=== PATIENT | male | born 1955 | race Caucasian/White ===

== ENCOUNTER 2018-12-30 16:45 | Emergency (ER) | payer MEDICARE, MEDICAID ==
[~2018-12-30] VITALS: Ht 172.7 cm; Wt 68.2 kg
[~2018-12-30 16:45] MED LIST: ACET-76 PO; ASCO500C15 PO; ASPI-611 PO; ATOR-2 PO; AZAT50TA PO; CYAN100020 PO; DIVA125T31 PO; EZET10TA21 PO; FERR325T28 PO; INSU100C10 SQ; INSU100I31 SQ; LACT1CAP67 PO; LORA0.5T PO; MAGN400T39 PO; MULT-66 PO; NITR0.4T51 SL; PANT-47 PO; PREG150C PO; TAMS0.4C32 PO; ZINC50TA60 PF
[2018-12-30 18:39] LABS: BASOPHILS # (AUTO) 0.1 X10'3 (0-0.2); BASOPHILS % (AUTO) 0.9 % (0-1); EOSINOPHILS # (AUTO) 0.2 X10'3 (0-0.9); EOSINOPHILS % (AUTO) 3.3 % (0-6); HEMATOCRIT 47.7 % (42.0-52.0); HEMOGLOBIN 15.6 g/dl (14.0-17.9); LYMPHOCYTES # (AUTO) 1.7 X10'3 (1.1-4.8); LYMPHOCYTES % (AUTO) 23.9 % (21-51); MEAN CORPUSCULAR HEMOGLOBIN 28.6 PG (27.0-31.0); MEAN CORPUSCULAR HGB CONC 32.7 g/dL (33.0-36.5); MEAN CORPUSCULAR VOLUME 87.7 FL (78-98); MEAN PLATELET VOLUME 9.5 FL (7.4-10.4); MONOCYTES # (AUTO) 0.6 X10'3 (0-0.9); MONOCYTES % (AUTO) 8.1 % (2-12); NEUTROPHILS # (AUTO) 4.7 X10'3 (1.8-7.7); NEUTROPHILS % (AUTO) 63.8 % (42-75); PLATELET COUNT 145 X10'3 (140-440); RED BLOOD COUNT 5.44 X10'6 (4.70-6.10); RED CELL DISTRIBUTION WIDTH 15.4 % (11.5-14.5); WHITE BLOOD COUNT 7.3 X10'3 (4.5-11.0)
[2018-12-30 18:53] LABS: ALANINE AMINOTRANSFERASE 78 U/L (12-78); ALBUMIN 2.7 G/DL (3.4-5.0); ALBUMIN/GLOBULIN RATIO 0.9 (1.1-1.5); ALKALINE PHOSPHATASE 100 IU/L (46-116); ANION GAP 6 (8-16); ASPARTATE AMINO TRANSFERASE 69 U/L (10-37); BILIRUBIN,TOTAL 0.5 MG/DL (0.1-1.0); BLOOD UREA NITROGEN 25 MG/DL (7-18); BUN/CREATININE RATIO 26.3 (5.4-32.0); CALCIUM 8.1 MG/DL (8.5-10.1); CHLORIDE 110 MMOL/L (99-107); CREATININE 0.95 MG/DL (0.60-1.10); GLUCOSE 254 MG/DL (70-104); POTASSIUM 4.7 MMOL/L (3.5-5.1); SODIUM 144 MMOL/L (135-145); TOTAL CARBON DIOXIDE 27.8 MMOL/L (24-32); TOTAL PROTEIN 5.8 G/DL (6.4-8.2); eGFR 80 ML/MIN
[2018-12-30] MEDS ORDERED: normal saline 1000ML IV soln IVB ONE (19:00)
[2018-12-30 19:02] LABS: ETHANOL < 0.010 GM/DL (0.0-0.010)
--- NOTE | 2018-12-30 21:27 | NUR ---
Contact information: Caregiver Jia [phone], Caregivers Amphibious Operations Officer: Taty [phone]
--- NOTE | 2018-12-31 06:45 | NUR ---
Patient brought over from Main ER Bed 8 to Overflow Bed 24, via stretcher. Assisted into bed from stretcher, changed into green gowns, patient incontinent and cleaned with warm wipes. Non-verbal during this time.
--- NOTE | 2018-12-31 08:00 | NUR ---
Breakfast tray here. Patient fed his meal as he presents as incapable of caring for himself. Ate 75% of his meal. No facial expression noted throughtout this time.
[2018-12-31] MEDS ORDERED: divalproex sod 125mg tablet.DR PO SCH (08:59)
[2018-12-31] MEDS ORDERED: multivitamins, therapeutics tablet PO SCH (09:00)
[2018-12-31] MEDS ORDERED: acetaminophen 325mg tablet PO PRN (09:00)
[2018-12-31] MEDS ORDERED: nitroGLYCERIN 0.4mg SUBLingual tab SL PRN (09:00)
[2018-12-31] MEDS ORDERED: LORazepam 0.5 MG tablet PO PRN (09:00)
[2018-12-31] MEDS ORDERED: ezetimibe 10mg tablet PO SCH (09:00)
[2018-12-31] MEDS ORDERED: insulin Lispro (HumaLOG) vial - multi-dose SQ SCH ×3 (09:00→09:02)
[2018-12-31] MEDS ORDERED: pregabalin 75mg capsule PO PRN (09:00)
[2018-12-31] MEDS ORDERED: ferrous sulfate 325mg tablet PO SCH (09:04)
[2018-12-31] MEDS ORDERED: ascorbic acid 500mg tablet PO SCH (09:06)
[2018-12-31] MEDS ORDERED: aspirin 81mg tablet.DR PO SCH (09:07)
[2018-12-31] MEDS ORDERED: atorvastatin 20mg tablet PO SCH (09:08)
[2018-12-31] MEDS ORDERED: cyanocobalamin 500mcg tablet PO SCH (09:09)
[2018-12-31] MEDS ORDERED: lactobacillus rhamnosus 10,000 MMU CELLS/CAPSULE PO SCH (09:10)
[2018-12-31] MEDS ORDERED: magnesium oxide 400mg tablet PO SCH (09:11)
[2018-12-31] MEDS ORDERED: pantoprazole 40mg Tablet.DR PO SCH (09:14)
[2018-12-31] MEDS ORDERED: zinc sulfate 220mg capsule PO SCH (09:14)
[2018-12-31] MEDS ORDERED: tamsulosin 0.4mg capsule PO SCH (09:15)
--- NOTE | 2018-12-31 10:00 | NUR ---
Aline Montana RN, Director of [facility], here to evaluate patient for in-patient care.
--- NOTE | 2018-12-31 10:30 | NUR ---
Patient accepted for care at [facility] ([facility]). Gene ruiz from [facility] here to have patient sign voluntary forms for admission. Patient verbalized understanding of admission to [facility]. He has been there before and recognized staff Gene by name.
--- NOTE | 2018-12-31 11:15 | NUR ---
Patient discharged from Bed 24 in the Overflow area to be admitted to [facility]. Given all personal possessions and transported via wheelchair accompanied by Security and staff
[2018-12-31 12:38] VITALS: BP 135/67
[2018-12-31] MEDS ORDERED: insulin glargine (Lantus) pen - multi-dose SQ SCH (21:00)
[2019-01-01] MEDS ORDERED: MELA3TAB64 PO (11:26)
[2019-01-01] MEDS ORDERED: FLUO20CA39 PO (11:26)
[2019-01-01] MEDS ORDERED: DIVA500T9 PO (11:37)
== END 2018-12-31 11:15 ==
LOC: ER 16:47
DX: R62.7 Adult failure to thrive (principal); E86.0 Dehydration; F79 Unspecified intellectual disabilities; E11.9 Type 2 diabetes mellitus without complications; F20.9 Schizophrenia, unspecified; J44.9 Chronic obstructive pulmonary disease, unspecified; Z79.82 Long term (current) use of aspirin; Z79.4 Long term (current) use of insulin; Z79.899 Other long term (current) drug therapy
CPT/HCPCS: 36415; 71045; 80053; 80320; 82948; 84443; 85025; 96360; 96372; 99284; J1815; J7030; J7500

== ENCOUNTER 2018-12-31 11:33 | Inpatient (IN) | payer MEDICARE, MEDICAID ==
[~2018-12-31] VITALS: Ht 172.7 cm; Wt 60.5 kg
[2018-12-31] MEDS ORDERED: mag hydrox/Alum hydrox/simeth 30ml oral suspension PO PRN (12:00)
[2018-12-31] MEDS ORDERED: magnesium hydroxide 30ml (MOM) UD suspension PO PRN (12:00)
[2018-12-31] MEDS ORDERED: LORazepam 1 MG tablet PO PRN (12:00)
[2018-12-31] MEDS ORDERED: hydrOXYzine 25 MG tablet PO PRN (12:00)
[2018-12-31] MEDS ORDERED: acetaminophen 325mg tablet PO PRN ×2 (12:00)
[2018-12-31] MEDS ORDERED: loperamide 2mg capsule PO PRN (12:00)
--- NOTE | 2018-12-31 12:48 | NUR ---
Admission note: Pt admitted voluntarily at 1135 for psychosis from the emergency room. Pt has been unable to feed himself, or shower self, and not taking his medications or speaking or answering questions. Pt was at [facility] with pneumonia. They were unable to get pt on 5150. Pts caregivers brought pt here for help with his schizophrenia. [facility] called and will pick pt up when he is discharged. Call Taty [phone] first and Jia [phone] second. PT HAS HISTORY OF SCHIZOPHRENIA AND DIABETES
[2018-12-31] MEDS ORDERED: INSULIN LISPRO 10 UNIT SQ SCH (13:40)
[2018-12-31] MEDS ORDERED: LORazepam 0.5 MG tablet PO PRN ×2 (13:40→20:15)
[2018-12-31] MEDS ORDERED: nitroGLYCERIN 0.4mg SUBLingual tab SL PRN (13:40)
[2018-12-31] MEDS ORDERED: dextrose 50%-water 50ml dispensing syringe IV PRN ×2 (13:40)
[2018-12-31] MEDS ORDERED: MESSAGE TO PHARMACY PO ONE (13:40)
[2018-12-31] MEDS ORDERED: glucagon, human recombinant 1mg kit SUBCUT PRN (13:40)
[2018-12-31 14:24] VITALS: BP 146/67
[2018-12-31] MEDS: insulin Lispro (HumaLOG) vial - multi-dose SQ SCH ×2 (15:05→21:21)
--- NOTE | 2018-12-31 17:38 | NUR ---
sister Griselda [phone]
--- NOTE | 2018-12-31 18:25 | NUR ---
Nurse note: Pt has a sister that is POA for Medical and is in [facility] until Jan 08. Pt was able to sign his paperwork. Pts sister Griselda states he is allowed to sign when he is capable to. Pts family understands he goes through these "Spells" and the reason is undetermined. Family is aware pt is here and being treated.
[2018-12-31 20:00] VITALS: BP 160/69
[2018-12-31] MEDS: LORazepam 0.5 MG tablet PO SCH (20:51)
[2018-12-31] MEDS ORDERED: insulin glargine (Lantus) pen - multi-dose SQ SCH (21:00)
[2018-12-31] MEDS: insulin glargine (Lantus) pen - multi-dose SQ SCH (21:26)
--- NOTE | 2018-12-31 23:04 | NUR ---
Pt is non contributory with assessment. Pt is cooperative and responds to command, but does not answer questions and just looks blankly at RN. Addendum: 12/31/18 at 2314 by Julia Ramos RN Amended: Links added.
--- NOTE | 2019-01-01 00:12 | NUR ---
NURSING PROGRESS REPORT: Legal hold: Voluntary Client on voluntary status for GD. Report received from FRANK Park with use of SBAR. Why are they here: Pt. admitted for a mental health evaluation. His staff of the [facility] residence he lives at in [place] stated Mr. Turpin has been refusing to care for himself for the past week. According to staff, Mr. Turpin has not been eating or drinking, and has not been taking his medications. Per staff, Mr. Turpin has schizophrenia and has gone into catatonic states in the past associated with his diabetes. Mr. Turpin was seen at [facility] prior to this admission and prescribed antibiotics for possible pneumonia. Assessment What has happened this shift: Pt was sitting in group room eating his dinner at shift change. This conventional underwriter introduced self and attempted to establish rapport. Pt presents as possible agitated or scared. Pt is cooperative, non verbal, but responds to commands and accepting of direction or redirection; however does not respond to questions. Pt stares blankly at this conventional underwriter. Pt is able to feed self, but needs assistance in cutting up meat. Pt is insulin dependent diabetic. Pt finished his dinner around 1999, then was escorted back to his room. Pt's blood glucose at 1705 was 331; HS blood glucose was 381. Per diabetic protocol Level 3, pt was administered 15 units of Humalog and pt was started at 12 units of Lantus per admin protocol. GFR was 80. 1:1 assessment was completed at bedside, pt was cooperative, again pt did not answer questions. Pt is incontinent x2. Brief was changed prior to bed by DONNY Morin. Pt uses a FWW. Pt is medication compliant. Pt's IV was discontinued, catheter was intact. S/I, H/I: Unable to assess A/VH: Unable to assess. Sleep: Currently sleeping. See sleep assessment notation. ADL's: Needs assistance. Pt uses a FWW, incontinent of stool Group attendance: motion picture set up worker, no group. Were meds taken: Medication compliant. Any med S/E: None reported or observed. Mental Status Exam Appearance: Disheveled, wearing green unit scrubs, pt looks older then stated age. Eye contact: Poor Behavior: Cooperative, delayed Speech: Non verbal Mood: Unable to assess Affect: Catatonic Thought process: Unable to assess Thought Content: Unable to assess Cognition: Alert Insight: Unable to assess Judgment: Unable to assess Interventions PRN's used: None Therapeutic interventions: 1:1 therapeutic assessment, medication administration/education/monitoring, provided clear/simple instructions, Q15 min safety checks. Restraints/seclusion/emergency medication: N/A Justification of Continued Inpatient Treatment: Pt is gravely disabled and needs therapeutic support and medication management to provide stablization.
[2019-01-01 07:30] VITALS: BP 149/63
[2019-01-01] MEDS: LORazepam 0.5 MG tablet PO SCH ×3 (07:44→21:11)
[2019-01-01] MEDS: multivitamins, therapeutics tablet PO SCH (07:46)
[2019-01-01] MEDS: pantoprazole 40mg Tablet.DR PO SCH (07:47)
[2019-01-01] MEDS: cyanocobalamin 500mcg tablet PO SCH (07:47)
[2019-01-01] MEDS: aspirin 81mg tablet.DR PO SCH (07:48)
[2019-01-01] MEDS: tamsulosin 0.4mg capsule PO SCH (07:48)
[2019-01-01] MEDS: magnesium oxide 400mg tablet PO SCH (07:50)
[2019-01-01 07:59] LABS: HEMOGLOBIN A1C 9.1 % (4.5-6.2)
[2019-01-01] MEDS ORDERED: divalproex sod 125mg tablet.DR PO SCH (08:00)
[2019-01-01] MEDS ORDERED: ascorbic acid 500mg tablet PO SCH (08:00)
[2019-01-01] MEDS ORDERED: lactobacillus rhamnosus 10,000 MMU CELLS/CAPSULE PO SCH (08:00)
[2019-01-01] MEDS ORDERED: atorvastatin 20mg tablet PO SCH (08:00)
[2019-01-01] MEDS ORDERED: ferrous sulfate 325mg tablet PO SCH (08:00)
[2019-01-01] MEDS ORDERED: ezetimibe 10mg tablet PO SCH (08:00)
[2019-01-01] MEDS ORDERED: zinc sulfate 220mg capsule PO SCH (08:00)
[2019-01-01 08:28] LABS: CHOL/HDL RATIO 2.7 (0.00-4.99); CHOLESTEROL 87 MG/DL (0-200); HDL CHOLESTEROL 32 MG/DL (35-60); LDL CHOLESTEROL 45 MG/DL (50-100); TRIGLYCERIDES 64 MG/DL (20-135)
[2019-01-01] MEDS: insulin Lispro (HumaLOG) vial - multi-dose SQ SCH ×3 (09:09→18:30)
[2019-01-01] MEDS: aripiprazole 5mg tablet PO SCH (09:11)
[2019-01-01] MEDS ORDERED: FLUO20CA39 PO (11:26)
[2019-01-01] MEDS ORDERED: MELA3TAB64 PO (11:26)
[2019-01-01] MEDS ORDERED: DIVA500T9 PO (11:37)
--- NOTE | 2019-01-01 14:56 | NUR ---
DM consult: Pt with hx T1DM current A1c 9.1. Per H&P pt with a decline in self care x 1 week by not eating, drinking, or taking medications per rx. Per physical assessment pt is A/O x 2 and nonverbal. 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 Pt currently not appropriate for DM education at this time. Pt on CHO controlled mech soft/chop all diet with 50% PO intake first meal however now up to 100% meeting nutrient needs. LBM 12/31. No edema or wounds. Will continue to follow. Recommendations: 1) Continue mech soft/chop all CHO controlled diet 2) DM education prior to discharge IF appropriate 3) Routine bowel care 4) Weekly wt Addendum: 01/01/19 at [address] Amended: Links added.
--- NOTE | 2019-01-01 17:50 | NUR ---
NURSING PROGRESS REPORT: Legal hold: Voluntary Client on voluntary status for GD. Report received from FRANK Park with use of SBAR. Why are they here: Pt. admitted for a mental health evaluation. His staff of the [facility] residence he lives at in [place] stated Pt. has been refusing to care for himself for the past week. According to staff, Pt. has not been eating or drinking, and has not been taking his medications. Per staff, Pt. has schizophrenia and has gone into catatonic states in the past associated with his diabetes. Pt. was seen at [facility] prior to this admission and prescribed antibiotics for possible pneumonia. Assessment What has happened this shift: Pt. sleeping at start of shift. Pt. woken up for blood glucose test. Pt.'s CBG were AM 278, Noon 345, and dinner 253. Pt. is level 6 hyperglycemia protocol. 1:1 done at bedside. Pt. is developmentally delayed. Pt. cooperative but gives minimal responses. Pt. took all medications and ate all meals in community room. Pt. needs much prompting for meals and sometimes requires staff to feed him. Pt. is incontinent and needs assistance toileting. S/I, H/I: unable to assess A/VH: Unable to assess Sleep: Pt. napped x2 today. ADL's: Needs assistance. Pt uses a FWW, incontinent of stool Group attendance: Afternoon group. Were meds taken: Medication compliant. Any med S/E: None reported or observed. Mental Status Exam Appearance: Disheveled, wearing green unit scrubs Eye contact: Poor Behavior: Cooperative, delayed Speech: Minimal Mood: Unable to assess Affect: Catatonic Thought process: Unable to assess Thought Content: Unable to assess Cognition: Alert Insight: Unable to assess Judgment: Unable to assess Interventions PRN's used: None Therapeutic interventions: 1:1 therapeutic assessment, medication administration/education/monitoring, provided clear/simple instructions, Q15 min safety checks. Restraints/seclusion/emergency medication: N/A Justification of Continued Inpatient Treatment: Pt is gravely disabled and needs therapeutic support and medication management to provide stablization.
[2019-01-01 20:00] VITALS: BP 139/58
[2019-01-01] MEDS: Melatonin 3mg tablet PO SCH (21:12)
[2019-01-01] MEDS: insulin glargine (Lantus) pen - multi-dose SQ SCH (21:33)
--- NOTE | 2019-01-02 01:23 | NUR ---
NURSING PROGRESS REPORT: Legal hold: Voluntary Client on voluntary status for GD. Report received from FRANK Park with use of SBAR. Why are they here: Pt. admitted for a mental health evaluation. His staff of the [facility] residence he lives at in [place] stated Mr. Turpin has been refusing to care for himself for the past week. According to staff, Mr. Turpin has not been eating or drinking, and has not been taking his medications. Per staff, Mr. Turpin has schizophrenia and has gone into catatonic states in the past associated with his diabetes. Mr. Turpin was seen at [facility] prior to this admission and prescribed antibiotics for possible pneumonia. Assessment What has happened this shift: Pt sitting in group room finishing his dinner at shift change. Pt appears to be less angry and is more verbal. When asked if pt remembered nurse from yesterday he nodded yes. Pt does answer questions with minimal, delayed responses. Pt's continues to be cooperative. 1:1 assessment was completed at bedside. Pt is on Level 6 insulin protocol. Pt's HS blood glucose was 221. Due to Lantus protocol hospitalist was paged about increase of insulin. Per Dr. Gordon pt was to get 14 units of Lantus. Pt medication compliant. Pt is incontinent x2 and needs assistance toileting. Pt's brief was changed prior to going to bed, currently sleeping with distress noted. S/I, H/I: Unable to assess A/VH: Unable to assess. Sleep: Currently sleeping. See sleep assessment notation. ADL's: Needs assistance. Pt uses a FWW, incontinent x2 Group attendance: restaurant shift supervisor, no group. Were meds taken: Medication compliant. Any med S/E: None reported or observed. Mental Status Exam Appearance: Disheveled, wearing green unit scrubs, pt looks older then stated age. Eye contact: Poor Behavior: Cooperative, delayed Speech: Soft, minimal Mood: Unable to assess Affect: Catatonic Thought process: Unable to assess Thought Content: Unable to assess Cognition: Alert Insight: Unable to assess Judgment: Unable to assess Interventions PRN's used: None Therapeutic interventions: 1:1 therapeutic assessment, medication administration/education/monitoring, provided clear/simple instructions, Q15 min safety checks. Restraints/seclusion/emergency medication: N/A Justification of Continued Inpatient Treatment: Pt is gravely disabled and needs therapeutic support and medication management to provide stablization. Addendum: 01/02/19 at 0126 by Julia Ramos RN Pt's A1C was 9.1. Pt prescribed 6mg Melatonin HS, tables come in 3mg only. Will need to have RX adjusted. Will endorse to day shift. Addendum: 01/02/19 at 0546 by Julia Ramos RN Encouraged fluids during encounters.
[2019-01-02 07:30] VITALS: BP 150/66
[2019-01-02] MEDS: aspirin 81mg tablet.DR PO SCH (07:32)
[2019-01-02] MEDS: magnesium oxide 400mg tablet PO SCH (07:32)
[2019-01-02] MEDS: multivitamins, therapeutics tablet PO SCH (07:32)
[2019-01-02] MEDS: FLUoxetine 20mg capsule PO SCH (07:33)
[2019-01-02] MEDS: LORazepam 0.5 MG tablet PO SCH ×3 (07:33→21:09)
[2019-01-02] MEDS: aripiprazole 5mg tablet PO SCH (07:34)
[2019-01-02] MEDS: cyanocobalamin 500mcg tablet PO SCH (07:35)
[2019-01-02] MEDS: pantoprazole 40mg Tablet.DR PO SCH (07:35)
[2019-01-02] MEDS: tamsulosin 0.4mg capsule PO SCH (07:35)
[2019-01-02] MEDS: divalproex sod 250mg ER (24-hour) tablet PO SCH (08:05)
[2019-01-02] MEDS: insulin Lispro (HumaLOG) vial - multi-dose SQ SCH ×3 (08:57→18:20)
--- NOTE | 2019-01-02 17:30 | NUR ---
NURSING PROGRESS REPORT: Legal hold: Voluntary Client on voluntary status for GD. Report received from FRANK Park with use of SBAR. Why are they here: Pt. admitted for a mental health evaluation. His staff of the [facility] residence he lives at in [place] stated Mr. Turpin has been refusing to care for himself for the past week. According to staff, Mr. Turpin has not been eating or drinking, and has not been taking his medications. Per staff, Mr. Turpin has schizophrenia and has gone into catatonic states in the past associated with his diabetes. Mr. Turpin was seen at [facility] prior to this admission and prescribed antibiotics for possible pneumonia. Assessment What has happened this shift: Pt. sleeping at start of shift. Pt. woken up for AM CBG and medications. BG today were 224, 256, 135. Pt. is level 6 on hyperglycemic protocol. Pt. took all medications. Pt. walked to community room for breakfast with aid of walker. Pt. ate his breakfast by himself within an hour. Pt. is on hyperglycemic protocol level 6. Pt. given sliding scale humolog. Pt.'s Lantus increased to 18 units QHS. Pt. is incontinent of bowel and bladder. Pt. needs prompting for toileting Pt. showered today. Pt. encouraged with po fluids. Pt. napped x2. Pt. will feed himself with prompting. S/I, H/I: Unable to assess A/VH: Unable to assess. Sleep: Currently sleeping. See sleep assessment notation. ADL's: Needs assistance. Pt uses a FWW, incontinent x1 Group attendance: Yes Were meds taken: Yes Any med S/E: None reported or observed. Mental Status Exam Appearance: Disheveled, wearing green unit scrubs, Eye contact: Poor Behavior: Cooperative, delayed Speech: Soft, minimal, delayed Mood: Unable to assess Affect: blunted Thought process: Unable to assess Thought Content: Unable to assess Cognition: A&O to self and place (knew he was in [place]) Insight: Unable to assess Judgment: Unable to assess Interventions PRN's used: None Therapeutic interventions: 1:1 therapeutic assessment, medication administration/education/monitoring, provided clear/simple instructions, Q15 min safety checks. Restraints/seclusion/emergency medication: N/A Justification of Continued Inpatient Treatment: Pt is gravely disabled and needs therapeutic support and medication management to provide stablization.
[2019-01-02 19:57] VITALS: BP 154/58
[2019-01-02] MEDS: dextrose ORAL solution 15 GM/59 ML bottle PO PRN (21:08)
[2019-01-02] MEDS: Melatonin 3mg tablet PO SCH (21:09)
[2019-01-02] MEDS: insulin glargine (Lantus) pen - multi-dose SQ SCH (22:26)
--- NOTE | 2019-01-03 04:40 | NUR ---
NURSING PROGRESS REPORT: Legal hold: Voluntary Client on voluntary status for GD. Report received from ANUJ Park with use of SBAR. Why are they here: Pt. admitted for a mental health evaluation. His staff of the [facility] residence he lives at in [place] stated Mr. Turpin has been refusing to care for himself for the past week. According to staff, Mr. Turpin has not been eating or drinking, and has not been taking his medications. Per staff, Mr. Turpin has schizophrenia and has gone into catatonic states in the past associated with his diabetes. Mr. Turpin was seen at [facility] prior to this admission and prescribed antibiotics for possible pneumonia. Assessment What has happened this shift: Patient in group room finishing dinner at the beginning of shift. Patient also consumed HS snack in the group room. Patient is a level six per insulin protocol. Initial HS BS 70 at 2044, CRN aware and glucose shot provided at 2109, 2134 patient BS 152 and HS Lantus provided per order. Later in the shift while patient at rest his BS recheck 133. Patient was vocally nonresponsive to all assessment questions and replied "yes" or "no" to a few questions but most of the shift patient non-vocal. Patient would look in the direction of this health science writer when being talked to and when coached through an action showed understanding through body language. Such as, this health science writer explained his pills and he held them in his hand, looked at them, then took them. S/I, H/I: Unable to assess A/VH: Unable to assess. Sleep: asleep at this time ADL's: Needs assistance. Group attendance: no groups this shift Were meds taken: Yes Any med S/E: None reported or observed. Mental Status Exam Appearance: Disheveled, wearing green unit scrubs Eye contact: Poor Behavior: Cooperative, delayed Speech: Soft, minimal, delayed Mood: Unable to assess Affect: blunted Thought process: Unable to assess Thought Content: Unable to assess Cognition: responsive to name, didn't answer questions from this health science writer Insight: Unable to assess Judgment: Unable to assess Interventions PRN's used: PO glucose per protocol, effective Therapeutic interventions: 1:1 therapeutic assessment, medication administration/education/monitoring, provided clear/simple instructions, Q15 min safety checks. Restraints/seclusion/emergency medication: N/A Justification of Continued Inpatient Treatment: Pt is gravely disabled and needs therapeutic support and medication management to provide stablization.
[2019-01-03] MEDS: tamsulosin 0.4mg capsule PO SCH (07:27)
[2019-01-03] MEDS: FLUoxetine 20mg capsule PO SCH (07:28)
[2019-01-03] MEDS: LORazepam 0.5 MG tablet PO SCH ×3 (07:29→20:46)
[2019-01-03] MEDS: aspirin 81mg tablet.DR PO SCH (07:29)
[2019-01-03] MEDS: aripiprazole 5mg tablet PO SCH (07:29)
[2019-01-03] MEDS: multivitamins, therapeutics tablet PO SCH (07:30)
[2019-01-03] MEDS: pantoprazole 40mg Tablet.DR PO SCH (07:30)
[2019-01-03] MEDS: cyanocobalamin 500mcg tablet PO SCH (07:30)
[2019-01-03] MEDS: magnesium oxide 400mg tablet PO SCH (07:30)
[2019-01-03] MEDS: divalproex sod 250mg ER (24-hour) tablet PO SCH (07:35)
[2019-01-03 08:00] VITALS: BP_SYST 144; BP_DIAS 71; BP_DIAS 72
[2019-01-03] MEDS: insulin Lispro (HumaLOG) vial - multi-dose SQ SCH ×2 (09:17→14:10)
--- NOTE | 2019-01-03 13:04 | NUR ---
NURSING PROGRESS REPORT: Legal hold: Voluntary Client on voluntary status for GD. Report received from Renetta Werner RN with use of SBAR. Why are they here: Pt. admitted for a mental health evaluation. His staff of the [facility] residence he lives at in [place] stated Mr. Turpin has been refusing to care for himself for the past week. According to staff, Mr. Turpin has not been eating or drinking, and has not been taking his medications. Per staff, Mr. Turpin has schizophrenia and has gone into catatonic states in the past associated with his diabetes. Mr. Turpin was seen at [facility] prior to this admission and prescribed antibiotics for possible pneumonia. Assessment What has happened this shift: Nela was found in the group room at change of shift. He is mostly nonverbal. He did answer several questions with yes or no that were closed ended questions. He ate all of the food that was served to him although it took him an extraordinarily long time to finish his food. He required some prompting and cutting of his food into smaller bites. He ambulates well using a walker. He is able to swallow his medications. He offers his finger for blood glucose checks. Blood sugars were 144 and 331. he continues to be a level 6. S/I, H/I: Unable to assess A/VH: Unable to assess. Sleep: Currently sleeping. See sleep assessment notation. ADL's: Needs assistance. Pt uses a FWW, incontinent x1 Group attendance: Yes Were meds taken: Yes Any med S/E: None reported or observed. Mental Status Exam Appearance: Disheveled, wearing green unit scrubs, Eye contact: Poor Behavior: Cooperative, delayed Speech: Soft, minimal, delayed Mood: Unable to assess Affect: blunted Thought process: Unable to assess Thought Content: Unable to assess Cognition: A&O to self and place (knew he was in [place]) Insight: Unable to assess Judgment: Unable to assess Interventions PRN's used: None Therapeutic interventions: 1:1 therapeutic assessment, medication administration/education/monitoring, provided clear/simple instructions, Q15 min safety checks. Restraints/seclusion/emergency medication: N/A Justification of Continued Inpatient Treatment: Pt is gravely disabled and needs therapeutic support and medication management to provide stablization.
[2019-01-03 19:35] VITALS: BP 167/77
[2019-01-03] MEDS: Melatonin 3mg tablet PO SCH (20:47)
[2019-01-03] MEDS: insulin glargine (Lantus) pen - multi-dose SQ SCH (21:00)
--- NOTE | 2019-01-03 22:03 | NUR ---
NURSING PROGRESS REPORT: Legal hold: Voluntary Client on voluntary status for GD. Report received from FRANK Park with use of SBAR. Why are they here: Pt. admitted for a mental health evaluation. His staff of the [facility] residence he lives at in [place] stated Mr. Turpin has been refusing to care for himself for the past week. According to staff, Mr. Turpin has not been eating or drinking, and has not been taking his medications. Per staff, Mr. Turpin has schizophrenia and has gone into catatonic states in the past associated with his diabetes. Mr. Turpin was seen at [facility] prior to this admission and prescribed antibiotics for possible pneumonia. Assessment What has happened this shift: Nela was found in the group room at change of shift. He is mostly nonverbal. He did answer several questions with yes or no that were closed ended questions. He ate all of the food that was served to him although it took him an extraordinarily long time to finish his food. He ambulates well using a walker. He is able to swallow his medications. He offers his finger for blood glucose checks. Blood sugars were 65 @HS and lantus was held. he continues to be a level 6. S/I, H/I: Unable to assess A/VH: Unable to assess. Sleep: Currently sleeping. See sleep assessment notation. ADL's: Needs assistance. Pt uses a FWW, incontinent x1 Group attendance: Yes Were meds taken: Yes Any med S/E: None reported or observed. Mental Status Exam Appearance: Disheveled, wearing green unit scrubs, Eye contact: Poor Behavior: Cooperative, delayed Speech: Soft, minimal, delayed Mood: Unable to assess Affect: blunted Thought process: Unable to assess Thought Content: Unable to assess Cognition: A&O to self and place (knew he was in [place]) Insight: Unable to assess Judgment: Unable to assess Interventions PRN's used: None Therapeutic interventions: 1:1 therapeutic assessment, medication administration/education/monitoring, provided clear/simple instructions, Q15 min safety checks. Restraints/seclusion/emergency medication: N/A Justification of Continued Inpatient Treatment: Pt is gravely disabled and needs therapeutic support and medication management to provide stablization.
[2019-01-04] MEDS: LORazepam 0.5 MG tablet PO SCH ×3 (07:19→20:54)
[2019-01-04] MEDS: aspirin 81mg tablet.DR PO SCH (07:19)
[2019-01-04] MEDS: cyanocobalamin 500mcg tablet PO SCH (07:20)
[2019-01-04] MEDS: pantoprazole 40mg Tablet.DR PO SCH (07:20)
[2019-01-04] MEDS: multivitamins, therapeutics tablet PO SCH (07:20)
[2019-01-04] MEDS: magnesium oxide 400mg tablet PO SCH (07:20)
[2019-01-04] MEDS: tamsulosin 0.4mg capsule PO SCH (07:20)
[2019-01-04] MEDS: FLUoxetine 20mg capsule PO SCH (07:20)
[2019-01-04 08:00] VITALS: BP 154/53
[2019-01-04] MEDS: insulin Lispro (HumaLOG) vial - multi-dose SQ SCH ×2 (09:10→19:17)
[2019-01-04] MEDS: divalproex sod 250mg ER (24-hour) tablet PO SCH (09:11)
--- NOTE | 2019-01-04 16:32 | NUR ---
NURSING PROGRESS REPORT: Papi Legal hold: Voluntary Client on voluntary status for GD. Report received from FRANK Brand with use of SBAR. Why are they here: Pt. admitted for a mental health evaluation. His staff of the [facility] residence he lives at in [place] stated Mr. Turpin has been refusing to care for himself for the past week. According to staff, Mr. Turpin has not been eating or drinking, and has not been taking his medications. Per staff, Mr. Turpin has schizophrenia and has gone into catatonic states in the past associated with his diabetes. Mr. Turpin was seen at [facility] prior to this admission and prescribed antibiotics for possible pneumonia. Assessment What has happened this shift: Patient was in bed to begin this shift. After assessment, client refused am finger stick. He said, "no" and pulled his hand back when asked to conduct finger stick. Client was mute the rest of the assessment. Soil Science Technical Officer was able to obtain a FS and it was 344, Currently (0844 hours) waiting for client to finish am meal so proper insulin dose can be given. Client is able to self feed but would do much better if he was assisted while eating. Client was given his Insulin per orders at 0905. Correctional dose was 28 units and Nutritional adjustment was for 18 additional units for a total of 46 units delivered in left arm. Compliant with medications and consumed majority of breakfast meal. Client was assisted back to his room after breakfast where he rested in bed with eyes closed .Respirations unlabored. No signs /symptoms of hyper/hypo glycemia noted. Client was prompted to come to Group room for lunch, Client was having a difficult time feeding himself so he was assisted by this marketing copywriter and he consumed 100% of his lunch. Client elected to participate in afternoon group and tolerated the group activities well. Client did refuse FS at noon and was adament that procedure would not be conducted, (forcefully pulled away). He was assessed frequently this afternoon after refusal and shows no S/S of hyper/hypo glycemia. Charge Nurse aware. S/I, H/I: Unable to assess A/VH: Unable to assess. Sleep: Rested during shift as needed. ADL's: Needs assistance and prompts. Group attendance: Yes Were meds taken: Yes Any med S/E: None reported or observed. Mental Status Exam Appearance: Disheveled, wearing green unit scrubs, Eye contact: Poor Behavior: Cooperative, delayed Speech: Soft, minimal, delayed Mood: Unable to assess Affect: blunted Thought process: Unable to assess Thought Content: Unable to assess Cognition: A&O to self and place (knew he was in [place]) Insight: Unable to assess Judgment: Unable to assess Interventions PRN's used: None Therapeutic interventions: 1:1 therapeutic assessment, medication administration/education/monitoring, provided clear/simple instructions, Q15 min safety checks. Restraints/seclusion/emergency medication: N/A Justification of Continued Inpatient Treatment: Pt is gravely disabled and needs therapeutic support and medication management to provide stablization. Addendum: 01/04/19 at 1702 by Son Ruiz RN Client permitted a FS at about 1645 hours. Result was 335. Client refused FS at noon meal. Addendum: 01/04/19 at 1801 by Son Ruiz RN Fs at 1730 was 348. Info was passed to Xavier LESLIE as well as Rell who has this patient over the night warehouse manager. Addendum: 01/04/19 at 1812 by Son Ruiz RN Client was incontinent of urine before evening meal. Client was cleaned, dressed and escorted to dinner in the Group room.
[2019-01-04] MEDS ORDERED: insulin regular, human 10 units/0.1 ml syringe SQ ONE (20:35)
--- NOTE | 2019-01-04 20:38 | NUR ---
Contacted P Dr Cantu regarding patients blood sugar of 462, ordered 18 u Regular now and also administer patients scheduled dose of Lantus and recheck blood sugar in 6 hours. Addendum: 01/04/19 at 2105 by Serina Gardner RN Clarification: Order was for Humalog Lispro 18 U now.
[2019-01-04 20:48] VITALS: BP 174/76
[2019-01-04] MEDS: Melatonin 3mg tablet PO SCH (20:52)
[2019-01-04] MEDS: aripiprazole 5mg tablet PO SCH (20:53)
[2019-01-04] MEDS ORDERED: insulin Lispro (HumaLOG) vial - multi-dose SQ ONE (21:05)
[2019-01-04] MEDS: insulin glargine (Lantus) pen - multi-dose SQ SCH (21:05)
--- NOTE | 2019-01-05 03:41 | NUR ---
NURSING PROGRESS REPORT Legal hold: Voluntary Client on voluntary status for GD. Report received from FRANK Park with use of SBAR. Why are they here: Pt. admitted for a mental health evaluation. His staff of the [facility] residence he lives at in [place] stated Mr. Turpin has been refusing to care for himself for the past week. According to staff, Mr. Turpin has not been eating or drinking, and has not been taking his medications. Per staff, Mr. Turpin has schizophrenia and has gone into catatonic states in the past associated with his diabetes. Mr. Turpin was seen at [facility] prior to this admission and prescribed antibiotics for possible pneumonia. Assessment What has happened this shift: Pt spent evening sitting up in Dining room. Pt was calm with constricted affect. Pt took several minutes to answer questions but would answer yes or no. Pt is mostly non verbal at this time. Pts BG was 348 at dinner and pt ate approx 15carbs, pt was given 27 units of insulin per protocol. Evening BG was 462, hospitalist was contacted and we were instructed to give 18U of regular insulin and 18 units of Lantus and recheck BG 6 hours later. Pts BG was 56. Pt was given a snack and recheckd in 15 min to BG of 108. Pt is currently asymptomatic and resting comfortably. Pt S/I, H/I: Unable to assess A/VH: Unable to assess. Sleep: Pt sleeping well ADL's: Needs assistance and prompts. Group attendance: Yes Were meds taken: Yes Any med S/E: None reported or observed. Mental Status Exam Appearance: Disheveled, wearing green unit scrubs, Eye contact: Fair Behavior: Cooperative, delayed Speech: Soft, minimal, delayed Mood: Unable to assess Affect: blunted Thought process: Unable to assess Thought Content: Unable to assess Cognition: A&O to self Insight: Unable to assess Judgment: Unable to assess Interventions PRN's used: None Therapeutic interventions: 1:1 therapeutic assessment, medication administration/education/monitoring, provided clear/simple instructions, Q15 min safety checks. Restraints/seclusion/emergency medication: N/A Justification of Continued Inpatient Treatment: Pt is gravely disabled and needs therapeutic support and medication management to provide stablization.
[2019-01-05] MEDS: aspirin 81mg tablet.DR PO SCH (07:24)
[2019-01-05] MEDS: pantoprazole 40mg Tablet.DR PO SCH (07:24)
[2019-01-05] MEDS: magnesium oxide 400mg tablet PO SCH (07:24)
[2019-01-05] MEDS: multivitamins, therapeutics tablet PO SCH (07:25)
[2019-01-05] MEDS: cyanocobalamin 500mcg tablet PO SCH (07:25)
[2019-01-05] MEDS: FLUoxetine 20mg capsule PO SCH (07:25)
[2019-01-05] MEDS: tamsulosin 0.4mg capsule PO SCH (07:25)
[2019-01-05 08:00] VITALS: BP 120/68
[2019-01-05] MEDS: LORazepam 0.5 MG tablet PO SCH ×3 (08:45→20:25)
[2019-01-05] MEDS: divalproex sod 250mg ER (24-hour) tablet PO SCH (08:46)
--- NOTE | 2019-01-05 10:45 | NUR ---
Spoke to Pt's sister, Griselda. She states that she will be up in the [place] area tomorrow. She states that her was ill so it delayed their travels here. Informed Pt of this.
[2019-01-05] MEDS: insulin Lispro (HumaLOG) vial - multi-dose SQ SCH ×2 (14:31→19:27)
--- NOTE | 2019-01-05 16:11 | NUR ---
Group Art Therapy (Continued) Patient was in the group room as the session began. This was his 2nd art therapy group the second day in a row. Pt.did not express an interest in remaining in the group, however, was encouraged to stay and enjoy watching the video landscape with relaxation music. Pt. was not interested in the assigned activity, as his functional level was impaired to complete this task. Patient was provided with an individual project using the '[employer]'. Pt. was shown how he could interact with the sand. Pt. chose NOT to utilize this activity. Pt. was then shown by this therapist, how to do a hand tracing. Patient, with prompting, WAS able to follow this visual demonstration, and put his hand (timidly at first) on he table/paper allowing therapist to trace. Names were put on each hand drawing, (his and this therapists') with the word "Hi!" in between each pair of hands and hung on the wall. Pt. was able to follow with his eyes as this was done. Pt. did not verbalize during session. He was assisted by a tech back to his room at the end of the session. Stefani March MA, NITROGEN OPERATOR #[id number] [facility] Art Therapsist Addendum: 01/05/19 at 1616 by Stefani March SS Amended: Links added.
--- NOTE | 2019-01-05 17:12 | NUR ---
NURSING PROGRESS REPORT: Legal hold: Voluntary Client on voluntary status for GD. Report received from FRANK Park with use of SBAR. Why are they here: Pt. admitted for a mental health evaluation. His staff of the [facility] residence he lives at in [place] stated Mr. Turpin has been refusing to care for himself for the past week. According to staff, Mr. Turpin has not been eating or drinking, and has not been taking his medications. Per staff, Mr. Turpin has schizophrenia and has gone into catatonic states in the past associated with his diabetes. Mr. Turpin was seen at [facility] prior to this admission and prescribed antibiotics for possible pneumonia. Assessment What has happened this shift: Pt was resting in bed peacefully at change of shift. Pt was calm with constricted affect. Pt was pleasant and cooperative with care. He is incontinent of B&B if not prompted. He was soiled at change of shift and Pt was toileted, given a sponge bath, and fresh green scrubs. No skin breakdown noted. Morning BS was 88. Pt is mostly non verbal at this time but does answer some questions with one or two word answers. He needs prompting, but is able to perform some ADLs on his own. He is up for all meals and groups in the community room and did not nap this shift. It was noted by this nurse that he does not like to be touched and recoils often. Spoke to his sister, Griselda, she states that he is one of nine children and has a female twin named Sheryl. He was seen interacting with peers in art therapy and smiling and talking to unit nurse and unit tech during toileting. He ambulated self with some prompting without walker. S/I, H/I: Unable to assess A/VH: "no" Sleep: up this shift ADL's: Needs assistance and prompts. Group attendance: Yes Were meds taken: Yes Any med S/E: None reported or observed. Mental Status Exam Appearance: Disheveled, wearing green unit scrubs, Eye contact: Fair Behavior: Cooperative, delayed Speech: Soft, minimal, delayed Mood: Unable to assess Affect: blunted Thought process: Unable to assess Thought Content: Unable to assess Cognition: A&O to self Insight: Unable to assess Judgment: Unable to assess Interventions PRN's used: None Therapeutic interventions: 1:1 therapeutic assessment, medication administration/education/monitoring, provided clear/simple instructions, Q15 min safety checks. Restraints/seclusion/emergency medication: N/A Justification of Continued Inpatient Treatment: Pt is gravely disabled and needs therapeutic support and medication management to provide stabilization and encourage independence.
[2019-01-05] MEDS: amox tr/potassium clavulanate 875/125mg TAB PO SCH (17:49)
[2019-01-05 20:17] VITALS: BP 152/70
[2019-01-05] MEDS: Melatonin 3mg tablet PO SCH (20:26)
[2019-01-05] MEDS: aripiprazole 5mg tablet PO SCH (20:28)
[2019-01-05] MEDS: insulin glargine (Lantus) pen - multi-dose SQ SCH (20:51)
[2019-01-05] MEDS ORDERED: Melatonin 3mg tablet PO ONE (21:35)
--- NOTE | 2019-01-05 22:02 | NUR ---
NURSING PROGRESS REPORT: Legal hold: Voluntary Client on voluntary status for GD. Report received from FRANK Park with use of SBAR. Why are they here: Pt. admitted for a mental health evaluation. His staff of the [facility] residence he lives at in [place] stated Mr. Turpin has been refusing to care for himself for the past week. According to staff, Mr. Turpin has not been eating or drinking, and has not been taking his medications. Per staff, Mr. Turpin has schizophrenia and has gone into catatonic states in the past associated with his diabetes. Mr. Turpin was seen at [facility] prior to this admission and prescribed antibiotics for possible pneumonia. Assessment What has happened this shift: Pt was sitting alone in the break room at change of shift with a glass of lemon juice in his hand. Pt did not seem able to continue drinking the juice on his own without assistance. Removed cup from patients hand. Pts BG was noted to be 182 prior to dinner. Pt was given 15 units of Regular insulin to cover dinner meal. Pt is mostly non verbal. Spoke to pt about his family and he smiled and said yes but did not speak further. Pt was assisted to his room for toileting and spent remainder of the evening in his room before going to bed. Pts HS BG was 76. Lantus given. Pt was offered a snack but he refused. Pt was toileted on schedule and assisted to bed. S/I, H/I: Unable to assess A/VH: HO[place] Sleep: sleeping well ADL's: Needs assistance and prompts. Pt is able to stand up from the toilet w/prompting. Group attendance: Yes Were meds taken: Yes Any med S/E: None reported or observed. Mental Status Exam Appearance: Disheveled, wearing green unit scrubs, Eye contact: Fair Behavior: Cooperative, delayed Speech: Soft, minimal, delayed Mood: Unable to assess Affect: blunted Thought process: Unable to assess Thought Content: Unable to assess Cognition: A&O to self Insight: Unable to assess Judgment: Unable to assess Interventions PRN's used: None Therapeutic interventions: 1:1 therapeutic assessment, medication administration/education/monitoring, provided clear/simple instructions, Q15 min safety checks. Restraints/seclusion/emergency medication: N/A Justification of Continued Inpatient Treatment: Pt is gravely disabled and needs therapeutic support and medication management to provide stabilization and encourage independence.
[2019-01-06] MEDS: tamsulosin 0.4mg capsule PO SCH (07:41)
[2019-01-06] MEDS: magnesium oxide 400mg tablet PO SCH (07:41)
[2019-01-06] MEDS: pantoprazole 40mg Tablet.DR PO SCH (07:41)
[2019-01-06] MEDS: multivitamins, therapeutics tablet PO SCH (07:41)
[2019-01-06] MEDS: LORazepam 0.5 MG tablet PO SCH ×3 (07:42→20:53)
[2019-01-06] MEDS: cyanocobalamin 500mcg tablet PO SCH (07:42)
[2019-01-06] MEDS: aspirin 81mg tablet.DR PO SCH (07:42)
[2019-01-06] MEDS: FLUoxetine 20mg capsule PO SCH (07:42)
[2019-01-06] MEDS: divalproex sod 250mg ER (24-hour) tablet PO SCH (07:46)
[2019-01-06] MEDS: amox tr/potassium clavulanate 875/125mg TAB PO SCH ×2 (07:46→17:07)
[2019-01-06 08:15] VITALS: BP 151/69
[2019-01-06] MEDS: insulin Lispro (HumaLOG) vial - multi-dose SQ SCH ×2 (09:26→14:10)
[2019-01-06] MEDS ORDERED: LORazepam 2 mg/ml vial IM ONE (10:35)
--- NOTE | 2019-01-06 12:02 | NUR ---
Reassessment: patient eating well with assistance, eating 75-100% PO with help. Non verbal. Having regular BMs. Will continue to follow. Recommendations: 1) Continue mech soft/chop all CHO controlled diet 2) DM education prior to discharge IF appropriate 3) Routine bowel care 4) Weekly wt Addendum: 01/06/19 at [address] Amended: Links added.
--- NOTE | 2019-01-06 14:27 | NUR ---
[facility] CONTACT: SW made TC to [facility] at , to communicate w/ pt's assigned case management social worker, Rosie Hopejuan jose at [phone]. SW left message requesting a return contact. Pt completed JAH for communication w/ [facility] Nalini Acevedo, Air Pollution Compliance Inspector LICENSE EXAMINER [id number] Supervised by Fredo Reza, [id number]
--- NOTE | 2019-01-06 17:39 | NUR ---
NURSING PROGRESS REPORT: Legal hold: Voluntary Client on voluntary status for GD. Report received from FRANK Smalls with use of SBAR. Why are they here: Pt. admitted for a mental health evaluation. His staff of the [facility] residence he lives at in [place] stated Mr. Turpin has been refusing to care for himself for the past week. According to staff, Mr. Turpin has not been eating or drinking, and has not been taking his medications. Per staff, Mr. Turpin has schizophrenia and has gone into catatonic states in the past associated with his diabetes. Mr. Turpin was seen at [facility] prior to this admission and prescribed antibiotics for possible pneumonia. Assessment What has happened this shift: Pt resting in bed peacefully at change of shift. Pt's BG was 108 prior to breakfast. He was given 6 units of Humalog. Pt was up and present for all meals and groups but is non-verbal the whole shift. He does not make eye contact and minimally responds to prompting. He had some difficulty taking his AM medications AEB holding them in his mouth until they began to melt and then took water to swallow them. For afternoon medications, I mixed them with applesauce and Pt took them without incident or difficulty. He ambulates himself with prompting and was dry in between his toliet prompting. He received 32 units of Humalog after lunch and his BG before dinner was 99. He received a one time dose of Ativan IM with no behavioral response. 1300 oral Ativan was held per ALONDRA Oconnell's order. He is seen sitting in the community room throughout the day. This RN attempted to engage and interact with patient, but Pt does not respond. Will continue to monitor. S/I, H/I: Unable to assess A/VH: Unable to assess Sleep: no sleep this shift ADL's: Needs assistance and prompts. Pt is able to stand up from the toilet w/prompting. Group attendance: Yes Were meds taken: Yes Any med S/E: None reported or observed. Mental Status Exam Appearance: Disheveled, wearing green unit scrubs, Eye contact: none Behavior: Cooperative, delayed Speech: absent Mood: appears disbondent, Unable to assess Affect: blunted Thought process: Unable to assess Thought Content: Unable to assess Cognition: Unable to assess Insight: Unable to assess Judgment: Unable to assess Interventions PRN's used: None Therapeutic interventions: 1:1 therapeutic assessment, medication administration/education/monitoring, provided clear/simple instructions, Q15 min safety checks. Restraints/seclusion/emergency medication: N/A Justification of Continued Inpatient Treatment: Pt is gravely disabled and needs therapeutic support and medication management to provide stabilization and encourage independence.
[2019-01-06 20:00] VITALS: BP 168/83
[2019-01-06] MEDS: Melatonin 3mg tablet PO SCH (20:53)
[2019-01-06] MEDS: lactobacillus rhamnosus 10,000 MMU CELLS/CAPSULE PO SCH (20:53)
[2019-01-06] MEDS: aripiprazole 5mg tablet PO SCH (20:54)
[2019-01-06] MEDS ORDERED: Melatonin 3mg tablet PO ONE (21:00)
[2019-01-06] MEDS: insulin glargine (Lantus) pen - multi-dose SQ SCH (21:25)
--- NOTE | 2019-01-06 23:10 | NUR ---
NURSING PROGRESS REPORT: Legal hold: Voluntary Client on voluntary status for GD. Report received from FRANK Medley with use of SBAR. Why are they here: Pt. admitted for a mental health evaluation. His staff of the [facility] residence he lives at in [place] stated Mr. Turpin has been refusing to care for himself for the past week. According to staff, Mr. Turpin has not been eating or drinking, and has not been taking his medications. Per staff, Mr. Turpin has schizophrenia and has gone into catatonic states in the past associated with his diabetes. Mr. Turpin was seen at [facility] prior to this admission and prescribed antibiotics for possible pneumonia. Assessment What has happened this shift: Pt was sitting alone in community room at shift change. Pt is nonverbal and made minimal eye contact. Talked with patient and tried to encourage fluid intake as his mucus membranes are dry. Pt would open his mouth as if he wanted to drink, but when straw touched his lip he pulled his head back. Got patient up to take him to the bathroom and pt was wet. With the help of Mikel PCT pt was toileting and changed into dry scrubs. Pt was up for HS snack, but refused. Pt was assisted back to his room where he again was toileted and then assisted to bed. Pt took his medication without incident. HS BG was 330. Pt was administered 18 units of Lantus in left lower ABD. Pt was a little more receptive when he was in bed and nodded when asked if he would take his medication. Pt's blunted affect became a little more animated. S/I, H/I: Unable to assess A/VH: Unable to assess Sleep: Currently sleeping with distress noted. See sleep assessment notation. ADL's: Needs assistance and prompts. Pt is able to stand up from the toilet w/prompting. Group attendance: account resolution analyst, no group Were meds taken: Medication compliant Any med S/E: None reported or observed. Mental Status Exam Appearance: Disheveled, wearing green unit scrubs, Eye contact: Minimal Behavior: Cooperative, delayed Speech: Non verbal this shift Mood: Unable to assess Affect: Blunted Thought process: Unable to assess Thought Content: Unable to assess Cognition: A&O to self Insight: Unable to assess Judgment: Unable to assess Interventions PRN's used: None Therapeutic interventions: 1:1 therapeutic assessment, medication administration/education/monitoring, provided clear/simple instructions, toileting q2h, Q15 min safety checks. Restraints/seclusion/emergency medication: N/A Justification of Continued Inpatient Treatment: Pt is gravely disabled and needs therapeutic support and medication management to provide stabilization and encourage independence. Addendum: 01/07/19 at 032 by Julia Ramos RN Assisted pt to toilet, noticed pt had mild congestive cough. Auscultated lungs - lower lobes clear, rhonchi heard in upper lobes. Encouraged pt to cough. Pt doesn't have strong cough reflex.Will continue to monitor and endorse to next shift. Addendum: 01/07/19 at 0328 by Julia Ramos RN Pt's temp 98.7
[2019-01-07 08:00] VITALS: BP 157/67
[2019-01-07] MEDS: LORazepam 0.5 MG tablet PO SCH ×3 (08:07→21:05)
[2019-01-07] MEDS: pantoprazole 40mg Tablet.DR PO SCH (08:08)
[2019-01-07] MEDS: cyanocobalamin 500mcg tablet PO SCH (08:09)
[2019-01-07] MEDS: divalproex sod 250mg ER (24-hour) tablet PO SCH (08:09)
[2019-01-07] MEDS: lactobacillus rhamnosus 10,000 MMU CELLS/CAPSULE PO SCH ×2 (08:10→21:04)
[2019-01-07] MEDS: FLUoxetine 20mg capsule PO SCH (08:10)
[2019-01-07] MEDS: magnesium oxide 400mg tablet PO SCH (08:10)
[2019-01-07] MEDS: tamsulosin 0.4mg capsule PO SCH (08:10)
[2019-01-07] MEDS: multivitamins, therapeutics tablet PO SCH (08:11)
[2019-01-07] MEDS: aspirin 81mg tablet.DR PO SCH (08:11)
--- NOTE | 2019-01-07 08:41 | NUR ---
[facility] CONTACT: SW received message from Sheron Alvarez at [phone], who returned contact for Rosie iL. SW returned call and left message. Nalini Acevedo, Press Officer [facility] [id number] Supervised by Fredo Reza, [id number] Addendum: 01/07/19 at 1234 by Nalini Acevedo SS Addition to note: Pt had visit w/ Rosie James, who reports pt has his own apartment in [place] that he will return to once he is better. 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 He encouraged this freelance copywriter to contact Awilda at [facility] at [phone], to schedule a visit and coordinate discharge planning.
[2019-01-07 11:06] LABS: BASOPHILS # (AUTO) 0.1 X10'3 (0-0.2); BASOPHILS % (AUTO) 0.8 % (0-1); EOSINOPHILS # (AUTO) 0.2 X10'3 (0-0.9); EOSINOPHILS % (AUTO) 1.7 % (0-6); HEMATOCRIT 44.9 % (42.0-52.0); HEMOGLOBIN 14.8 g/dl (14.0-17.9); LYMPHOCYTES # (AUTO) 1.4 X10'3 (1.1-4.8); LYMPHOCYTES % (AUTO) 15.9 % (21-51); MEAN CORPUSCULAR HEMOGLOBIN 28.2 PG (27.0-31.0); MEAN CORPUSCULAR HGB CONC 32.9 g/dL (33.0-36.5); MEAN CORPUSCULAR VOLUME 85.8 FL (78-98); MEAN PLATELET VOLUME 10.9 FL (7.4-10.4); MONOCYTES # (AUTO) 0.6 X10'3 (0-0.9); MONOCYTES % (AUTO) 7.3 % (2-12); NEUTROPHILS # (AUTO) 6.6 X10'3 (1.8-7.7); NEUTROPHILS % (AUTO) 74.3 % (42-75); PLATELET COUNT 169 X10'3 (140-440); RED BLOOD COUNT 5.23 X10'6 (4.70-6.10); WHITE BLOOD COUNT 8.9 X10'3 (4.5-11.0)
[2019-01-07] MEDS: insulin Lispro (HumaLOG) vial - multi-dose SQ SCH ×2 (14:53→18:26)
--- NOTE | 2019-01-07 17:45 | NUR ---
NURSING PROGRESS REPORT: Legal hold: Voluntary Client on voluntary status for GD. Report received from FRANK Smalls with use of SBAR. Why are they here: Pt. admitted for a mental health evaluation. His staff of the [facility] residence he lives at in [place] stated Mr. Turpin has been refusing to care for himself for the past week. According to staff, Mr. Turpin has not been eating or drinking, and has not been taking his medications. Per staff, Mr. Turpin has schizophrenia and has gone into catatonic states in the past associated with his diabetes. Mr. Turpin was seen at [facility] prior to this admission and prescribed antibiotics for possible pneumonia. Assessment What has happened this shift: Pt. asleep at start of shift. Pt. took medications but with much encouragement. Pt. hesitates when taking meds and eating. Pt. did not eat breakfast. 1:1 done at bedside. Pt. is non-verbal. Pt. very lethargic at breakfast time, holding food in his mouth and not swallowing, pt. intructed to spit out food which he did. RN received order for chest X-ray and CBC to r/o infectious proccess. Pt. WBC within normal limits and CXR negative. Pt. did eat lunch when fed by staff. Pt. was incontinent of urine in AM and was changed. Pt.'s CBG wa 121AM, 265 noon, 186 PM. S/I, H/I: Unable to assess A/VH: Unable to assess Sleep: Pt. napped x2 ADL's: Needs assistance and prompts. Pt is able to stand up from the toilet w/prompting. Group attendance: Yes Were meds taken: Medication compliant Any med S/E: None reported or observed. Mental Status Exam Appearance: Disheveled, wearing green unit scrubs, Eye contact: Minimal Behavior: Cooperative, delayed Speech: Non verbal this shift Mood: Unable to assess Affect: Blunted Thought process: Unable to assess Thought Content: Unable to assess Cognition: A&O to self Insight: Unable to assess Judgment: Unable to assess Interventions PRN's used: None Therapeutic interventions: 1:1 therapeutic assessment, medication administration/education/monitoring, provided clear/simple instructions, toileting q2h, Q15 min safety checks. Restraints/seclusion/emergency medication: N/A Justification of Continued Inpatient Treatment: Pt is gravely disabled and needs therapeutic support and medication management to provide stabilization and encourage independence.
[2019-01-07 20:00] VITALS: BP 165/79
[2019-01-07] MEDS: Melatonin 3mg tablet PO SCH (21:04)
[2019-01-07] MEDS: aripiprazole 5mg tablet PO SCH (21:05)
--- NOTE | 2019-01-07 21:10 | NUR ---
Pt HS blood sugar was 43, pt showed no s/s of diaphoresis, confusion, or shakes; following hypoglycemic protocol pt was administered oral dextrose solution x2 bottles, with effect. BG was retaken 15 mins later 103; 15 mins after 153. Called Dr. Gordon to get assistance on how much Lantus to administer. Per doctor administer scheduled 18 units of Lantus and decreases pt's diabetic protocol level from 6 to 5. Will continue to monitor and endorse to next shift. Pt sleeping comfortably.
[2019-01-07] MEDS: insulin glargine (Lantus) pen - multi-dose SQ SCH (22:16)
--- NOTE | 2019-01-08 02:35 | NUR ---
NURSING PROGRESS REPORT: Legal hold: Voluntary Client on voluntary status for GD. Report received from FRANK Schaeffer with use of SBAR. Why are they here: Pt. admitted for a mental health evaluation. His staff of the [facility] residence he lives at in [place] stated Mr. Turpin has been refusing to care for himself for the past week. According to staff, Mr. Turpin has not been eating or drinking, and has not been taking his medications. Per staff, Mr. Turpin has schizophrenia and has gone into catatonic states in the past associated with his diabetes. Mr. Turpin was seen at [facility] prior to this admission and prescribed antibiotics for possible pneumonia. Assessment What has happened this shift: Pt sitting by himself in group, no acute distress noted. Pt is toileted at 1930 as per q2h. Pt is a 1PA. Pt is non verbal, but responds to commands. Pt ate his HS snack when fed by this sign writer letterer or painter. Pt still has a little respiratory congestion, but lungs are clear. Pt's HS BG was 43, pt showed no s/s of diaphoresis, confusion, shakes. Pt was administered oral dextrose solution per hypoglycemic protocol with effect. BG retaken in 15 mins registered at 103; then 153. A phone call was placed to hospitalist Dr. Gordon regarding admin of Lantus. Per doctor Gordon, Lantus is to be administered at the scheduled 18 units and pt is to be decreased from level 5 protocol to level 6. Will endorse to next shift. Pt is tolieted at 0030 and will again at 0500 as per bowel plan. Pt is being monitored throughout shift with no distress or s/s of hypoglycemia. S/I, H/I: Unable to assess A/VH: Unable to assess Sleep: See sleep assessment notation. ADL's: Needs assistance and prompts. Pt is able to stand up from the toilet w/prompting. Pt is a feeder. Group attendance: steward/stewardess third, no group Were meds taken: Medication compliant Any med S/E: None reported or observed. Mental Status Exam Appearance: Disheveled, wearing green unit scrubs, Eye contact: Minimal Behavior: Cooperative, delayed Speech: Non verbal this shift Mood: Unable to assess Affect: Catatonic Thought process: Unable to assess Thought Content: Unable to assess Cognition: A&O to self Insight: Unable to assess Judgment: Unable to assess Interventions PRN's used: None Therapeutic interventions: 1:1 therapeutic assessment, medication administration/education/monitoring, provided clear/simple instructions, toileting q2h, Q15 min safety checks. Restraints/seclusion/emergency medication: N/A Justification of Continued Inpatient Treatment: Pt is gravely disabled and needs therapeutic support and medication management to provide stabilization and encourage independence. Addendum: 01/08/19 at 0524 by Julia Ramos RN Woke pt up and ambulated to the toilet, pt's brief was dry. Encouraged fluids at encounter. Pt scrunched his face when swallowing, not sure if pt's throat is sore. Pt did take several sips from straw. Pt's affect was flat with some brightening. There was no brightening at beginning of shift. Pt also appeared to be angry, furrowed brows when asked questions. Pt is hard to assess due to being non verbal.
[2019-01-08] MEDS: dextrose ORAL solution 15 GM/59 ML bottle PO PRN ×2 (02:48→02:50)
[2019-01-08] MEDS: LORazepam 0.5 MG tablet PO SCH ×3 (07:32→21:01)
[2019-01-08] MEDS: FLUoxetine 20mg capsule PO SCH (07:33)
[2019-01-08] MEDS: pantoprazole 40mg Tablet.DR PO SCH (07:33)
[2019-01-08] MEDS: tamsulosin 0.4mg capsule PO SCH (07:34)
[2019-01-08] MEDS: cyanocobalamin 500mcg tablet PO SCH (07:34)
[2019-01-08] MEDS: multivitamins, therapeutics tablet PO SCH (07:34)
[2019-01-08] MEDS: magnesium oxide 400mg tablet PO SCH (07:34)
[2019-01-08] MEDS: lactobacillus rhamnosus 10,000 MMU CELLS/CAPSULE PO SCH ×2 (07:35→21:01)
[2019-01-08] MEDS: aspirin 81mg tablet.DR PO SCH (07:35)
[2019-01-08 07:52] VITALS: BP 157/70
[2019-01-08] MEDS: divalproex sod 250mg ER (24-hour) tablet PO SCH (08:08)
[2019-01-08] MEDS: insulin Lispro (HumaLOG) vial - multi-dose SQ SCH ×2 (09:17→15:01)
--- NOTE | 2019-01-08 17:45 | NUR ---
NURSING PROGRESS REPORT: Legal hold: Voluntary Client on voluntary status for GD. Report received from FRANK Dumont with use of SBAR. Why are they here: Pt. admitted for a mental health evaluation. His staff of the [facility] residence he lives at in [place] stated Mr. Turpin has been refusing to care for himself for the past week. According to staff, Mr. Turpin has not been eating or drinking, and has not been taking his medications. Per staff, Mr. Turpin has schizophrenia and has gone into catatonic states in the past associated with his diabetes. Mr. Turpin was seen at [facility] prior to this admission and prescribed antibiotics for possible pneumonia. Assessment What has happened this shift: Pt. asleep at start of [facility]. Pt. took all medications and ate all meals in the community room. Pt. fed himself and took medications with much encouragement from staff. Pt. refused to eat lunch and had to be bed by staff. Pt. needs encouragement for drinking PO fluids. Pt constricts his face when swallowing, pt. does not respond when asked if his throat is sore. Pt's affect is blunted with some frowning, Pt. appeared to be angry, furrowed brows when asked questions. Pt is hard to assess due to being non verbal. 1:1 assessment done at bedside. Pt. is non-verbal, lethargic, and selectively responds to staff promptings. Pt. is incontinent and needs assistance for toileting. Pt. attended groups. Pt.'s CBG this AM was 107, noon was 181, and 1700 was 163. Pt. showered today S/I, H/I: Unable to assess A/VH: Unable to assess Sleep: Pt. napped x1 today. ADL's: Needs assistance and prompts. Pt is able to stand up from the toilet w/prompting. Pt fed himself at breakfast, but needed to be fed at lunch. Group attendance: Yes Were meds taken: Medication compliant Any med S/E: None reported or observed. Mental Status Exam Appearance: Disheveled, wearing green unit scrubs, Eye contact: Minimal Behavior: Cooperative, delayed Speech: Non verbal this shift Mood: Depressed/angry Affect: Blunted with some frowning Thought process: Unable to assess Thought Content: Unable to assess Cognition: A&O to self and place Insight: Unable to assess Judgment: Unable to assess Interventions PRN's used: None Therapeutic interventions: 1:1 therapeutic assessment, medication administration/education/monitoring, provided clear/simple instructions, toileting q2h, Q15 min safety checks. Restraints/seclusion/emergency medication: N/A Justification of Continued Inpatient Treatment: Pt is gravely disabled and needs therapeutic support and medication management to provide stabilization and encourage independence.
[2019-01-08] MEDS: Melatonin 3mg tablet PO SCH (21:01)
[2019-01-08] MEDS: aripiprazole 5mg tablet PO SCH (21:01)
[2019-01-08] MEDS: insulin glargine (Lantus) pen - multi-dose SQ SCH (21:43)
--- NOTE | 2019-01-09 04:47 | NUR ---
NURSING PROGRESS REPORT: Legal hold: Voluntary Client on voluntary status for GD. Report received from FRANK Orellana with use of SBAR. Why are they here: Pt. admitted for a mental health evaluation. His staff of the [facility] residence he lives at in [place] stated Mr. Turpin has been refusing to care for himself for the past week. According to staff, Mr. Turpin has not been eating or drinking, and has not been taking his medications. Per staff, Mr. Turpin has schizophrenia and has gone into catatonic states in the past associated with his diabetes. Mr. Turpin was seen at [facility] prior to this admission and prescribed antibiotics for possible pneumonia. Assessment What has happened this shift: Pt was sitting in group room at shift change. Pt continues to be non verbal, but affect is more bright. Pt also appeared to be angry or disgruntled. When this customs entry writer tried to assist in feeding, it appeared that pt was pushing this customs entry writer's hand away and frowning. This same gesture happened during the time pt was being assisted to the toilet. Pt's sister and her came to visit, pt appeared to know they were there and allowed sister to assist in feeding. Pt eye contact is improving. Pt also assisted this customs entry writer in helping pull up his pants after toileting. Pt was compliant with meds and cooperative with 1:1 assessment. Pt's HS blood sugar was 234. Pt was also started on Ritalin 10mg daily. Pt's insulin administration was changed. Diabetic protocol was discontinued; "For diabetes type 2 - long-acting insulin decreased to 15 units subcutaneous before bedtime, for short-acting insulin patient needs 3-5 units of subcutaneous insulin 20 minutes before meals. Continue to check fasting blood sugar level which is expected to be between 80 and 120 and nonfasting blood sugar level which is expected to be between 150- 200." S/I, H/I: Unable to assess A/VH: Unable to assess Sleep: See sleep assessment notation. ADL's: Needs assistance and prompts. Pt is able to stand up from the toilet w/prompting. Pt started feeding himself dinner then needed assistance. Group attendance: hourly shift, no group Were meds taken: Medication compliant Any med S/E: None reported or observed. Mental Status Exam Appearance: Disheveled, wearing green unit scrubs, Eye contact: Minimal Behavior: Cooperative, delayed Speech: Non verbal Mood: Appeared to be angry Affect: Flat with some frowning Thought process: Unable to assess Thought Content: Unable to assess Cognition: A&O to self Insight: Unable to assess Judgment: Unable to assess Interventions PRN's used: None Therapeutic interventions: 1:1 therapeutic assessment, medication, encourage independent performance of ADL's, provide clear,simple instructions, administration/education/monitoring, provided clear/simple instructions, toileting q2h, followed all fall precautions; Q15 min safety checks. Restraints/seclusion/emergency medication: N/A Justification of Continued Inpatient Treatment: Pt is gravely disabled and needs therapeutic support and medication management to provide stabilization and encourage independence.
[2019-01-09] MEDS ORDERED: insulin regular, human 10 units/0.1 ml syringe SQ SCH ×2 (07:30→12:30)
[2019-01-09 08:00] VITALS: BP 171/68
[2019-01-09] MEDS: tamsulosin 0.4mg capsule PO SCH (08:33)
[2019-01-09] MEDS: divalproex sod 250mg ER (24-hour) tablet PO SCH (08:34)
[2019-01-09] MEDS: cyanocobalamin 500mcg tablet PO SCH (08:34)
[2019-01-09] MEDS: multivitamins, therapeutics tablet PO SCH (08:35)
[2019-01-09] MEDS: aspirin 81mg tablet.DR PO SCH (08:35)
[2019-01-09] MEDS: magnesium oxide 400mg tablet PO SCH (08:35)
[2019-01-09] MEDS: FLUoxetine 20mg capsule PO SCH (08:35)
[2019-01-09] MEDS: methylphenidate 5mg tablet PO SCH (08:36)
[2019-01-09] MEDS: pantoprazole 40mg Tablet.DR PO SCH (08:36)
[2019-01-09] MEDS: lactobacillus rhamnosus 10,000 MMU CELLS/CAPSULE PO SCH ×2 (08:36→20:36)
[2019-01-09] MEDS: LORazepam 0.5 MG tablet PO SCH ×3 (08:37→20:36)
[2019-01-09] MEDS ORDERED: insulin regular, human vial - multi-dose SQ SCH (12:58)
[2019-01-09] MEDS ORDERED: insulin regular, human vial - multi-dose SQ ONE (13:00)
--- NOTE | 2019-01-09 17:30 | NUR ---
NURSING PROGRESS REPORT: Legal hold: Voluntary Client on voluntary status for GD. Report received from Renetta Dyer RN with use of SBAR. Why are they here: Pt. admitted for a mental health evaluation. His staff of the [facility] residence he lives at in [place] stated Mr. Turpin has been refusing to care for himself for the past week. According to staff, Mr. Turpin has not been eating or drinking, and has not been taking his medications. Per staff, Mr. Turpin has schizophrenia and has gone into catatonic states in the past associated with his diabetes. Mr. Turpin was seen at [facility] prior to this admission and prescribed antibiotics for possible pneumonia. Assessment What has happened this shift: Pt. asleep at start of shift. Pt. woken up for CBG check. Pt. alert and oriented to name but patient is non-verbal so it is difficult to assess pt.'s mental status. Pt. took all medications and ate all meals in community room. Pt. needs assistance feeding. Pt. shows OCD-like behaviors, will hold toast in hand, bring it up and put it in his mouth but will not bite and put it down and repeat this multiple times. Pt. does not bite down fully unless staff feeds pt. Pt. grimaces often when drinking. Pt.'s dentures removed and cleaned. RN assessed pt.'s mouth for sores, no sores or signs of inflammation seen. Pt.'s sister visited pt. and said that pt. becomes significantly depressed about once a year, even to the point where pt. will not walk any longer. Sister informed RN that it is important to tell pt. what is going on when you are doing it. Sister believes episode began when pt. saw his frail older sister. Pt.'s CBG this AM was 133. Noon was 369, and 1700 was 364. Pt.'s Humulin R was increased to 5 units 20 minutes before each meal by hospitalist. Pt. had no bouts of incontinence today. Pt. ambulated x5 today. S/I, H/I: Unable to assess A/VH: Unable to assess Sleep: Pt. napped x1 today. ADL's: Needs assistance and prompts. Pt is able to stand up from the toilet w/prompting. Pt. requires staff to feed and give him po fluids. Group attendance: Yes Were meds taken: Medication compliant Any med S/E: None reported or observed. Mental Status Exam Appearance: Disheveled, wearing green unit scrubs, Eye contact: Minimal Behavior: Cooperative, delayed Speech: Non verbal Mood: Appears disthymic. Affect: Flat with some frowning Thought process: Unable to assess Thought Content: Unable to assess Cognition: A&O to self Insight: Unable to assess Judgment: Unable to assess Interventions PRN's used: None Therapeutic interventions: 1:1 therapeutic assessment, medication, encourage independent performance of ADL's, provide clear,simple instructions, administration/education/monitoring, provided clear/simple instructions, toileting q2h, followed all fall precautions; Q15 min safety checks. Restraints/seclusion/emergency medication: N/A Justification of Continued Inpatient Treatment: Pt is gravely disabled and needs therapeutic support and medication management to provide stabilization and encourage independence.
[2019-01-09] MEDS: insulin regular, human vial - multi-dose SQ SCH (18:07)
[2019-01-09 19:00] VITALS: BP 136/79
[2019-01-09] MEDS: aripiprazole 5mg tablet PO SCH (20:35)
[2019-01-09] MEDS: Melatonin 3mg tablet PO SCH (20:36)
[2019-01-09] MEDS: insulin glargine (Lantus) pen - multi-dose SQ SCH (20:49)
--- NOTE | 2019-01-10 00:22 | NUR ---
NURSING PROGRESS REPORT: Legal hold: Voluntary Client on voluntary status for GD. Report received from ANUJ Orellana with use of SBAR. Why are they here: Pt. admitted for a mental health evaluation. His staff of the [facility] residence he lives at in [place] stated Mr. Turpin has been refusing to care for himself for the past week. According to staff, Mr. Turpin has not been eating or drinking, and has not been taking his medications. Per staff, Mr. Turpin has schizophrenia and has gone into catatonic states in the past associated with his diabetes. Mr. Turpin was seen at [facility] prior to this admission and prescribed antibiotics for possible pneumonia. Assessment What has happened this shift: Pt. Up in group room at start of shift. Non verbal, does not Pt movements slow and halting. Pt does not feed self needs to be fed. Sister and [id number] here to visit pt non responsive to them sat with eyes closed most of the time. Visitors left after a short period of time. Pt. alert and oriented to name but patient is non-verbal so it is difficult to assess pt.'s mental status. Pt. took all medications and ate all meals in community room. Pt. needs assistance feeding. Pt Ambulated with FWW and stand by assist from group room to his room. To bathroom pt had already been incontinent of urine. Sat on toilet , benjamin-care done, Clothes and linen change. pt follows directions but very slowly. Pt went to bed and to sleep almost immediately. At midnight pt taken to toilet had not been incontinent and urinated on toilet. S/I, H/I: Unable to assess A/VH: Unable to assess Sleep: Asleep at this time. ADL's: Needs assistance and prompts. Pt. requires staff to feed and give him po fluids. Group attendance: Yes Were meds taken: Medication compliant Any med S/E: None reported or observed. Mental Status Exam Appearance: Disheveled, wearing green unit scrubs, Eye contact: Minimal Behavior: Cooperative, delayed Speech: Non verbal Mood: Appears disthymic. Affect: Flat with some frowning Thought process: Unable to assess Thought Content: Unable to assess Cognition: A&O to self Insight: Unable to assess Judgment: Unable to assess Interventions PRN's used: None Therapeutic interventions: 1:1 therapeutic assessment, medication, encourage independent performance of ADL's, provide clear,simple instructions, administration/education/monitoring, provided clear/simple instructions, toileting q2h, followed all fall precautions; Q15 min safety checks. Restraints/seclusion/emergency medication: N/A Justification of Continued Inpatient Treatment: Pt is gravely disabled and needs therapeutic support and medication management to provide stabilization and encourage independence.
[2019-01-10] MEDS: insulin regular, human vial - multi-dose SQ SCH ×3 (07:00→17:36)
[2019-01-10] MEDS ORDERED: insulin regular, human 10 units/0.1 ml syringe SQ SCH (07:30)
[2019-01-10 07:55] VITALS: BP 166/70
[2019-01-10] MEDS: LORazepam 0.5 MG tablet PO SCH ×3 (08:00→21:08)
[2019-01-10] MEDS: pregabalin 75mg capsule PO PRN (08:48)
[2019-01-10] MEDS: pantoprazole 40mg Tablet.DR PO SCH (08:48)
[2019-01-10] MEDS: cyanocobalamin 500mcg tablet PO SCH (08:49)
[2019-01-10] MEDS: methylphenidate 5mg tablet PO SCH (08:49)
[2019-01-10] MEDS: FLUoxetine 20mg capsule PO SCH (08:49)
[2019-01-10] MEDS: magnesium oxide 400mg tablet PO SCH (08:49)
[2019-01-10] MEDS: aspirin 81mg tablet.DR PO SCH (08:49)
[2019-01-10] MEDS: divalproex sod 250mg ER (24-hour) tablet PO SCH (08:49)
[2019-01-10] MEDS: tamsulosin 0.4mg capsule PO SCH (08:50)
[2019-01-10] MEDS: lactobacillus rhamnosus 10,000 MMU CELLS/CAPSULE PO SCH ×2 (08:50→21:07)
[2019-01-10] MEDS: multivitamins, therapeutics tablet PO SCH (08:59)
--- NOTE | 2019-01-10 17:46 | NUR ---
NURSING PROGRESS REPORT: Legal hold: Voluntary Client on voluntary status for GD. Report received from Renetta Dyer RN with use of SBAR. Why are they here: Pt. admitted for a mental health evaluation. His staff of the [facility] residence he lives at in [place] stated Mr. Turpin has been refusing to care for himself for the past week. According to staff, Mr. Turpin has not been eating or drinking, and has not been taking his medications. Per staff, Mr. Turpin has schizophrenia and has gone into catatonic states in the past associated with his diabetes. Mr. Turpin was seen at [facility] prior to this admission and prescribed antibiotics for possible pneumonia. Assessment What has happened this shift: Pt. asleep at start of shift. Pt. woken up for HBG check. Pt. presents as somnolent at this time. Mental status has changed since this nurse last cared for patient last Friday. He had difficulty following direction and required two staff to hold him up and escort him to the bathroom. Did not void at this time. Escorted to community room for breakfast. Ate 75% of his meal when fed by staff. Pt. took all medications as ordered. Sat in community room until noon. Visited with sister and brother in law at 10 AM. Sister reported "my brother isn't himself today. Did any of his meds change?" States their family is very sensitive to medication changes and she hopes this isn't happening to her brother. Patient has been placed on Ritalin recently. Dr. Tyler consulted about this medication, along with Arsen Oconnell. Decision made to discontinue the Ritalin. Brought back to room at noon. Patient immediately fell asleep. BS = 386 at noon and 219 at 1546 and 151 at 1728. Pt.'s Humulin R was increased to 5 units 20 minutes before each meal by hospitalist. Pt. had no bouts of incontinence today. S/I, H/I: Unable to assess A/VH: Unable to assess Sleep: Pt. napped x1 today. ADL's: Needs assistance and prompts. Pt is able to stand up from the toilet w/prompting. Pt. requires staff to feed and give him po fluids. Group attendance: Yes Were meds taken: Medication compliant Any med S/E: None reported or observed. Mental Status Exam Appearance: Disheveled, wearing green unit scrubs, Eye contact: Minimal Behavior: Cooperative, delayed Speech: Non verbal Mood: Appears disthymic. Affect: Flat with some frowning Thought process: Unable to assess Thought Content: Unable to assess Cognition: A&O to self Insight: Unable to assess Judgment: Unable to assess Interventions PRN's used: None Therapeutic interventions: 1:1 therapeutic assessment, medication, encourage independent performance of ADL's, provide clear,simple instructions, administration/education/monitoring, provided clear/simple instructions, toileting q2h, followed all fall precautions; Q15 min safety checks. Restraints/seclusion/emergency medication: N/A Justification of Continued Inpatient Treatment: Pt is gravely disabled and needs therapeutic support and medication management to provide stabilization and encourage independence.
[2019-01-10 19:57] VITALS: BP 144/71
[2019-01-10] MEDS: aripiprazole 5mg tablet PO SCH (21:08)
[2019-01-10] MEDS: Melatonin 3mg tablet PO SCH (21:09)
[2019-01-10] MEDS: insulin glargine (Lantus) pen - multi-dose SQ SCH (21:22)
--- NOTE | 2019-01-11 00:47 | NUR ---
NURSING PROGRESS REPORT: Legal hold: Voluntary Client on voluntary status for GD. Report received from ANUJ Orellana with use of SBAR. Why are they here: Pt. admitted for a mental health evaluation. His staff of the [facility] residence he lives at in [place] stated Mr. Turpin has been refusing to care for himself for the past week. According to staff, Mr. Turpin has not been eating or drinking, and has not been taking his medications. Per staff, Mr. Turpin has schizophrenia and has gone into catatonic states in the past associated with his diabetes. Mr. Turpin was seen at [facility] prior to this admission and prescribed antibiotics for possible pneumonia. Assessment What has happened this shift: Pt. Up in group room at start of shift. Pt fed dinner. Non verbal, Pt movements slow. Two sisters visited this shift. They felt Pt was more responsive to them than prior shift. Pt. alert and oriented to name but patient is non-verbal so it is difficult to assess pt.'s mental status. Pt will shake head yes slowly in response to questions and did smile a few times this shift. Pt. took all medications and ate all meals in community room. Pt Ambulated with FWW and stand by assist from group room to his room. To bathroom pt continent of urine. Pt went to bed and to sleep almost immediately. S/I, H/I: Unable to assess A/VH: Unable to assess Sleep: Asleep at this time. ADL's: Needs assistance and prompts. Pt. requires staff to feed and give him po fluids. Group attendance: Yes Were meds taken: Medication compliant Any med S/E: None reported or observed. Mental Status Exam Appearance: Disheveled, wearing green unit scrubs, Eye contact: Minimal Behavior: Cooperative, delayed Speech: Non verbal Mood: Appears dysthymic. Affect: Flat with some smiling Thought process: Unable to assess Thought Content: Unable to assess Cognition: A&O to self Insight: Unable to assess Judgment: Unable to assess Interventions PRN's used: None Therapeutic interventions: 1:1 therapeutic assessment, medication, encourage independent performance of ADL's, provide clear,simple instructions, administration/education/monitoring, provided clear/simple instructions, toileting q2h, followed all fall precautions; Q15 min safety checks. Restraints/seclusion/emergency medication: N/A Justification of Continued Inpatient Treatment: Pt is gravely disabled and needs therapeutic support and medication management to provide stabilization and encourage independence.
[2019-01-11] MEDS: insulin regular, human vial - multi-dose SQ SCH ×3 (07:56→17:30)
[2019-01-11] MEDS: tamsulosin 0.4mg capsule PO SCH (07:59)
[2019-01-11] MEDS: multivitamins, therapeutics tablet PO SCH (07:59)
[2019-01-11] MEDS: aspirin 81mg tablet.DR PO SCH (07:59)
[2019-01-11] MEDS: LORazepam 0.5 MG tablet PO SCH ×3 (07:59→20:38)
[2019-01-11] MEDS: FLUoxetine 20mg capsule PO SCH (07:59)
[2019-01-11] MEDS: magnesium oxide 400mg tablet PO SCH (07:59)
[2019-01-11 08:00] VITALS: BP 163/73
[2019-01-11] MEDS: pregabalin 75mg capsule PO PRN (08:00)
[2019-01-11] MEDS: cyanocobalamin 500mcg tablet PO SCH (08:00)
[2019-01-11] MEDS: divalproex sod 250mg ER (24-hour) tablet PO SCH (08:00)
[2019-01-11] MEDS: pantoprazole 40mg Tablet.DR PO SCH (08:00)
[2019-01-11] MEDS: lactobacillus rhamnosus 10,000 MMU CELLS/CAPSULE PO SCH ×2 (08:05→20:37)
--- NOTE | 2019-01-11 11:33 | NUR ---
Reassessment: patient eating well with assistance, eating 75-100% PO with help. Having regular BMs. Will continue to follow. Recommendations: 1) [facility]op all CHO controlled diet 2) DM education prior to discharge IF appropriate 3) Routine bowel care 4) Weekly wt Addendum: 01/11/19 at [address] Amended: Links added.
--- NOTE | 2019-01-11 18:10 | NUR ---
NURSING PROGRESS REPORT: Legal hold: Voluntary Client on voluntary status for GD. Report received from FRANK Brand with use of SBAR. Why are they here: Pt. admitted for a mental health evaluation. His staff of the [facility] residence he lives at in [place] stated Mr. Turpin has been refusing to care for himself for the past week. According to staff, Mr. Turpin has not been eating or drinking, and has not been taking his medications. Per staff, Mr. Turpin has schizophrenia and has gone into catatonic states in the past associated with his diabetes. Mr. Turpin was seen at [facility] prior to this admission and prescribed antibiotics for possible pneumonia. Assessment What has happened this shift: Pt. asleep at start of shift. Pt. woken up for HBG check. Pt. sleepy but more alert than yesterday. Escorted to community room for breakfast. Ate 75% of his meal when fed by staff. Pt. took all medications as ordered. Two sisters here to visit at 10 AM. Patient smiled on occasion while sisters talking with him. Primarily sat quietly by his twin sister with his eyes closed. Sisters report that patient "goes into this moods about once a year otherwise he takes total care of himself." Sisters report patient has both cheeks filled with apple crisp last night. They believe he is having difficulty swallowing solid food. Diet changed to mechanical soft. Humulin R 5 units administered 20 minutes before each meal per order. Pt. had no episodes of incontinence today. S/I, H/I: Unable to assess A/VH: Unable to assess Sleep: Pt. napped x1 today. ADL's: Needs assistance and prompts. Pt is able to stand up from the toilet w/prompting. Pt. requires staff to feed and give him po fluids. Group attendance: Yes Were meds taken: Medication compliant Any med S/E: None reported or observed. Mental Status Exam Appearance: Disheveled, wearing green unit scrubs, Eye contact: Minimal Behavior: Cooperative, delayed Speech: Non verbal Mood: Appears dysthymic. Affect: Flat with some frowning Thought process: Unable to assess Thought Content: Unable to assess Cognition: A&O to self Insight: Unable to assess Judgment: Unable to assess Interventions PRN's used: None Therapeutic interventions: 1:1 therapeutic assessment, medication, encourage independent performance of ADL's, provide clear,simple instructions, administration/education/monitoring, provided clear/simple instructions, toileting q2h, followed all fall precautions; Q15 min safety checks. Restraints/seclusion/emergency medication: N/A Justification of Continued Inpatient Treatment: Pt is gravely disabled and needs therapeutic support and medication management to provide stabilization and encourage independence.
[2019-01-11 20:00] VITALS: BP 144/71
[2019-01-11] MEDS: Melatonin 3mg tablet PO SCH (20:37)
[2019-01-11] MEDS: aripiprazole 5mg tablet PO SCH (20:37)
[2019-01-11] MEDS: insulin glargine (Lantus) pen - multi-dose SQ SCH (20:50)
--- NOTE | 2019-01-12 00:09 | NUR ---
NURSING PROGRESS REPORT: Legal hold: Voluntary Client on voluntary status for GD. Report received from FRANK Sawyer with use of SBAR. Why are they here: Pt. admitted for a mental health evaluation. His staff of the [facility] residence he lives at in [place] stated Mr. Turpin has been refusing to care for himself for the past week. According to staff, Mr. Turpin has not been eating or drinking, and has not been taking his medications. Per staff, Mr. Turpin has schizophrenia and has gone into catatonic states in the past associated with his diabetes. Mr. Turpin was seen at [facility] prior to this admission and prescribed antibiotics for possible pneumonia. Assessment What has happened this shift: Pt. Sitting in group room at start of shift. Non verbal will nod slightly at times to answer questions other times no reaction at all. Sister here for visiting hour. Fed pt salad. Pt chewed and swallowed without difficulty. Pt often sits with eyes closed but will open them with encouragement. Pt follows directions. Able to ambulate to his room at far end of unit with FWW and stand-by assist. Pt has had no episodes of incontinence. Assisted to toilet by staff. S/I, H/I: Unable to assess A/VH: Unable to assess Sleep: pt asleep at this time. ADL's: Needs assistance and prompts. Pt is able to stand up from the toilet w/prompting. Pt. requires staff to feed and give him po fluids. Group attendance: Yes Were meds taken: Medication compliant Any med S/E: None reported or observed. Mental Status Exam Appearance: Disheveled, wearing green unit scrubs, Eye contact: Minimal Behavior: Cooperative, delayed Speech: Non verbal Mood: Appears dysthymic. Affect: Flat with some frowning Thought process: Unable to assess Thought Content: Unable to assess Cognition: A&O to self Insight: Unable to assess Judgment: Unable to assess Interventions PRN's used: None Therapeutic interventions: 1:1 therapeutic assessment, medication, encourage independent performance of ADL's, provide clear,simple instructions, administration/education/monitoring, provided clear/simple instructions, toileting q2h, followed all fall precautions; Q15 min safety checks. Restraints/seclusion/emergency medication: N/A Justification of Continued Inpatient Treatment: Pt is gravely disabled and needs therapeutic support and medication management to provide stabilization and encourage independence.
[2019-01-12] MEDS: insulin regular, human vial - multi-dose SQ SCH ×3 (07:00→17:20)
[2019-01-12 08:00] VITALS: BP 140/97
[2019-01-12] MEDS: tamsulosin 0.4mg capsule PO SCH (08:45)
[2019-01-12] MEDS: multivitamins, therapeutics tablet PO SCH (08:45)
[2019-01-12] MEDS: cyanocobalamin 500mcg tablet PO SCH (08:46)
[2019-01-12] MEDS: lactobacillus rhamnosus 10,000 MMU CELLS/CAPSULE PO SCH ×2 (08:46→20:42)
[2019-01-12] MEDS: FLUoxetine 20mg capsule PO SCH (08:46)
[2019-01-12] MEDS: magnesium oxide 400mg tablet PO SCH (08:46)
[2019-01-12] MEDS: LORazepam 0.5 MG tablet PO SCH ×3 (08:46→20:46)
[2019-01-12] MEDS: pantoprazole 40mg Tablet.DR PO SCH (08:46)
[2019-01-12] MEDS: aspirin 81mg tablet.DR PO SCH (08:46)
[2019-01-12] MEDS: divalproex sod 250mg ER (24-hour) tablet PO SCH (08:46)
--- NOTE | 2019-01-12 16:03 | NUR ---
NURSING PROGRESS REPORT: Legal hold: Voluntary Client on voluntary status for GD. Report received from FRANK Smalls with use of SBAR. Why are they here: Pt. admitted for a mental health evaluation. His staff of the [facility] residence he lives at in [place] stated Mr. Turpin has been refusing to care for himself for the past week. According to staff, Mr. Turpin has not been eating or drinking, and has not been taking his medications. Per staff, Mr. Turpin has schizophrenia and has gone into catatonic states in the past associated with his diabetes. Mr. Turpin was seen at [facility] prior to this admission and prescribed antibiotics for possible pneumonia. Assessment What has happened this shift: Pt was up for breakfast, he was assisted by staff and ate 100%. For lunch, he ate 75% being fed by staff. Pt is tolerating [facility] soft diet. Pt has a delayed swallow, needs sips of liquids between bites. Pt was able to take his medications whole 2 to 3 at a time in applesauce at breakfast. At lunch took 2 tablets in a spoonful of Jello without difficulty. Pt does have a moist nonproductive cough though lungs clear/diminished to auscultation. Pt is incontinent of urine, he needs prompted routine toileting. He is able to ambulate and toilet with prompts/assist of one. Pt is slow moving and nonverbal, he is able to follow simple directions, opens his eyes and looks at this RN when spoken to him but no verbal response. FSBG AC bkfst was 121, AC lunch was 332, staff reported he did not eat a snack. Pt continues on routine Humulin 5 units before meals. S/I, H/I: Unable to assess, no unsafe behaviors noted A/VH: Pt is nonverbal, no indications of response to internal stimuli Sleep: Pt slept7.75 hours per noc shift report. ADL's: Pt currently not able to feed himself, he needs fed and given fluids, he is incontinent of urine and needs prompting/ routine toileting, he needs assist of one for ambulation, toileting, meals, and bathing. Pt is able to independently reposition himself in bed. Group attendance: Yes, passive participant Were meds taken: Yes Any med S/E: None noted Mental Status Exam Appearance: Slow moving, nonverbal elderly gentleman with cropped white hair dressed in green hospital scrubs Eye contact: Fair Behavior: Slow moving, calm, cooperative Speech: Non verbal Mood: Unable to assess Affect: Flat Thought process: Unable to assess Thought Content: Unable to assess Cognition: Unable to assess though pt responds to his name, seems to be at least A/O X 1 Insight: Unable to assess Judgment: Unable to assess Interventions PRN's used: None Therapeutic interventions: 1:1 assessment, task orientation; simple 1 to 2 step directions, swallow precautions, fall precautions, one person assist with ambulation, toileting, bathing, and feeding, medication administration/monitoring/education, frequent toileting, Q15 min safety checks. Restraints/seclusion/emergency medication: N/A Justification of Continued Inpatient Treatment: Pt is gravely disabled and needs therapeutic support and medication management to provide stabilization and encourage independence.
[2019-01-12] MEDS: aripiprazole 5mg tablet PO SCH (20:42)
[2019-01-12] MEDS: Melatonin 3mg tablet PO SCH (20:42)
[2019-01-12 20:54] VITALS: BP 141/74
[2019-01-12] MEDS: insulin glargine (Lantus) pen - multi-dose SQ SCH (21:04)
--- NOTE | 2019-01-12 22:11 | NUR ---
NURSING PROGRESS REPORT: Legal hold: Voluntary Client on voluntary status for GD. Report received from FRANK Orellana with use of SBAR. Why are they here: Pt. admitted for a mental health evaluation. His staff of the [facility] residence he lives at in [place] stated Mr. Turpin has been refusing to care for himself for the past week. According to staff, Mr. Turpin has not been eating or drinking, and has not been taking his medications. Per staff, Mr. Turpin has schizophrenia and has gone into catatonic states in the past associated with his diabetes. Mr. Turpin was seen at [facility] prior to this admission and prescribed antibiotics for possible pneumonia. Assessment What has happened this shift: Pt in group room at start of shift. Movements slow and halting. Follows simple directions like take a step or cough. Very little if any spontaneous movements. Took medications in applesauce without any difficulty. Pt is non verbal. continent of urine if toileted S/I, H/I: Unable to assess, no unsafe behaviors noted A/VH: Pt is nonverbal, no indications of response to internal stimuli Sleep: Pt asleep at this time ADL's: Pt currently not able to feed himself, he needs fed and given fluids, he is incontinent of urine and needs prompting/ routine toileting, he needs assist of one for ambulation, toileting, meals, and bathing. Pt is able to independently reposition himself in bed. Group attendance: Yes, passive participant Were meds taken: Yes Any med S/E: None noted Mental Status Exam Appearance: Slow moving, nonverbal elderly gentleman with cropped white hair dressed in green hospital scrubs and attractive sweater Eye contact: Fair Behavior: Slow moving, calm, cooperative Speech: Non verbal Mood: Unable to assess Affect: Flat Thought process: Unable to assess Thought Content: Unable to assess Cognition: Unable to assess though pt responds to his name, seems to be at least A/O X 1 Insight: Unable to assess Judgment: Unable to assess Interventions PRN's used: None Therapeutic interventions: 1:1 assessment, task orientation; simple 1 to 2 step directions, swallow precautions, fall precautions, one person assist with ambulation, toileting, bathing, and feeding, medication administration/monitoring/education, frequent toileting, Q15 min safety checks. Restraints/seclusion/emergency medication: N/A Justification of Continued Inpatient Treatment: Pt is gravely disabled and needs therapeutic support and medication management to provide stabilization and encourage independence.
[2019-01-13] MEDS: insulin regular, human vial - multi-dose SQ SCH ×3 (07:29→17:50)
[2019-01-13 08:00] VITALS: BP 153/73
[2019-01-13] MEDS: aspirin 81mg tablet.DR PO SCH (08:08)
[2019-01-13] MEDS: divalproex sod 250mg ER (24-hour) tablet PO SCH (08:08)
[2019-01-13] MEDS: FLUoxetine 20mg capsule PO SCH (08:08)
[2019-01-13] MEDS: lactobacillus rhamnosus 10,000 MMU CELLS/CAPSULE PO SCH ×2 (08:08→20:52)
[2019-01-13] MEDS: cyanocobalamin 500mcg tablet PO SCH (08:08)
[2019-01-13] MEDS: LORazepam 0.5 MG tablet PO SCH ×3 (08:08→20:52)
[2019-01-13] MEDS: multivitamins, therapeutics tablet PO SCH (08:08)
[2019-01-13] MEDS: tamsulosin 0.4mg capsule PO SCH (08:08)
[2019-01-13] MEDS: pantoprazole 40mg Tablet.DR PO SCH (08:09)
[2019-01-13] MEDS: magnesium oxide 400mg tablet PO SCH (08:09)
--- NOTE | 2019-01-13 14:34 | NUR ---
NURSING PROGRESS REPORT: Legal hold: Voluntary Client on voluntary status for GD. Report received from FRANK Smalls with use of SBAR. Why are they here: Pt. admitted for a mental health evaluation. His staff of the [facility] residence he lives at in [place] stated Mr. Turpin has been refusing to care for himself for the past week. According to staff, Mr. Turpin has not been eating or drinking, and has not been taking his medications. Per staff, Mr. Turpin has schizophrenia and has gone into catatonic states in the past associated with his diabetes. Mr. Turpin was seen at [facility] prior to this admission and prescribed antibiotics for possible pneumonia. Assessment What has happened this shift: Pt brighter, more alert today. Pt kept his eyes opened and made eye contact. Pt observed with a slight scowl from time to time. Pt had the appearance of considering not cooperating at times today with feeding and medication (would pull away from the spoon or lean backk away from staff) but with simple direction and gentle encouragement he did cooperate. Pt was evaluated by speech therapy today and a pureed diet with thin liquids was recommended, pt ate 100% of his pureed lunch. Pt has both top and bottom dentures, the top ones are somewhat loose and denture adhesive is needed to keep in place. Pt showered today with assist and was toileted routinely. Pt maintained continence today while awake. PCT reported that pt had a medium formed BM. This RN asked pt after lunch and toileting if he wanted to stay up and return to the group room or whether he was tired and wished to lie down and nap. Pt stood there considering and seemed on the brink of a verbal response but did not verbalize his wishes. Requested pt show us by walking to his bed or out of the room into the hallway, pt's eyes indicated awareness of what was being asked of him, again he seemed to be considering his response though did not respond. Pt did not appear tired, this RN requested that PCT escort pt back to the group room, pt cooperated with ambulating back to the group room with stand by assist of one. Pt continues on AC/HS FSBG checks and routine Humulin 5 units before meals. FSBG today AC bkfst was 120, AC lunch was 271. S/I, H/I: Unable to assess, no unsafe behaviors noted A/VH: Pt is nonverbal, no indications of response to internal stimuli Sleep: Pt slept 7.5 hours per noc shift report. ADL's: Pt needs a one person assist with all ADLs. He responds well to task orientation and is able to follow simple 1 to 2 step commands. He is a total assist with feeding, so far, he will not even hold a cup in his hand. He requires prompting and stand by assist for transfers, toileting and ambulation, he needs help with wiping. If he is not toileted routinely, he is incontinent of bowel and bladder, he is nonverbal and unable to make his needs known at this time. Group attendance: Yes, passive participant Were meds taken: Yes Any med S/E: None noted Mental Status Exam Appearance: Slow moving, nonverbal elderly gentleman with dentures and cropped white hair dressed in green hospital scrubs. Eye contact: Good Behavior: Slow moving, mildly resistant to feeding/meds but cooperative with encouragement Speech: Non verbal Mood: appears irritable/somewhat surly at times Affect: Irritable, blunted Thought process: Unable to assess Thought Content: Unable to assess Cognition: Unable to assess though pt responds to his name, seems to be at least A/O X 1 Insight: Unable to assess Judgment: Unable to assess Interventions PRN's used: None Therapeutic interventions: 1:1 assessment, task orientation; simple 1 to 2 step directions, positive reinforcement, swallow precautions, fall precautions, one person assist with ambulation, toileting, bathing, and feeding, medication administration/monitoring/education, routine toileting, Q15 min safety checks. Restraints/seclusion/emergency medication: N/A Justification of Continued Inpatient Treatment: Pt has a history of catatonic episodes, he is currently nonverbal and gravely disabled. He needs therapeutic support and medication management to provide stabilization and return to baseline level of function. If pt does not return to previous baseline level of functioning, he may need a higher level of care.
--- NOTE | 2019-01-13 17:59 | NUR ---
Handed pt a cup of pureed fruit at dinner. Pt held the cup in his left hand and used his right to feed himself the fruit on a spoon. Pt needs encouraged to hold one food item at at time, allow pt sufficient time to feed himself. Pt may be overwhelmed by multiple items on a tray. Handing him one item at a time increases the chance that pt will feed himself.
[2019-01-13 20:02] VITALS: BP 145/73
[2019-01-13] MEDS: insulin glargine (Lantus) pen - multi-dose SQ SCH (20:51)
[2019-01-13] MEDS: Melatonin 3mg tablet PO SCH (20:52)
[2019-01-13] MEDS: aripiprazole 5mg tablet PO SCH (20:55)
--- NOTE | 2019-01-14 04:42 | NUR ---
NURSING PROGRESS REPORT: Legal hold: Voluntary Client on voluntary status for GD. Report received from FRANK Medley with use of SBAR. Why are they here: Pt. admitted for a mental health evaluation. His staff of the [facility] residence he lives at in [place] stated Mr. Turpin has been refusing to care for himself for the past week. According to staff, Mr. Turpin has not been eating or drinking, and has not been taking his medications. Per staff, Mr. Turpin has schizophrenia and has gone into catatonic states in the past associated with his diabetes. Mr. Turpin was seen at [facility] prior to this admission and prescribed antibiotics for possible pneumonia. Assessment What has happened this shift: Patient in the group room finishing his meal at the beginning of shift. Shortly after finishing he ambulated the reeves using his walker with staff stand by. Patient pleasant, only answers questions with a "yes" or "no" and sometimes not answering at all. Patient HS 467, received HS Lantus 15 units in LLQ. Patient compliant with oral medications and tolerated well. Patient continues to be toileted by staff. Patient endorsed depression but did not answer questions regarding SI, V/AH. S/I, H/I: Unable to assess, no unsafe behaviors noted A/VH: Pt is nonverbal, no indications of response to internal stimuli Sleep: asleep at this time ADL's: Pt needs a one person assist with all ADLs. He responds well to task orientation and is able to follow simple 1 to 2 step commands. He is a total assist with feeding, so far, he will not even hold a cup in his hand. He requires prompting and stand by assist for transfers, toileting and ambulation, he needs help with wiping. If he is not toileted routinely, he is incontinent of bowel and bladder, he is nonverbal and unable to make his needs known at this time. Group attendance:no groups this shift Were meds taken: Yes Any med S/E: None noted Mental Status Exam Appearance: Slow moving, nonverbal elderly gentleman with dentures and cropped white hair dressed in green hospital scrubs. Eye contact: Good Behavior: Slow moving, mildly resistant to feeding/meds but cooperative with encouragement Speech: Non verbal Mood: appears irritable/somewhat surly at times Affect: Irritable, blunted Thought process: Unable to assess Thought Content: Unable to assess Cognition: Unable to assess though pt responds to his name, seems to be at least A/O X 1 Insight: Unable to assess Judgment: Unable to assess Interventions PRN's used: None Therapeutic interventions: 1:1 assessment, task orientation; simple 1 to 2 step directions, positive reinforcement, swallow precautions, fall precautions, one person assist with ambulation, toileting, bathing, and feeding, medication administration/monitoring/education, routine toileting, Q15 min safety checks. Restraints/seclusion/emergency medication: N/A Justification of Continued Inpatient Treatment: Pt has a history of catatonic episodes, he is currently nonverbal and gravely disabled. He needs therapeutic support and medication management to provide stabilization and return to baseline level of function. If pt does not return to previous baseline level of functioning, he may need a higher level of care.
[2019-01-14] MEDS: lactobacillus rhamnosus 10,000 MMU CELLS/CAPSULE PO SCH ×2 (07:38→20:43)
[2019-01-14] MEDS: aspirin 81mg tablet.DR PO SCH (07:38)
[2019-01-14] MEDS: LORazepam 0.5 MG tablet PO SCH ×3 (07:38→20:42)
[2019-01-14] MEDS: cyanocobalamin 500mcg tablet PO SCH (07:38)
[2019-01-14] MEDS: multivitamins, therapeutics tablet PO SCH (07:39)
[2019-01-14] MEDS: magnesium oxide 400mg tablet PO SCH (07:39)
[2019-01-14] MEDS: pantoprazole 40mg Tablet.DR PO SCH (07:39)
[2019-01-14] MEDS: tamsulosin 0.4mg capsule PO SCH (07:40)
[2019-01-14] MEDS: FLUoxetine 20mg capsule PO SCH (07:40)
[2019-01-14] MEDS: insulin regular, human vial - multi-dose SQ SCH ×3 (08:07→17:21)
[2019-01-14 08:08] VITALS: BP 141/62
[2019-01-14] MEDS: divalproex sod 250mg ER (24-hour) tablet PO SCH (08:34)
--- NOTE | 2019-01-14 17:30 | NUR ---
NURSING PROGRESS REPORT: Legal hold: Voluntary Client on voluntary status for GD. Report received from FRANK Smalls with use of SBAR. Why are they here: Pt. admitted for a mental health evaluation. His staff of the [facility] residence he lives at in [place] stated Mr. Turpin has been refusing to care for himself for the past week. According to staff, Mr. Turpin has not been eating or drinking, and has not been taking his medications. Per staff, Mr. Turpin has schizophrenia and has gone into catatonic states in the past associated with his diabetes. Mr. Turpin was seen at [facility] prior to this admission and prescribed antibiotics for possible pneumonia. Assessment What has happened this shift: Pt. asleep at start of shift. Pt. woken up for CBG and became agitateed but allowed RN to do CBG. RN asked pt. if he wanted to get up to use the bathroom and pt. replied, "No". Pt. took all medications and ate all meals in the community room. Pt. is a 1 person assist to feet and toilet. Pt. is resistive to care at times today, staff attempted to encourage fluids and pt. refused. Pt. has pressure sore on bottom that is [id number]. optifoam dressing applied. Pt. had small bm today. Pt.'s CBG today were AM 162, noon 287, 1700 334. Pt.'s sister encouraged staff to sing to pt., when this RN attempted to sing to pt., pt. began to cry. S/I, H/I: Unable to assess, no unsafe behaviors noted A/VH: Pt. does not respond. no indications of response to internal stimuli Sleep: Pt. napped x1 ADL's: Pt needs a one person assist with all ADLs. He responds well to task orientation and is able to follow simple 1 to 2 step commands. He is a total assist with feeding, so far, he will not even hold a cup in his hand. He requires prompting and stand by assist for transfers, toileting and ambulation, he needs help with wiping. If he is not toileted routinely, he is incontinent of bowel and bladder, he is minimaly verbal and unable to make his needs known at this time. Group attendance: Yes Were meds taken: Yes Any med S/E: None noted Mental Status Exam Appearance: Slow moving, elderly gentleman with dentures and cropped white hair dressed in green hospital scrubs. Eye contact: Good Behavior: Slow moving, mildly resistant to feeding/meds but cooperative with encouragement Speech: Non verbal Mood: agitated/depressed Affect: Blunted Thought process: Unable to assess Thought Content: Unable to assess Cognition: Unable to assess though pt responds to his name, seems to be at least A/O X 1 Insight: Unable to assess Judgment: Unable to assess Interventions PRN's used: None Therapeutic interventions: 1:1 assessment, task orientation; simple 1 to 2 step directions, positive reinforcement, swallow precautions, fall precautions, one person assist with ambulation, toileting, bathing, and feeding, medication administration/monitoring/education, routine toileting, Q15 min safety checks. Restraints/seclusion/emergency medication: N/A Justification of Continued Inpatient Treatment: Pt has a history of catatonic episodes, he is currently nonverbal and gravely disabled. He needs therapeutic support and medication management to provide stabilization and return to baseline level of function. If pt does not return to previous baseline level of functioning, he may need a higher level of care.
[2019-01-14 20:00] VITALS: BP 159/61
[2019-01-14] MEDS: Melatonin 3mg tablet PO SCH (20:42)
[2019-01-14] MEDS: aripiprazole 5mg tablet PO SCH (20:43)
[2019-01-14] MEDS: docusate sod 100mg capsule PO SCH (20:43)
[2019-01-14] MEDS: insulin glargine (Lantus) pen - multi-dose SQ SCH (21:15)
--- NOTE | 2019-01-15 05:21 | NUR ---
NURSING PROGRESS REPORT: Legal hold: Voluntary Client on voluntary status for GD. Report received from FRANK Park with use of SBAR. Why are they here: Pt. admitted for a mental health evaluation. His staff of the [facility] residence he lives at in [place] stated Mr. Turpin has been refusing to care for himself for the past week. According to staff, Mr. Turpin has not been eating or drinking, and has not been taking his medications. Per staff, Mr. Turpin has schizophrenia and has gone into catatonic states in the past associated with his diabetes. Mr. Turpin was seen at [facility] prior to this admission and prescribed antibiotics for possible pneumonia. Assessment What has happened this shift: Patient sitting in the group room at shift change. This screen writer attempted to do HS FSBG before patient ate his snack but the patient was resisting. CRN was notified and she attempted as well but the patient continued to be unwilling, pulling away and guarded. With some time and the help of a tech that he is more comfortable with his HS FSBG was able to be done. Patient continued to pull away from this screen writer during med pass and again with the help of the tech coaching the patient he was willing to take his medication. The patient continues to be toileted through the shift. S/I, H/I: Unable to assess, no unsafe behaviors noted A/VH: Pt is nonverbal, no indications of response to internal stimuli Sleep: asleep at this time ADL's: Pt needs a one person assist with all ADLs. He responds well to task orientation and is able to follow simple 1 to 2 step commands. He is a total assist with feeding, so far, he will not even hold a cup in his hand. He requires prompting and stand by assist for transfers, toileting and ambulation, he needs help with wiping. If he is not toileted routinely, he is incontinent of bowel and bladder, he is nonverbal and unable to make his needs known at this time. Group attendance:no groups this shift Were meds taken: Yes Any med S/E: None observed Mental Status Exam Appearance: Slow moving, nonverbal elderly gentleman with dentures and cropped white hair dressed in green hospital scrubs. Eye contact: Good Behavior: Slow moving, mildly resistant to feeding/meds but cooperative with encouragement Speech: Non verbal Mood: agitated Affect: Irritable, blunted Thought process: Unable to assess Thought Content: Unable to assess Cognition: Unable to assess though pt responds to his name, seems to be at least A/O X 1 Insight: Unable to assess Judgment: Unable to assess Interventions PRN's used: None Therapeutic interventions: 1:1 assessment, task orientation; simple 1 to 2 step directions, positive reinforcement, swallow precautions, fall precautions, one person assist with ambulation, toileting, bathing, and feeding, medication administration/monitoring/education, routine toileting, Q15 min safety checks. Restraints/seclusion/emergency medication: N/A Justification of Continued Inpatient Treatment: Pt has a history of catatonic episodes, he is currently nonverbal and gravely disabled. He needs therapeutic support and medication management to provide stabilization and return to baseline level of function. If pt does not return to previous baseline level of functioning, he may need a higher level of care.
[2019-01-15] MEDS: insulin regular, human vial - multi-dose SQ SCH ×3 (08:19→17:24)
[2019-01-15] MEDS: FLUoxetine 20mg capsule PO SCH (08:21)
[2019-01-15] MEDS: divalproex sod 250mg ER (24-hour) tablet PO SCH (08:21)
[2019-01-15] MEDS: cyanocobalamin 500mcg tablet PO SCH (08:22)
[2019-01-15] MEDS: multivitamins, therapeutics tablet PO SCH (08:22)
[2019-01-15] MEDS: magnesium oxide 400mg tablet PO SCH (08:23)
[2019-01-15] MEDS: pantoprazole 40mg Tablet.DR PO SCH (08:23)
[2019-01-15 08:24] VITALS: BP 174/77
[2019-01-15] MEDS: LORazepam 0.5 MG tablet PO SCH ×3 (08:24→20:39)
[2019-01-15] MEDS: lactobacillus rhamnosus 10,000 MMU CELLS/CAPSULE PO SCH ×2 (08:24→20:39)
[2019-01-15] MEDS: docusate sod 100mg capsule PO SCH ×2 (08:24→20:39)
[2019-01-15] MEDS: tamsulosin 0.4mg capsule PO SCH (08:25)
[2019-01-15] MEDS: aspirin 81mg tablet.DR PO SCH (08:25)
--- NOTE | 2019-01-15 15:08 | NUR ---
DISCHARGE PLANNING: Called AMADOU and Awilda at [facility]. [facility], awaiting calls back
--- NOTE | 2019-01-15 15:47 | NUR ---
[facility] specialty bed ordered. Confirmation # [id number]
--- NOTE | 2019-01-15 17:30 | NUR ---
NURSING PROGRESS REPORT: Legal hold: Voluntary Client on voluntary status for GD. Report received from FRANK Park with use of SBAR. Why are they here: Pt. admitted for a mental health evaluation. His staff of the [facility] residence he lives at in [place] stated Mr. Turpin has been refusing to care for himself for the past week. According to staff, Mr. Turpin has not been eating or drinking, and has not been taking his medications. Per staff, Mr. Turpin has schizophrenia and has gone into catatonic states in the past associated with his diabetes. Mr. Turpin was seen at [facility] prior to this admission and prescribed antibiotics for possible pneumonia. Assessment What has happened this shift: Pt. alseep at start of shift. Pt.'s AM CBG was 75. Pt. was incontinent and changed. Pt. ambulated to breakfast with walker. Pt. total assist for breakfast, when RN attempted to put fork into pt.'s hand, pt.'s hand became tremulous so that he could not hold the fork. Pt. initally refused taking bites but then ate about half of his tray. Pt. took all medications. Pt. minimally verbal, only responding with "Yes" or "No". During 1:1 assessment pt.'s coccyx wound optiform bandage changed. wound is clean and intact with minimal drainage. diabetic foot ulcer was discovered. Wound consult placed and wound nurse ordered barrier spray and optiform bandage q day. Also a wound bed was ordered. Hospitalist ordered the following: Rotate pt. q 2 hours while in bed. Pt. to wear boots while in bed. Pt. to be bathed daily. Barrier cream to be applied daily. Pt. to use Juanpablo Cushion while sitting in chair. Wound care instructions: cleanse Coccyx wound with normal saline and pat dry, apply barrier spray, and then optifoam. assess wound qshift and change bandage Q2days. Pt. refuses water so give patient sugar free powder mixed in water. Toilet pt. frequently, pt. was incontinent x2 today. Pt. requires much time to respond to directions. Also give pt. much encouragement in directions and reassurance. S/I, H/I: Unable to assess, no unsafe behaviors noted A/VH: Pt is nonverbal, no indications of response to internal stimuli Sleep: asleep at this time ADL's: Pt needs a one person assist with all ADLs. He responds well to task orientation and is able to follow simple 1 to 2 step commands. He is a total assist with feeding, so far, he will not even hold a cup in his hand. He requires prompting and stand by assist for transfers, toileting and ambulation, he needs help with wiping. If he is not toileted routinely, he is incontinent of bowel and bladder, he is nonverbal and unable to make his needs known at this time. Group attendance: yes Were meds taken: Yes Any med S/E: None observed Mental Status Exam Appearance: Slow moving, nonverbal elderly gentleman with dentures and cropped white hair dressed in green hospital scrubs. Eye contact: Good Behavior: Slow moving, mildly resistant to feeding/meds but cooperative with encouragement Speech: Minimal. Responds with "yes" and "no" Mood: agitated with a few moments of cheerfulness and smiles. Affect: Flat with moments of brightening. Thought process: Unable to assess Thought Content: Unable to assess Cognition: A&Ox1 Insight: Poor Judgment: Poor Interventions PRN's used: None Therapeutic interventions: 1:1 assessment, task orientation; simple 1 to 2 step directions, positive reinforcement, swallow precautions, fall precautions, one person assist with ambulation, toileting, bathing, and feeding, medication administration/monitoring/education, routine toileting, Q15 min safety checks. Restraints/seclusion/emergency medication: N/A Justification of Continued Inpatient Treatment: Pt has a history of catatonic episodes, he is currently nonverbal and gravely disabled. He needs therapeutic support and medication management to provide stabilization and return to baseline level of function. If pt does not return to previous baseline level of functioning, he may need a higher level of care.
[2019-01-15 20:00] VITALS: BP 130/55
[2019-01-15] MEDS: aripiprazole 5mg tablet PO SCH (20:38)
[2019-01-15] MEDS: Melatonin 3mg tablet PO SCH (20:39)
[2019-01-15] MEDS: insulin glargine (Lantus) pen - multi-dose SQ SCH (20:48)
--- NOTE | 2019-01-15 22:25 | NUR ---
JUVENTINO PROGRESS REPORT: Legal hold: Voluntary Client on voluntary status for GD. Report received from FRANK Park with use of SBAR. Why are they here: Pt. admitted for a mental health evaluation. His staff of the [facility] residence he lives at in [place] stated Mr. Turpin has been refusing to care for himself for the past week. According to staff, Mr. Turpin has not been eating or drinking, and has not been taking his medications. Per staff, Mr. Turpin has schizophrenia and has gone into catatonic states in the past associated with his diabetes. Mr. Turpin was seen at [facility] prior to this admission and prescribed antibiotics for possible pneumonia. Assessment What has happened this shift: Patient is sitting on a Juanpablo cushion in the day room watching television. Patient is non verbal. Eye contact is poor. He is warm and dry with good color. Patient ate his meal with assistance from a tech. Patient ambulated with walker and assist to the bathroom. Patient given benjamin care. Bandaging is intact. Patient follows is able to take evening medications. Patient is rolled side to side with pillow placement Q 2 hours. Patient drank PO fluids at bedtime. (6 oz) Pt. requires much time to respond to directions. Also give pt. much encouragement in directions and reassurance. S/I, H/I: Unable to assess, no unsafe behaviors noted A/VH: Pt is nonverbal, no indications of response to internal stimuli. Sleep: Asleep at this time ADL's: Pt needs a one person assist with all ADLs. He responds well to task orientation and is able to follow simple 1 to 2 step commands. He is a total assist with feeding, so far, he will not even hold a cup in his hand. He requires prompting and stand by assist for transfers, toileting and ambulation, he needs help with wiping. If he is not toileted routinely, he is incontinent of bowel and bladder, he is nonverbal and unable to make his needs known at this time. Group attendance: yes Were meds taken: Yes Any med S/E: None observed Mental Status Exam Appearance: Slow moving, nonverbal elderly gentleman with dentures and cropped white hair dressed in green hospital scrubs. Eye contact: Good Behavior: Slow moving, mildly resistant to feeding/meds but cooperative with encouragement Speech: Minimal. Responds with "yes" and "no" Mood: agitated with a few moments of cheerfulness and smiles. Affect: Flat with moments of brightening. Thought process: Unable to assess Thought Content: Unable to assess Cognition: A&Ox1 Insight: Poor Judgment: Poor Interventions PRN's used: None Therapeutic interventions: 1:1 assessment, task orientation; simple 1 to 2 step directions, positive reinforcement, swallow precautions, fall precautions, one person assist with ambulation, toileting, bathing, and feeding, medication administration/monitoring/education, routine toileting, Q15 min safety checks. Restraints/seclusion/emergency medication: N/A Justification of Continued Inpatient Treatment: Pt has a history of catatonic episodes, he is currently nonverbal and gravely disabled. He needs therapeutic support and medication management to provide stabilization and return to baseline level of function. If pt does not return to previous baseline level of functioning, he may need a higher level of care.
[2019-01-16] MEDS: insulin regular, human vial - multi-dose SQ SCH ×3 (07:45→17:16)
[2019-01-16] MEDS: pantoprazole 40mg Tablet.DR PO SCH (07:46)
[2019-01-16] MEDS: aspirin 81mg tablet.DR PO SCH (07:46)
[2019-01-16] MEDS: tamsulosin 0.4mg capsule PO SCH (07:47)
[2019-01-16] MEDS: multivitamins, therapeutics tablet PO SCH (07:47)
[2019-01-16] MEDS: FLUoxetine 20mg capsule PO SCH (07:47)
[2019-01-16] MEDS: cyanocobalamin 500mcg tablet PO SCH (07:48)
[2019-01-16] MEDS: magnesium oxide 400mg tablet PO SCH (07:48)
[2019-01-16] MEDS: lactobacillus rhamnosus 10,000 MMU CELLS/CAPSULE PO SCH ×2 (07:48→21:15)
[2019-01-16] MEDS: docusate sod 100mg capsule PO SCH ×2 (07:48→20:00)
[2019-01-16 08:00] VITALS: BP 162/94
[2019-01-16] MEDS: LORazepam 0.5 MG tablet PO SCH ×4 (08:00→21:14)
[2019-01-16] MEDS: divalproex sod 250mg ER (24-hour) tablet PO SCH (08:34)
--- NOTE | 2019-01-16 10:42 | NUR ---
DM/wound consult: Pt not appropriate for DM ed given DX. Hospital-acquired coccyx DTI per consult/WOC notes. Pt advanced to pureed/thin liquids per SP recs requiring feeder but eating well 75-100% meals does fluctuate on occasion. Would benefit from Anish shakes given new wound; MD notified. Pending MD verification prior to sending on trays. LB 01/14. Will continue to monitor. Recommendations: 1) Continue pureed/thin/CHO controlled diet per SP 2) strawberry/vanilla Anish shakes BIDLD pending MD approval 3) Routine bowel care 4) Weekly wt Addendum: 01/16/19 at [address] Amended: Links added.
[2019-01-16] MEDS: pregabalin 75mg capsule PO PRN (14:29)
[2019-01-16] MEDS ORDERED: mesalamine 400 mg capsule.DR PO SCH (17:00)
[2019-01-16] MEDS ORDERED: ASACOL PO SCH (17:00)
[2019-01-16] MEDS: mesalamine 1.2gm ER tablet PO SCH (17:24)
--- NOTE | 2019-01-16 17:50 | NUR ---
NURSING PROGRESS REPORT: Legal hold: Voluntary Client on voluntary status for GD. Report received from FRANK Montesinos with use of SBAR. Why are they here: Pt. admitted for a mental health evaluation. His staff of the [facility] residence he lives at in [place] stated Mr. Turpin has been refusing to care for himself for the past week. According to staff, Mr. Turpin has not been eating or drinking, and has not been taking his medications. Per staff, Mr. Turpin has schizophrenia and has gone into catatonic states in the past associated with his diabetes. Mr. Turpin was seen at [facility] prior to this admission and prescribed antibiotics for possible pneumonia. Assessment What has happened this shift: Pt. asleep at start of shift. Pt. took medications ate all meals in community room. Pt. needs x1 assist to toilet and feed. Pt. Did feed himself a 1/2 jello today. Pt. needs prompting to drink and will only drink flavored drinks. Pt. showered today, wound assessed and shows no S&S of infect, wound has scant serosangeounous dressing, barrier spray applied and covered with optifoam bandage. Pt. walked multiple times today. Pt. in bed twice for 2.5 hours roating pt. on his side every 2 horus. Pillows placed between knees to protect bony prominices. Pt. was mostly non-vebal today stating, "Yes" and "No" at times. Pt. given lyrica for pain, when RN asked pt., "Do you want pain medicine? Pt. reached out and took his medication by himself. Pt. used Juanpablo Matress when sitting. Pt. had small BMx. Pt. startedon Mesalamin 1.2 grams for pt.'s Chrons diease. Pt. is resistive to feeding at times and needs encouragement. Pt. requires much time to respond to directions. Also give pt. much encouragement in directions and reassurance. S/I, H/I: Unable to assess, no unsafe behaviors noted A/VH: Unable to assess, no indications of response to internal stimuli. Sleep: Asleep at this time ADL's: Pt needs a one person assist with all ADLs. He responds well to task orientation and is able to follow simple 1 to 2 step commands. He is a total assist with feeding, so far, he will not even hold a cup in his hand. He requires prompting and stand by assist for transfers, toileting and ambulation, he needs help with wiping. If he is not toileted routinely, he is incontinent of bowel and bladder, he is nonverbal and unable to make his needs known at this time. Pt. showered today. Group attendance: yes Were meds taken: Yes Any med S/E: None observed Mental Status Exam Appearance: Slow moving, nonverbal elderly gentleman with dentures and cropped white hair dressed in [facility] scrubs. Eye contact: Good Behavior: Slow moving, mildly resistant to feeding/meds but cooperative with encouragement Speech: Minimal. Responds with "yes" and "no" Mood: agitated but more cheerful today. Affect: Flat with moments of grimicing and brightening. Pt. laughed a few times today. Thought process: Unable to assess Thought Content: Unable to assess Cognition: A&Ox1 Insight: Poor Judgment: Poor Interventions PRN's used: Tabby Therapeutic interventions: 1:1 assessment, task orientation; simple 1 to 2 step directions, positive reinforcement, swallow precautions, fall precautions, one person assist with ambulation, toileting, bathing, and feeding, medication administration/monitoring/education, routine toileting, Q15 min safety checks. Restraints/seclusion/emergency medication: N/A Justification of Continued Inpatient Treatment: Pt has a history of catatonic episodes, he is currently nonverbal and gravely disabled. He needs therapeutic support and medication management to provide stabilization and return to baseline level of function. If pt does not return to previous baseline level of functioning, he may need a higher level of care.
[2019-01-16 19:00] VITALS: BP 158/80
[2019-01-16] MEDS ORDERED: aripiprazole 5mg tablet PO SCH (21:00)
[2019-01-16] MEDS: Melatonin 3mg tablet PO SCH (21:15)
[2019-01-16] MEDS: insulin glargine (Lantus) pen - multi-dose SQ SCH (21:18)
[2019-01-16] MEDS ORDERED: insulin Lispro (HumaLOG) vial - multi-dose SQ ONE (22:20)
--- NOTE | 2019-01-16 23:10 | NUR ---
HS blood glucose finger stick was administered @ 2119 BG was 473. ANUJ bashir hospitalist front desk lead Dr. Vargas. Received a verbal order to give 12 units of Humalog insulin. Fingerstick was readministered 15 mins later BG was 351.
--- NOTE | 2019-01-17 03:01 | NUR ---
NURSING PROGRESS REPORT: Legal hold: Voluntary Client on voluntary status for GD. Report received from FRANK Park with use of SBAR. Why are they here: Pt. admitted for a mental health evaluation. His staff of the [facility] residence he lives at in [place] stated Mr. Turpin has been refusing to care for himself for the past week. According to staff, Mr. Turpin has not been eating or drinking, and has not been taking his medications. Per staff, Mr. Turpin has schizophrenia and has gone into catatonic states in the past associated with his diabetes. Mr. Turpin was seen at [facility] prior to this admission and prescribed antibiotics for possible pneumonia. Assessment What has happened this shift: Pt is observed sitting in the group room with eyes closed, pt is sitting on prescribed Juanpablo cushion. Pt opens his eyes when his name is called, but does not use words. Pt is assisted to the toilet and brought back to group for HS snack. Pt is medication compliant and 1:1 is completed at bedside. Pt is offered flavored water and he drinks it. Pt's Colace was held due to loose stool. Wound on coccyx was assessed and drsg was changed on day shift and is CDI; skin around coccyx is blanchable. Estephania care was performed and barrier cream was applied x2 as of this writing. Pt is being turned q2h while in bed. Pt's HS blood glucose was 473. Hospitalist was paged and 12 units of Humalog insulin was ordered and administered - BG repeated was 351. Pt received 15 units of scheduled Lantus. Pt. requires much time to respond to directions, but will complete most tasks. S/I, H/I: Unable to assess, no unsafe behaviors noted A/VH: Pt is nonverbal, no indications of response to internal stimuli. Sleep: See sleep assessment notation. ADL's: Pt needs a one person assist with all ADLs. He responds well to task orientation and is able to follow simple 1 to 2 step commands. He is a total assist with feeding, so far, he will not even hold a cup in his hand. He requires prompting and stand by assist for transfers, toileting and ambulation, he needs help with wiping. If he is not toileted routinely, he is incontinent of bowel and bladder, he is nonverbal and unable to make his needs known at this time. 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 Eye contact: Fair. Opens eyes when name is called. Behavior: Slow moving, mildly agitated, cooperative Speech: Minimal. Responds with "yes" and "no" Mood: Agitated with a few moments of cheerfulness and smiles. Affect: Flat with moments of brightening. Thought process: Unable to assess Thought Content: Unable to assess Cognition: A&Ox1 Insight: Poor Judgment: Poor Interventions PRN's used: None Therapeutic interventions: 1:1 assessment, task orientation; simple 1 to 2 step directions, positive reinforcement, swallow precautions, fall precautions, one person assist with ambulation, toileting, bathing, and feeding, medication administration/monitoring/education, routine toileting, wound care dressing change and monitoring, estephania care; Q15 min safety checks. Restraints/seclusion/emergency medication: N/A Justification of Continued Inpatient Treatment: Pt has a history of catatonic episodes, he is currently nonverbal and gravely disabled. He needs therapeutic support and medication management to provide stabilization and return to baseline level of function. If pt does not return to previous baseline level of functioning, he may need a higher level of care. Addendum: 01/17/19 at 0504 by Julia Ramos RN Be aware of pt's elbows while in bed. Floated elbows on pillow over night.
[2019-01-17] MEDS: FLUoxetine 20mg capsule PO SCH (07:20)
[2019-01-17] MEDS: lactobacillus rhamnosus 10,000 MMU CELLS/CAPSULE PO SCH ×2 (07:21→21:29)
[2019-01-17] MEDS: cyanocobalamin 500mcg tablet PO SCH (07:21)
[2019-01-17] MEDS: pregabalin 75mg capsule PO PRN (07:21)
[2019-01-17] MEDS: aspirin 81mg tablet.DR PO SCH (07:22)
[2019-01-17] MEDS: tamsulosin 0.4mg capsule PO SCH (07:22)
[2019-01-17] MEDS: multivitamins, therapeutics tablet PO SCH (07:22)
[2019-01-17] MEDS: pantoprazole 40mg Tablet.DR PO SCH (07:22)
[2019-01-17] MEDS: magnesium oxide 400mg tablet PO SCH (07:22)
[2019-01-17] MEDS: mesalamine 1.2gm ER tablet PO SCH ×3 (07:24→16:52)
[2019-01-17] MEDS: dextrose ORAL solution 15 GM/59 ML bottle PO PRN (07:39)
--- NOTE | 2019-01-17 07:44 | NUR ---
Blood sugar 57 given oraldextrose
[2019-01-17] MEDS: docusate sod 100mg capsule PO SCH ×2 (08:00→21:29)
[2019-01-17] MEDS: LORazepam 0.5 MG tablet PO SCH ×3 (08:21→21:33)
[2019-01-17] MEDS: insulin regular, human vial - multi-dose SQ SCH ×3 (08:35→17:05)
[2019-01-17 08:41] VITALS: BP 192/76
[2019-01-17] MEDS: divalproex sod 250mg ER (24-hour) tablet PO SCH (08:43)
[2019-01-17 10:12] VITALS: BP 129/66
--- NOTE | 2019-01-17 10:53 | NUR ---
NURSING PROGRESS REPORT: Legal hold: Voluntary Client on voluntary status for GD. Report received from Corina MARIE with use of SBAR. Why are they here: Pt. admitted for a mental health evaluation. His staff of the [facility] residence he lives at in [place] stated Mr. Turpin has been refusing to care for himself for the past week. According to staff, Mr. Turpin has not been eating or drinking, and has not been taking his medications. Per staff, Mr. Turpin has schizophrenia and has gone into catatonic states in the past associated with his diabetes. Mr. Turpin was seen at [facility] prior to this admission and prescribed antibiotics for possible pneumonia. Assessment What has happened this shift: Patient was found in bed at change of shift. Blood sugar taken which was 57. Given oral glucose. Blood suger rechecked and now is 75. Redressed wound and cleaned benjamin area He is mostly nonverbal. He did answer several questions with yes or no that were closed ended questions. He will nod or shake his head. He ate all of the food that was served to him although it took him an extraordinarily long time to finish his food. He required some prompting and cutting of his food into smaller bites. He ambulates well using a walker. He is able to swallow his medications. He offers his finger for blood glucose checks. He tires easily and affirms that he has all over pain. S/I, H/I: Unable to assess A/VH: Unable to assess. Sleep: Currently sleeping. See sleep assessment notation. ADL's: Needs assistance. Pt uses a FWW, incontinent x1 Group attendance: Yes Were meds taken: Yes Any med S/E: None reported or observed. Mental Status Exam Appearance: Disheveled, wearing green unit scrubs, Eye contact: Poor Behavior: Cooperative, delayed Speech: Soft, minimal, delayed Mood: Unable to assess Affect: blunted Thought process: Unable to assess Thought Content: Unable to assess Cognition: A&O to self and place (knew he was in [place]) Insight: Unable to assess Judgment: Unable to assess Interventions PRN's used: Lyricaand Tylenol Therapeutic interventions: 1:1 therapeutic assessment, medication administration/education/monitoring, provided clear/simple instructions, Q15 min safety checks. Restraints/seclusion/emergency medication: N/A Justification of Continued Inpatient Treatment: Pt is gravely disabled and needs therapeutic support and medication management to provide stabilization.
[2019-01-17] MEDS: JUVEN Shake w/Arg/Glut/Ca2+Bmb (Juven 19.3gm) pkt 240ml PO SCH ×2 (12:30→17:30)
[2019-01-17 19:57] VITALS: BP_SYST 126
[2019-01-17] MEDS ORDERED: aripiprazole 5mg tablet PO SCH (21:00)
[2019-01-17] MEDS: Melatonin 3mg tablet PO SCH (21:29)
[2019-01-17] MEDS: insulin glargine (Lantus) pen - multi-dose SQ SCH (21:38)
--- NOTE | 2019-01-18 03:34 | NUR ---
NURSING PROGRESS REPORT: Legal hold: Voluntary Client on voluntary status for GD. Report received from Xavier MARIE with use of SBAR. Why are they here: Pt. admitted for a mental health evaluation. His staff of the [facility] residence he lives at in [place] stated Mr. Turpin has been refusing to care for himself for the past week. According to staff, Mr. Turpin has not been eating or drinking, and has not been taking his medications. Per staff, Mr. Turpin has schizophrenia and has gone into catatonic states in the past associated with his diabetes. Mr. Turpin was seen at [facility] prior to this admission and prescribed antibiotics for possible pneumonia. Assessment What has happened this shift: Patient up in group room at start of shift. Pt more responsive this week than last, answered question, yes. Good eye contact, smiled appropriately and was able with prompting to feed himself. Blood sugar taken which was 350. Another pt had given pt snack before blood sugar taken which might have contributed to high result. He had been incontinent of urine at start of shift. Estephania care done. Pt has a open area sacrum. Cleaned with NS foam drsing applied. Pt turned Q2h and toileted Q4h. Has been continent of urine other than at start of shift. S/I, H/I: Unable to assess A/VH: Unable to assess. Sleep: Currently sleeping. ADL's: Needs assistance. Pt uses a FWW, incontinent x1 Group attendance: Yes Were meds taken: Yes Any med S/E: None reported or observed. Mental Status Exam Appearance: Well groomed wearing green unit scrubs, Eye contact: Fair Behavior: Cooperative, delayed Speech: Soft, minimal, slow Mood: Unable to assess Affect: blunted Thought process: Unable to assess Thought Content: Unable to assess Cognition: A&O to self and place (knew he was in [place]) Insight: Unable to assess Judgment: Unable to assess Interventions PRN's used: none Therapeutic interventions: 1:1 therapeutic assessment, medication administration/education/monitoring, provided clear/simple instructions, Q15 min safety checks. Restraints/seclusion/emergency medication: N/A Justification of Continued Inpatient Treatment: Pt is gravely disabled and needs therapeutic support and medication management to provide stabilization.
[2019-01-18] MEDS: dextrose ORAL solution 15 GM/59 ML bottle PO PRN (07:14)
[2019-01-18] MEDS: aspirin 81mg tablet.DR PO SCH (07:35)
[2019-01-18] MEDS: multivitamins, therapeutics tablet PO SCH (07:35)
[2019-01-18] MEDS: mesalamine 1.2gm ER tablet PO SCH ×3 (07:35→17:40)
[2019-01-18] MEDS: tamsulosin 0.4mg capsule PO SCH (07:35)
[2019-01-18] MEDS: lactobacillus rhamnosus 10,000 MMU CELLS/CAPSULE PO SCH ×2 (07:35→20:15)
[2019-01-18] MEDS: FLUoxetine 20mg capsule PO SCH (07:35)
[2019-01-18 07:36] VITALS: BP 157/71
[2019-01-18] MEDS: LORazepam 0.5 MG tablet PO SCH ×3 (07:36→20:15)
[2019-01-18] MEDS: cyanocobalamin 500mcg tablet PO SCH (07:36)
[2019-01-18] MEDS: magnesium oxide 400mg tablet PO SCH (07:36)
[2019-01-18] MEDS: docusate sod 100mg capsule PO SCH ×2 (07:36→20:15)
[2019-01-18] MEDS: pantoprazole 40mg Tablet.DR PO SCH (07:40)
[2019-01-18] MEDS: divalproex sod 250mg ER (24-hour) tablet PO SCH (07:40)
[2019-01-18] MEDS: insulin regular, human vial - multi-dose SQ SCH ×3 (07:46→17:39)
--- NOTE | 2019-01-18 18:18 | NUR ---
NURSING PROGRESS REPORT: Legal hold: Voluntary Client on voluntary status for GD. Report received from Carolyn MARIE with use of SBAR. Why are they here: Pt. admitted for a mental health evaluation. His staff of the [facility] residence he lives at in [place] stated Mr. Turpin has been refusing to care for himself for the past week. According to staff, Mr. Turpin has not been eating or drinking, and has not been taking his medications. Per staff, Mr. Turpin has schizophrenia and has gone into catatonic states in the past associated with his diabetes. Mr. Turpin was seen at [facility] prior to this admission and prescribed antibiotics for possible pneumonia. Assessment What has happened this shift: Patient in bed awake at change of shift. Patient is in a pleasant mood today. He is walking with walker and standby assist. Patient went outside during group, is eating his food independently. Patient has been out of bed during the day. S/I, H/I: Unable to assess A/VH: Unable to assess. Sleep: 7.0 hrs. NOC. ADL's: Needs assistance. Pt uses a FWW Group attendance: Yes Were meds taken: Yes Any med S/E: None reported or observed. Mental Status Exam Appearance: Disheveled, wearing green unit scrubs, Eye contact: Poor Behavior: Cooperative, delayed Speech: Soft, minimal, delayed Mood: Good. Affect: blunted Thought process: Unable to assess Thought Content: Unable to assess Cognition: A&O to self and place (knew he was in [place]) Insight: Unable to assess Judgment: Unable to assess Interventions PRN's used: None Therapeutic interventions: 1:1 therapeutic assessment, medication administration/education/monitoring, provided clear/simple instructions, Q15 min safety checks. Restraints/seclusion/emergency medication: N/A Justification of Continued Inpatient Treatment: Pt is gravely disabled and needs therapeutic support and medication management to provide stabilization.
[2019-01-18] MEDS ORDERED: bisacodyl 10mg suppository rectal RC ONE (18:40)
[2019-01-18] MEDS: Melatonin 3mg tablet PO SCH (20:14)
[2019-01-18 20:19] VITALS: BP 159/74
[2019-01-18] MEDS: insulin glargine (Lantus) pen - multi-dose SQ SCH (20:22)
--- NOTE | 2019-01-18 23:51 | NUR ---
NURSING PROGRESS REPORT: Legal hold: Voluntary Client on voluntary status for GD. Report received from Xavier MARIE with use of SBAR. Why are they here: Pt. admitted for a mental health evaluation. His staff of the [facility] residence he lives at in [place] stated Mr. Turpin has been refusing to care for himself for the past week. According to staff, Mr. Turpin has not been eating or drinking, and has not been taking his medications. Per staff, Mr. Turpin has schizophrenia and has gone into catatonic states in the past associated with his diabetes. Mr. Turpin was seen at [facility] prior to this admission and prescribed antibiotics for possible pneumonia. Assessment What has happened this shift: Patient up in group room at start of shift. Pt continues to become more and more responsive. Answers simple question with Yes or no. Geting hp out of chir without assist. Ambulated all the way to his room with a stand by assist. Good eye contact, smiled appropriately and was able with prompting to feed himself. Blood sugar taken which was 382. No incontinence so far this shift. Given supp result large soft formed stool. Estephania care done. Pt has a open area sacrum, drsing clean dry and intact. Pt turned Q2h and toileted Q4h. S/I, H/I: Unable to assess A/VH: Unable to assess. Sleep: Currently sleeping. ADL's: Needs assistance. Pt uses a FWW Group attendance: Yes Were meds taken: Yes Any med S/E: None reported or observed. Mental Status Exam Appearance: Well groomed wearing green unit scrubs, Eye contact: Fair Behavior: Cooperative, delayed Speech: Soft, minimal, slow Mood: Unable to assess Affect: blunted Thought process: Unable to assess Thought Content: Unable to assess Cognition: A&O to self and place (knew he was in [place]) Insight: Unable to assess Judgment: Unable to assess Interventions PRN's used: none Therapeutic interventions: 1:1 therapeutic assessment, medication administration/education/monitoring, provided clear/simple instructions, Q15 min safety checks. Restraints/seclusion/emergency medication: N/A Justification of Continued Inpatient Treatment: Pt is gravely disabled and needs therapeutic support and medication management to provide stabilization.
[2019-01-19] MEDS: mesalamine 1.2gm ER tablet PO SCH ×3 (07:28→18:29)
[2019-01-19] MEDS: lactobacillus rhamnosus 10,000 MMU CELLS/CAPSULE PO SCH ×2 (07:29→19:54)
[2019-01-19] MEDS: FLUoxetine 20mg capsule PO SCH (07:29)
[2019-01-19] MEDS: multivitamins, therapeutics tablet PO SCH (07:29)
[2019-01-19] MEDS: docusate sod 100mg capsule PO SCH ×2 (07:29→19:54)
[2019-01-19] MEDS: pantoprazole 40mg Tablet.DR PO SCH (07:29)
[2019-01-19] MEDS: tamsulosin 0.4mg capsule PO SCH (07:29)
[2019-01-19] MEDS: magnesium oxide 400mg tablet PO SCH (07:29)
[2019-01-19] MEDS: cyanocobalamin 500mcg tablet PO SCH (07:30)
[2019-01-19] MEDS: aspirin 81mg tablet.DR PO SCH (07:30)
[2019-01-19] MEDS: LORazepam 0.5 MG tablet PO SCH ×3 (07:30→19:54)
--- NOTE | 2019-01-19 07:56 | NUR ---
1:1 SS worker called angela Ray at [facility] [phone] @ [phone] to coordinate f/u appointments
[2019-01-19 08:00] VITALS: BP 167/72
[2019-01-19] MEDS: insulin regular, human vial - multi-dose SQ SCH ×4 (08:05→18:57)
[2019-01-19] MEDS: divalproex sod 250mg ER (24-hour) tablet PO SCH (08:29)
--- NOTE | 2019-01-19 12:00 | NUR ---
1:1 SS spoke with Radha at [facility]. Radha from [facility] will be meeting with pt. on FridayJan.26 at 2 pm. Radha ( [facility] district representative) also noted she will be bringing social security paperwork to [facility] for pt. signature no later then .
--- NOTE | 2019-01-19 14:21 | NUR ---
PRESSURE ULCER EDUCATION: DEFINITION: A pressure ulcer is an area of skin that breaks down when you stay in one position too long. The constant pressure against the skin reduces the blood flow to that area and the affected tissue dies. CAUSES: "Being bedridden or in a wheelchair "Fragile skin "Having a chronic condition, such as diabetes or vascular disease "Inability to move certain parts of your body without assistance "Older age "Incontinence of urine or stool SYMPTOMS: "A reddened area that DOES NOT turn white when pressed on - this can be the beginning of a pressure ulcer "A blister, deep sore or a crater - these can be advanced pressure ulcers FIRST AID: "Relieve the pressure on this area "Keep the area clean and dry "Call your primary doctor if you see any of the above symptoms "DO NOT massage the area "DO NOT use a donut shaped or ring shaped pillow- these actually interfere with the blood flow and cause complications PREVENTION: "Check for pressure ulcers everyday "Change position at least every two hours to relieve pressure "Use items that help relieve pressure- pillows, sheepskin, foam padding, and powders. "Keep skin clean and dry "Eat healthy well balanced meals "Exercise daily IF YOU SEE ANY OF THESE SYMPTOMS WHILE IN THE HOSPITAL - TELL YOUR NURSE IMMEDIATELY. IF YOU SEE ANY OF THESE SYMPTOMS WHILE AT HOME OR HAVE ANY QUESTIONS OR CONCERNS ABOUT PRESSURE ULCERS - CALL YOUR PRIMARY DOCTOR IMMEDIATELY. Addendum: 01/19/19 at 1422 by Priscilla Rivera RN Amended: Links added.
--- NOTE | 2019-01-19 16:36 | NUR ---
NURSING PROGRESS REPORT: Legal hold: Voluntary Client on voluntary status for GD. Report received from ANUJ Smalls with use of SBAR. Why are they here: Pt. admitted for a mental health evaluation. His staff of the [facility] where in lives in [place] stated Mr. Turpin has been refusing to care for himself for the past week. According to staff, Mr. Turpin has not been eating or drinking, and has not been taking his medications. Per staff, Mr. Turpin has schizophrenia and has gone into catatonic states in the past associated with his diabetes. Mr. Turpin was seen at [facility] prior to this admission and prescribed antibiotics for possible pneumonia. Assessment What has happened this shift: Pt in his bed at start of shift. Accu check completed; morning Accu check 264, Patient given his morning medications with applesauce. Patient up for meals then walked the halls a few times using his walker. Pt has been communicating with staff talking about his "Starfish" during group engaging in other conversations as well. Wound Care nurse here changed dressings, applied ordered creams and spray and wrote new orders. Noon Accu check 286 insulin given prior to each meal. S/I, H/I: Unable to assess A/VH: Unable to assess. Sleep: Brief naps between meals or groups ADL's: Pt uses a FWW Group attendance: Yes Were Meds taken: Yes Any med S/E: None reported or observed. Mental Status Exam Appearance: Nicely groomed; wearing green unit scrubs Eye contact: Fair Behavior: Cooperative, delayed Speech: Soft, minimal, slow Mood: Unable to assess Affect: blunted Thought process: Unable to assess Thought Content: Unable to assess Cognition: A&O to self and place (knew he was in [place]) Insight: Unable to assess Judgment: Unable to assess Interventions PRN's used: none Therapeutic interventions: 1:1 therapeutic assessment, encouraged compliance with accu checks and medications as well as prompted to attend groups, medication administration/education/monitoring, provided clear/simple instructions, Q15 min safety checks. Restraints/seclusion/emergency medication: N/A Justification of Continued Inpatient Treatment: Pt is gravely disabled and needs therapeutic support and medication management to provide stabilization. Addendum: 01/19/19 at 1814 by Shirin Tyler RN Cleared the red for wound care #1 dated 01/16 Addendum: 01/19/19 at 1821 by Shirin Tylre RN Pt refused kavon insulin held per orders
[2019-01-19] MEDS: Melatonin 3mg tablet PO SCH (19:55)
[2019-01-19 20:00] VITALS: BP 148/67
[2019-01-19] MEDS: insulin glargine (Lantus) pen - multi-dose SQ SCH (20:04)
--- NOTE | 2019-01-20 01:30 | NUR ---
Nursing Progress Note: Legal hold: Voluntary Client on voluntary status for GD. Report received from ANUJ Park with use of SBAR. Why are they here: Pt. admitted for a mental health evaluation. The staff of the [facility] where he lives in [place] stated Mr. Turpin has been refusing to care for himself for the past week. According to staff, Mr. Turpin has not been eating or drinking, and has not been taking his medications. Per staff, Mr. Turpin has Schizophrenia and has gone into catatonic states in the past associated with his diabetes. Mr. Turpin was seen at [facility] prior to this admission and prescribed antibiotics for possible pneumonia. Assessment What has happened this shift: The patient was seen finishing dinner in the Group room. It took him a while to get going, but he ate pretty quickly once he started. When he finished eating, the patient came to me and asked for his medication. The patient continues to respond to medication, and has been communicating better with staff. The patient was given HS meds then he went to bed. S/I, H/I: Unable to assess A/VH: Unable to assess. Sleep: Brief naps between meals or groups ADL's: Pt uses a FWW Group attendance: No groups at night Were Meds taken: Yes Any med S/E: None reported or observed. Mental Status Exam Appearance: Nicely groomed; wearing green unit scrubs Eye contact: Fair Behavior: Cooperative, delayed Speech: Delayed, thought blocking. Mood: Unable to assess Affect: blunted Thought process: Unable to assess Thought Content: Unable to assess Cognition: A&O to self and place (knew he was in [place]) Insight: Unable to assess Judgment: Unable to assess Interventions PRN's used: none Therapeutic interventions: 1:1 therapeutic assessment, encouraged compliance with accu checks and medications as well as prompted to attend groups, medication administration/education/monitoring, provided clear/simple instructions, Q15 min safety checks. Restraints/seclusion/emergency medication: N/A Justification of Continued Inpatient Treatment: Pt is gravely disabled and needs therapeutic support and medication management to provide stabilization.
[2019-01-20] MEDS: mesalamine 1.2gm ER tablet PO SCH ×3 (07:00→17:45)
[2019-01-20] MEDS ORDERED: insulin regular, human vial - multi-dose SQ ONE (07:20)
[2019-01-20 08:00] VITALS: BP 115/73
[2019-01-20] MEDS: cyanocobalamin 500mcg tablet PO SCH (08:00)
[2019-01-20] MEDS: multivitamins, therapeutics tablet PO SCH (08:00)
[2019-01-20] MEDS: pantoprazole 40mg Tablet.DR PO SCH (08:00)
[2019-01-20] MEDS: aspirin 81mg tablet.DR PO SCH (08:00)
[2019-01-20] MEDS: lactobacillus rhamnosus 10,000 MMU CELLS/CAPSULE PO SCH ×2 (08:00→20:59)
[2019-01-20] MEDS: magnesium oxide 400mg tablet PO SCH (08:00)
[2019-01-20] MEDS: docusate sod 100mg capsule PO SCH ×2 (08:00→20:59)
[2019-01-20] MEDS: tamsulosin 0.4mg capsule PO SCH (08:00)
--- NOTE | 2019-01-20 11:04 | NUR ---
DISCHARGE PLANNING: MABEL ingram/Awilda at [facility] asking where to make f/u appointments
[2019-01-20] MEDS: divalproex sod 250mg ER (24-hour) tablet PO SCH (11:20)
[2019-01-20] MEDS: FLUoxetine 20mg capsule PO SCH (11:20)
[2019-01-20] MEDS: LORazepam 0.5 MG tablet PO SCH ×3 (11:20→21:02)
[2019-01-20] MEDS: insulin regular, human vial - multi-dose SQ SCH ×2 (12:59→17:00)
--- NOTE | 2019-01-20 17:16 | NUR ---
NURSING PROGRESS REPORT: Legal hold: Voluntary Client on voluntary status for GD. Report received from ANUJ Smalls with use of SBAR. Why are they here: Pt. admitted for a mental health evaluation. His staff of the [facility] where in lives in [place] stated Mr. Turpin has been refusing to care for himself for the past week. According to staff, Mr. Turpin has not been eating or drinking, and has not been taking his medications. Per staff, Mr. Turpin has schizophrenia and has gone into catatonic states in the past associated with his diabetes. Mr. Turpin was seen at [facility] prior to this admission and prescribed antibiotics for possible pneumonia. Assessment What has happened this shift: Pt woke for v/s and blood sugar, but then became resistive to everything and seemed upset. Pt would not get up on his own for the bathroom was visibly upset. Pt was escorted to the bathroom and drsg changed on his coccyx. Pt placed in wheelchair and brought to breakfast. Pt refused breakfast. After being left alone for a couple of hours, pt agreeable to take am psych meds and seemed more agreeable. Pt was compliant with meds throughout the day, but refused lunch even after tech attempted to help. Provider spoke with pt and seems like he got up when tech touched him this morning to get his vital signs. S/I, H/I: Unable to assess A/VH: Unable to assess. Sleep: Brief naps between meals or groups ADL's: Pt uses a FWW Group attendance: Yes Were Meds taken: Yes Any med S/E: None reported or observed. Mental Status Exam Appearance: Nicely groomed; wearing green unit scrubs Eye contact: Fair Behavior: Cooperative, delayed Speech: Soft, minimal, slow Mood: Unable to assess Affect: blunted Thought process: Unable to assess Thought Content: Unable to assess Cognition: A&O to self and place (knew he was in [place]) Insight: Unable to assess Judgment: Unable to assess Interventions PRN's used: none Therapeutic interventions: 1:1 therapeutic assessment, encouraged compliance with accu checks and medications as well as prompted to attend groups, medication administration/education/monitoring, provided clear/simple instructions, Q15 min safety checks. Restraints/seclusion/emergency medication: N/A Justification of Continued Inpatient Treatment: Pt is gravely disabled and needs therapeutic support and medication management to provide stabilization.
[2019-01-20 20:00] VITALS: BP 156/80
[2019-01-20] MEDS: Melatonin 3mg tablet PO SCH (20:59)
[2019-01-20] MEDS: insulin glargine (Lantus) pen - multi-dose SQ SCH (21:00)
--- NOTE | 2019-01-21 04:14 | NUR ---
NURSING PROGRESS REPORT: Legal hold: Voluntary Client on voluntary status for GD. Report received from ANUJ Orellana with use of SBAR. Why are they here: Pt. admitted for a mental health evaluation. His staff of the [facility] residence he lives at in [place] stated Mr. Turpin has been refusing to care for himself for the past week. According to staff, Mr. Turpin has not been eating or drinking, and has not been taking his medications. Per staff, Mr. Turpin has schizophrenia and has gone into catatonic states in the past associated with his diabetes. Mr. Turpin was seen at [facility] prior to this admission and prescribed antibiotics for possible pneumonia. Assessment What has happened this shift: Patient in the group room with PCT assisting patient to eat his dinner at the beginning of shift. He refused to eat dinner and also refused HS snack. Patient's HS BG 98 and scheduled Lantus held per doctor. Patient continues to be toileted by staff and q2h repositioning by staff. Heels in protective booties. Patient non verbal with this writer editor, starring with intense eye contact when asked questions. Patient compliant with medications. S/I, H/I: Unable to assess, no unsafe behaviors noted A/VH: Pt is nonverbal, no indications of response to internal stimuli Sleep: asleep at this time ADL's: Pt needs a one person assist with all ADLs. He responds well to task orientation and is able to follow simple 1 to 2 step commands. He is a total assist with feeding, so far, he will not even hold a cup in his hand. He requires prompting and stand by assist for transfers, toileting and ambulation, he needs help with wiping. If he is not toileted routinely, he is incontinent of bowel and bladder, he is nonverbal and unable to make his needs known at this time. Group attendance:no groups this shift Were meds taken: Yes Any med S/E: None observed Mental Status Exam Appearance: Slow moving, nonverbal elderly gentleman with dentures and cropped white hair dressed in green hospital scrubs. Eye contact: intense Behavior: agitated, isolative Speech: Non verbal Mood: appears irritable Affect: congruent to mood Thought process: Unable to assess Thought Content: Unable to assess Cognition: Unable to assess though pt responds to his name, seems to be at least A/O X 1 Insight: Unable to assess Judgment: Unable to assess Interventions PRN's used: None Therapeutic interventions: 1:1 assessment, task orientation; simple 1 to 2 step directions, positive reinforcement, swallow precautions, fall precautions, one person assist with ambulation, toileting, bathing, and feeding, medication administration/monitoring/education, routine toileting, Q15 min safety checks. Restraints/seclusion/emergency medication: N/A Justification of Continued Inpatient Treatment: Pt has a history of catatonic episodes, he is currently nonverbal and gravely disabled. He needs therapeutic support and medication management to provide stabilization and return to baseline level of function. If pt does not return to previous baseline level of functioning, he may need a higher level of care.
[2019-01-21] MEDS: mesalamine 1.2gm ER tablet PO SCH ×3 (07:00→17:00)
[2019-01-21] MEDS: insulin regular, human vial - multi-dose SQ SCH ×3 (07:00→17:33)
[2019-01-21 08:00] VITALS: BP 146/69
[2019-01-21] MEDS: docusate sod 100mg capsule PO SCH ×2 (08:00→21:03)
[2019-01-21] MEDS: aspirin 81mg tablet.DR PO SCH (08:00)
[2019-01-21] MEDS: lactobacillus rhamnosus 10,000 MMU CELLS/CAPSULE PO SCH ×2 (08:00→21:03)
[2019-01-21] MEDS: pantoprazole 40mg Tablet.DR PO SCH (08:00)
[2019-01-21] MEDS: multivitamins, therapeutics tablet PO SCH (08:00)
[2019-01-21] MEDS: LORazepam 0.5 MG tablet PO SCH ×3 (08:00→21:03)
[2019-01-21] MEDS: magnesium oxide 400mg tablet PO SCH (08:00)
[2019-01-21] MEDS: cyanocobalamin 500mcg tablet PO SCH (08:00)
[2019-01-21] MEDS: tamsulosin 0.4mg capsule PO SCH (09:46)
[2019-01-21] MEDS: FLUoxetine 20mg capsule PO SCH (09:46)
[2019-01-21] MEDS: divalproex sod 250mg ER (24-hour) tablet PO SCH (09:46)
[2019-01-21] MEDS: JUVEN Shake w/Arg/Glut/Ca2+Bmb (Juven 19.3gm) pkt 240ml PO SCH (12:30)
--- NOTE | 2019-01-21 13:27 | NUR ---
Nutrition consult re: patient refusing to eat. Per documentation is eating 75-100% of pureed, carb controlled meals. Spoke with bedside RN, reports that patient did not eat breakfast this morning or any meals yesterday. Per MD note pt reports that he doesn't have an appetite. Patient is also refusing medications. Recommend Glucerna with meals while patient's appetite is poor. Pressure area to coccyx is improving per RN. Will continue to follow. Recommendations: 1) Continue pureed/thin/CHO controlled diet per ENTRY PROCESSOR recs 2) Glucerna with meals 3) Routine bowel care 4) Weekly wt Addendum: 01/21/19 at [address] Amended: Links added.
[2019-01-21] MEDS: pregabalin 75mg capsule PO PRN (16:04)
--- NOTE | 2019-01-21 17:00 | NUR ---
NURSING PROGRESS REPORT: Legal hold: Voluntary Client on voluntary status for GD. Report received from ANUJ Smalls with use of SBAR. Why are they here: Pt. admitted for a mental health evaluation. His staff of the [facility] residence he lives at in [place] stated Mr. Turpin has been refusing to care for himself for the past week. According to staff, Mr. Turpin has not been eating or drinking, and has not been taking his medications. Per staff, Mr. Turpin has schizophrenia and has gone into catatonic states in the past associated with his diabetes. Mr. Turpin was seen at [facility] prior to this admission and prescribed antibiotics for possible pneumonia. Assessment What has happened this shift: The patient was asleep at change of shift. He was cranky and unreasonable this morning and early afternoon. He refused to eat breakfast or lunch even with much encouragement and help. Insulin was held. He stayed up all morning and throughout the lunch period. He was then returned to his bed to rest and admitted to nurse he was having pain "all over" when offered medication he stated, "why, it won't help". He was given lyrica prn and was then able to rest, he was repositioned as ordered and all dressing changes were completed, heels floated, turned, etc. He allowed nurse to hold his hand and comfort him this afternoon. S/I, H/I: Unable to assess, no unsafe behaviors noted A/VH: no indications of response to internal stimuli Sleep: napped ADL's: Pt needs a one person assist with all ADLs. He responds well to task orientation and is able to follow simple 1 to 2 step commands. He is a total assist with feeding, so far, he will not even hold a cup in his hand. He requires prompting and stand by assist for transfers, toileting and ambulation, he needs help with wiping. Group attendance: yes x1 Were meds taken: pysch meds only Any med S/E: None observed Mental Status Exam Appearance: Slow moving, nonverbal elderly gentleman with dentures and cropped white hair dressed in green hospital scrubs. Eye contact: intense Behavior: agitated, isolative Speech: Non verbal Mood: appears irritable Affect: congruent to mood Thought process: Unable to assess Thought Content: Unable to assess Cognition: Unable to assess though pt responds to his name, seems to be at least A/O X 1 Insight: Unable to assess Judgment: Unable to assess Interventions PRN's used: christian Therapeutic interventions: 1:1 assessment, task orientation; simple 1 to 2 step directions, positive reinforcement, swallow precautions, fall precautions, one person assist with ambulation, toileting, bathing, and feeding, medication administration/monitoring/education, routine toileting, Q15 min safety checks. Restraints/seclusion/emergency medication: N/A Justification of Continued Inpatient Treatment: Pt has a history of catatonic episodes, he is currently nonverbal and gravely disabled. He needs therapeutic support and medication management to provide stabilization and return to baseline level of function. If pt does not return to previous baseline level of functioning, he may need a higher level of care.
[2019-01-21 19:55] VITALS: BP 134/72
[2019-01-21] MEDS: Melatonin 3mg tablet PO SCH (21:03)
[2019-01-21] MEDS: insulin glargine (Lantus) pen - multi-dose SQ SCH (21:10)
--- NOTE | 2019-01-22 00:36 | NUR ---
NURSING PROGRESS REPORT: Legal hold: Voluntary Client on voluntary status for GD. Report received from FRANK Morris with use of SBAR. Why are they here: Pt. admitted for a mental health evaluation. His staff of the [facility] residence he lives at in [place] stated Mr. Turpin has been refusing to care for himself for the past week. According to staff, Mr. Turpin has not been eating or drinking, and has not been taking his medications. Per staff, Mr. Turpin has schizophrenia and has gone into catatonic states in the past associated with his diabetes. Mr. Turpin was seen at [facility] prior to this admission and prescribed antibiotics for possible pneumonia. Assessment What has happened this shift: Patient is up in group room at change of shift watching TV and finishing his milk from dinner. Patient ate 100% of his dinner this evening. He was cooperative with staff this evening but not very verbal, but did answer questions minimally, when it came to his comfort when being repositioned in bed. After finishing his milk patient was helped to his room were he was placed on the toilet so that he may use it before going to bed, benjamin care provided, an assessment completed and patient helped into and positioned in bed on his left side with his heels floated. Patients dressing to his R. foot was changed 01/21 and is CDI, patients dressing to his coccyx was changed 01/21 and was CDI. Patients HS CBG was 366 his Lantus 15 units was administered as ordered this evening. Patient is repositioned in bed Q2H this evening as ordered. S/I, H/I: Unable to assess, no unsafe behaviors noted A/VH: No indications of response to internal stimuli Sleep: Currently sleeping, see sleep assessment ADL's: Pt needs a one person assist with all ADLs. He responds well to task orientation and is able to follow simple 1 to 2 step commands. He is a total assist with feeding, so far, he will not even hold a cup in his hand. He requires prompting and stand by assist for transfers, toileting and ambulation, he needs help with wiping. Group attendance: No groups this shift Were meds taken: Yes Any med S/E: None observed Mental Status Exam Appearance: Slow moving, nonverbal elderly gentleman with dentures and cropped white hair dressed in green hospital scrubs. Eye contact: Stare Behavior: Isolative, minimal vocal responses Speech: Minimal, to none Mood: Appears depressed Affect: Congruent to mood Thought process: Unable to assess Thought Content: Unable to assess Cognition: Unable to assess though pt responds to his name, seems to be at least A/O X 1 Insight: Unable to assess Judgment: Unable to assess Interventions PRN's used: None Therapeutic interventions: 1:1 assessment, task orientation; simple 1 to 2 step directions, positive reinforcement, swallow precautions, fall precautions, one person assist with ambulation, toileting, bathing, and feeding, medication administration/monitoring/education, routine toileting, Q15 min safety checks. Restraints/seclusion/emergency medication: N/A Justification of Continued Inpatient Treatment: Pt has a history of catatonic episodes, he is currently nonverbal and gravely disabled. He needs therapeutic support and medication management to provide stabilization and return to baseline level of function. If pt does not return to previous baseline level of functioning, he may need a higher level of care.
[2019-01-22] MEDS: mesalamine 1.2gm ER tablet PO SCH ×3 (07:54→17:51)
[2019-01-22] MEDS: cyanocobalamin 500mcg tablet PO SCH (07:54)
[2019-01-22] MEDS: FLUoxetine 20mg capsule PO SCH (07:54)
[2019-01-22] MEDS: aspirin 81mg tablet.DR PO SCH (07:54)
[2019-01-22] MEDS: docusate sod 100mg capsule PO SCH ×2 (07:55→21:18)
[2019-01-22] MEDS: LORazepam 0.5 MG tablet PO SCH ×3 (07:55→21:18)
[2019-01-22] MEDS: pantoprazole 40mg Tablet.DR PO SCH (07:55)
[2019-01-22] MEDS: magnesium oxide 400mg tablet PO SCH (07:55)
[2019-01-22] MEDS: divalproex sod 250mg ER (24-hour) tablet PO SCH (07:55)
[2019-01-22] MEDS: lactobacillus rhamnosus 10,000 MMU CELLS/CAPSULE PO SCH ×2 (07:55→21:18)
[2019-01-22] MEDS: multivitamins, therapeutics tablet PO SCH (07:56)
[2019-01-22 08:00] VITALS: BP 133/64
[2019-01-22] MEDS: insulin regular, human vial - multi-dose SQ SCH ×3 (08:16→17:49)
[2019-01-22] MEDS: tamsulosin 0.4mg capsule PO SCH (08:18)
[2019-01-22] MEDS: JUVEN Shake w/Arg/Glut/Ca2+Bmb (Juven 19.3gm) pkt 240ml PO SCH ×3 (10:42→17:59)
--- NOTE | 2019-01-22 16:34 | NUR ---
NURSING PROGRESS REPORT: Legal hold: Voluntary Client on voluntary status for GD. Report received from FRANK Camacho with use of SBAR. Why are they here: Pt. admitted for a mental health evaluation. His staff of the [facility] residence he lives at in [place] stated Mr. Turpin has been refusing to care for himself for the past week. According to staff, Mr. Turpin has not been eating or drinking, and has not been taking his medications. Per staff, Mr. Turpin has schizophrenia and has gone into catatonic states in the past associated with his diabetes. Mr. Turpin was seen at [facility] prior to this admission and prescribed antibiotics for possible pneumonia. Assessment What has happened this shift: Patient was being assisted to bathroom on first introduction this morning. He was cooperative with staff and initially not very verbal. Patient seems to be steadier than previously observed. Encouraged toileting every 1-2 hours with position changes. Ambulated to community room with standby assist. Ate 100% of meal with assistance. Patient's dressing to his L. foot and coccyx were evaluated by wound care nurse and are CDI. Patients BG was 149 before breakfast. Patient showered with assistance, dressing removed from left heel per wound care and coccyx dressing changed per order. Patient ambulated via FWW with standby assist to community room and engaged in a game with PCT. After winning [employer], this senior medical writer advised patient he could probably feed himself lunch, which he did and ate 100%. Stayed in community room following lunch and continued to play Better[employer] and connect four with staff. After being out of bed for approximately 3 hours, patient requested to return for a nap. Boots applied to bilateral feet, turned to right side. Evaluated by hospitalist, IS ordered Q1H while awake. S/I, H/I: Denies A/VH: No indications of response to internal stimuli Sleep: 9 ADL's: Showered with standby assist, reported to have been unsteady in shower. Group attendance: No Were meds taken: Yes Any med S/E: None observed Mental Status Exam Appearance: Slow moving, showered, cropped white hair dressed in green hospital scrubs. Eye contact: direct at times Behavior: engaged in limited conversation with PCT and assigned RN Speech: Slow, soft, deliberate Mood: Appears depressed with some brightening Affect: Congruent to mood Thought process: Linear Thought Content: tasks on the unit, enjoys winning games Cognition: Unable to assess though pt responds to his name, seems to be at least A/O X 1 Insight: Unable to assess Judgment: Unable to assess Interventions PRN's used: None Therapeutic interventions: 1:1 assessment, task orientation; simple 1 to 2 step directions, positive reinforcement, swallow precautions, fall precautions, one person assist with ambulation, toileting, bathing, and feeding, medication administration/monitoring/education, routine toileting, Q15 min safety checks. Restraints/seclusion/emergency medication: N/A Justification of Continued Inpatient Treatment: Pt has a history of catatonic episodes, he is currently nonverbal and gravely disabled. He needs therapeutic support and medication management to provide stabilization and return to baseline level of function. If pt does not return to previous baseline level of functioning, he may need a higher level of care.
[2019-01-22 19:00] VITALS: BP 158/66
[2019-01-22] MEDS: Melatonin 3mg tablet PO SCH (21:18)
[2019-01-22] MEDS: pregabalin 75mg capsule PO PRN (21:18)
[2019-01-22] MEDS: insulin glargine (Lantus) pen - multi-dose SQ SCH (21:23)
[2019-01-22] MEDS ORDERED: MESSAGE TO PHARMACY PO ONE (21:30)
[2019-01-22] MEDS: insulin Lispro (HumaLOG) vial - multi-dose SQ SCH (21:57)
--- NOTE | 2019-01-23 03:47 | NUR ---
NURSING PROGRESS REPORT: Legal hold: Voluntary Client on voluntary status for GD. Report received from FRANK Orellana with use of SBAR. Why are they here: Pt. admitted for a mental health evaluation. His staff of the [facility] residence he lives at in [place] stated Mr. Turpin has been refusing to care for himself for the past week. According to staff, Mr. Turpin has not been eating or drinking, and has not been taking his medications. Per staff, Mr. Turpin has schizophrenia and has gone into catatonic states in the past associated with his diabetes. Mr. Turpin was seen at [facility] prior to this admission and prescribed antibiotics for possible pneumonia. Assessment What has happened this shift: Patient ambulating in hallway with FFW at change of shift. Gait appears steady with FFW and no difficulty ambulating is noted. Patient requests to use toilet at this time patient is watched while he ambulates and places himself on the toilet and then given privacy. Patient reports he is done and is observed getting up, and then ambulates with his FFW to his sink he is instructed to wash his hands which he does. He requests help taking his dentures out. Patient helps removes dentures and helps staff provide oral care, then he ambulates to his bedside where an assessment is done. Patients dressing to coccyx is CDI and dated 01/22, heel dressing are removed but no noticeable breakdown to bilateral heels is noted. He gets into bed and verbalizes that he needs to lay on his side this time, and he roles to his left side in bed. He is assisted to a comfortable position and booties are applied to float heels/feet. A while later patient notices staff passing his room and he requests standby assistance so he may use the restroom. He reports that his favorite part of the day at this time was seeing his [facility] worker. He then uses the restroom goes back to bed and lays on his right side. Patients booties is then placed on his heels. Patient is turned Q2h this evening, but is noted to be turning in bed independently this evening as well. He is complaint with HS medications. S/I, H/I: Denies A/VH: No indications of response to internal stimuli Sleep: See sleep assessment ADL's: With assistance Group attendance: No group this shift. Were meds taken: Yes Any med S/E: None observed Mental Status Exam Appearance: Slow moving, showered, cropped white hair dressed in green hospital scrubs. Eye contact: Direct Behavior: Engaged in limited conversation with PCT and assigned RN Speech: Slow, soft, deliberate Mood: Bright Affect: Congruent to mood Thought process: Linear Thought Content: ADL's, turning himself in bed Cognition: Alert to self and place Insight: Unable to assess Judgment: Unable to assess Interventions PRN's used: None Therapeutic interventions: 1:1 assessment, task orientation; simple 1 to 2 step directions, positive reinforcement, swallow precautions, fall precautions, one person assist with ambulation, toileting, bathing, and feeding, medication administration/monitoring/education, routine toileting, Q15 min safety checks. Restraints/seclusion/emergency medication: N/A Justification of Continued Inpatient Treatment: Pt has a history of catatonic episodes, he is currently nonverbal and gravely disabled. He needs therapeutic support and medication management to provide stabilization and return to baseline level of function. If pt does not return to previous baseline level of functioning, he may need a higher level of care.
[2019-01-23] MEDS: aspirin 81mg tablet.DR PO SCH (07:35)
[2019-01-23] MEDS: lactobacillus rhamnosus 10,000 MMU CELLS/CAPSULE PO SCH ×2 (07:35→21:11)
[2019-01-23] MEDS: LORazepam 0.5 MG tablet PO SCH ×3 (07:35→21:12)
[2019-01-23] MEDS: magnesium oxide 400mg tablet PO SCH (07:35)
[2019-01-23] MEDS: mesalamine 1.2gm ER tablet PO SCH ×3 (07:35→17:38)
[2019-01-23] MEDS: docusate sod 100mg capsule PO SCH ×2 (07:36→21:11)
[2019-01-23] MEDS: pantoprazole 40mg Tablet.DR PO SCH (07:36)
[2019-01-23] MEDS: tamsulosin 0.4mg capsule PO SCH (07:36)
[2019-01-23] MEDS: FLUoxetine 20mg capsule PO SCH (07:37)
[2019-01-23] MEDS: cyanocobalamin 500mcg tablet PO SCH (07:37)
[2019-01-23] MEDS: multivitamins, therapeutics tablet PO SCH (07:37)
[2019-01-23] MEDS: divalproex sod 250mg ER (24-hour) tablet PO SCH (07:44)
[2019-01-23 08:00] VITALS: BP 104/68
[2019-01-23] MEDS: NUT.TX.GLUC.INTOLER,LAC-FR,SOY (GLUCERNA) 237 ML PO SCH ×3 (08:00→17:37)
[2019-01-23] MEDS: insulin Lispro (HumaLOG) vial - multi-dose SQ SCH ×3 (08:41→18:03)
[2019-01-23] MEDS: pregabalin 75mg capsule PO PRN ×2 (11:33→21:12)
[2019-01-23] MEDS: JUVEN Shake w/Arg/Glut/Ca2+Bmb (Juven 19.3gm) pkt 240ml PO SCH ×2 (12:58→17:43)
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
[2019-01-23 19:25] VITALS: BP 140/93
[2019-01-23] MEDS: Melatonin 3mg tablet PO SCH (21:11)
[2019-01-23] MEDS ORDERED: insulin glargine (Lantus) pen - multi-dose SQ ONE (22:05)
--- NOTE | 2019-01-24 04:25 | NUR ---
NURSING PROGRESS REPORT: Legal hold: Voluntary Client on voluntary status for GD. Report received from FRANK Altamirano with use of SBAR. Why are they here: Pt. admitted for a mental health evaluation. His staff of the [facility] residence he lives at in [place] stated Mr. Turpin has been refusing to care for himself for the past week. According to staff, Mr. Turpin has not been eating or drinking, and has not been taking his medications. Per staff, Mr. Turpin has schizophrenia and has gone into catatonic states in the past associated with his diabetes. Mr. Turpin was seen at [facility] prior to this admission and prescribed antibiotics for possible pneumonia. Assessment What has happened this shift: Patient walking to room with his FWW at change of shift. He is helped into bed and rotates to his right side independently. He spends some time just chatting with this automobile service writer about his day. He reports it was a good day and that he would still like to go home. Later he got up and ate a snack in the group room with his peers watching a movie. when he was done patient was escorted to his room he used the restroom, his wound dressings were checked Coccyx dressing dated 01/23 and is CDI, dressing to left heel is CDI as well. Patient then washed his hands, did oral care and was helped into bed. Once in bed patients feet were placed in boots and he was turned Q2h. Patient rotates himself in bed, and when asked will roll from side to side when the time comes to be turned. Patient compliant with all HS medications. S/I, H/I: Denies A/VH: No indications of response to internal stimuli Sleep: See sleep assessment ADL's: With assistance/prompting Group attendance: No group this shift. Were meds taken: Yes Any med S/E: None observed Mental Status Exam Appearance: Slow moving, showered, cropped white hair dressed in green hospital scrubs. Eye contact: Direct Behavior: Engaged in conversation with PCT and assigned RN Speech: Slow, soft, deliberate Mood: Bright Affect: Congruent to mood Thought process: Linear Thought Content: ADL's, turning himself in bed, oral care, restroom use Cognition: Alert to self and place Insight: Unable to assess Judgment: Unable to assess Interventions PRN's used: None Therapeutic interventions: 1:1 assessment, task orientation; simple 1 to 2 step directions, positive reinforcement, swallow precautions, fall precautions, one person assist with ambulation, toileting, bathing, and feeding, medication administration/monitoring/education, routine toileting, Q15 min safety checks. Restraints/seclusion/emergency medication: N/A Justification of Continued Inpatient Treatment: Pt has a history of catatonic episodes, he is currently nonverbal and gravely disabled. He needs therapeutic support and medication management to provide stabilization and return to baseline level of function. If pt does not return to previous baseline level of functioning, he may need a higher level of care.
[2019-01-24] MEDS: pantoprazole 40mg Tablet.DR PO SCH (07:47)
[2019-01-24] MEDS: lactobacillus rhamnosus 10,000 MMU CELLS/CAPSULE PO SCH ×2 (07:47→20:20)
[2019-01-24] MEDS: mesalamine 1.2gm ER tablet PO SCH ×3 (07:48→17:45)
[2019-01-24] MEDS: magnesium oxide 400mg tablet PO SCH (07:48)
[2019-01-24] MEDS: aspirin 81mg tablet.DR PO SCH (07:48)
[2019-01-24] MEDS: tamsulosin 0.4mg capsule PO SCH (07:48)
[2019-01-24] MEDS: LORazepam 0.5 MG tablet PO SCH ×3 (07:48→20:23)
[2019-01-24] MEDS: cyanocobalamin 500mcg tablet PO SCH (07:48)
[2019-01-24] MEDS: FLUoxetine 20mg capsule PO SCH (07:48)
[2019-01-24] MEDS: multivitamins, therapeutics tablet PO SCH (07:48)
[2019-01-24] MEDS: divalproex sod 250mg ER (24-hour) tablet PO SCH (07:49)
[2019-01-24 08:00] VITALS: BP 120/60
[2019-01-24] MEDS: NUT.TX.GLUC.INTOLER,LAC-FR,SOY (GLUCERNA) 237 ML PO SCH (08:00)
[2019-01-24] MEDS: docusate sod 100mg capsule PO SCH ×2 (08:41→20:20)
[2019-01-24] MEDS: insulin Lispro (HumaLOG) vial - multi-dose SQ SCH ×3 (08:45→18:14)
--- NOTE | 2019-01-24 09:43 | NUR ---
reassessment: Pt PO improved to 75-100% meals/ONS increased appetite per MD note. LBM 01/23. Will continue to monitor. Recommendations: 1) Continue pureed/thin/CHO controlled diet per DEPUTY SHERIFF/INVESTIGATOR recs 2) Glucerna TID with meals 3) Routine bowel care 4) Weekly wt Addendum: 01/24/19 at [address] Amended: Links added.
[2019-01-24] MEDS: JUVEN Shake w/Arg/Glut/Ca2+Bmb (Juven 19.3gm) pkt 240ml PO SCH ×2 (12:30→13:30)
--- NOTE | 2019-01-24 18:45 | NUR ---
NURSING PROGRESS NOTE Legal hold: Voluntary Client on voluntary status for GD. Report received from Renetta Werner RN with use of SBAR. Why are they here: Pt. admitted for a mental health evaluation. His staff of the [facility] residence he lives at in [place] stated Mr. Turpin has been refusing to care for himself for the past week. According to staff, Mr. Turpin has not been eating or drinking, and has not been taking his medications. Per staff, Mr. Turpin has schizophrenia and has gone into catatonic states in the past associated with his diabetes. Mr. Turpin was seen at [facility] prior to this admission and prescribed antibiotics for possible pneumonia. Assessment What has happened this shift: Patient has been up in the group room most of the day. He shaved and got cleaned up this a.m. Pts BGM has been: 110, 90, 126. Pictures of wounds taken and redressed. Pt. has had a good sense of humor today: RN took his meds to him in group room and did not bring a med cup, so meds were put into his hand (2), which he swallowed. When he was done he said "you forgot the med cup". Patient is getting better every day as far as his mental health status and his diabetic control. Patient is feeding himself 100% of meals. S/I, H/I: Denies A/VH: No Sleep: 1 nap. ADL's: With assistance. Group attendance: Yes, movie group. Were meds taken: Yes Any med S/E: None observed Mental Status Exam Appearance: Slow moving, showered, short white hair dressed in green hospital scrubs. Eye contact: Direct Behavior: Engaged in limited conversation with PCT and assigned RN Speech: Slow, soft, deliberate Mood: Euthymic. Affect: Bright Thought process: Linear Thought Content: Family, returning to [facility] Cognition: Alert to self and place Insight: Fair Judgment: Fair Interventions PRN's used: None Therapeutic interventions: 1:1 assessment, task orientation; simple 1 to 2 step directions, positive reinforcement, swallow precautions, fall precautions, one person assist with ambulation, toileting, bathing, and feeding, medication administration/monitoring/education, routine toileting, Q15 min safety checks. Restraints/seclusion/emergency medication: N/A Justification of Continued Inpatient Treatment: Pt has a history of catatonic episodes, he is currently gravely disabled. He needs therapeutic support and medication management to provide stabilization and return to baseline level of function. If pt does not return to previous baseline level of functioning, he may need a higher level of care.
[2019-01-24 19:00] VITALS: BP 151/64
[2019-01-24] MEDS: Melatonin 3mg tablet PO SCH (20:21)
[2019-01-24] MEDS: insulin glargine (Lantus) pen - multi-dose SQ SCH (20:58)
--- NOTE | 2019-01-24 22:04 | NUR ---
NURSING PROGRESS NOTE Legal hold: Voluntary Client on voluntary status for GD. Report received from FRANK Bentley with use of SBAR. Why are they here: Pt. admitted for a mental health evaluation. His staff of the [facility] residence he lives at in [place] stated Mr. Turpin has been refusing to care for himself for the past week. According to staff, Mr. Turpin has not been eating or drinking, and has not been taking his medications. Per staff, Mr. Turpin has schizophrenia and has gone into catatonic states in the past associated with his diabetes. Mr. Turpin was seen at [facility] prior to this admission and prescribed antibiotics for possible pneumonia. Assessment What has happened this shift: Patient has been up in the group room most then waked to his room. Pts BGM has been: 110, 90, 126, 95. Pictures of wounds taken and redressed by day shift . Pt. has had a good sense of humor today: Patient is getting better every day as far as his mental health status and his diabetic control. Patient is feeding himself 100% of meals. Pt was able to state some of his meds and how much Lantus he receives. S/I, H/I: Denies A/VH: No Sleep: 1 nap. ADL's: With assistance. Group attendance: Yes, movie group. Were meds taken: Yes Any med S/E: None observed Mental Status Exam Appearance: Slow moving, showered, short white hair dressed in green hospital scrubs. Eye contact: Direct Behavior: Engaged in limited conversation with PCT and assigned RN Speech: Slow, soft, deliberate Mood: Euthymic. Affect: Bright Thought process: Linear Thought Content: Family, returning to [facility] Cognition: Alert to self and place Insight: Fair Judgment: Fair Interventions PRN's used: None Therapeutic interventions: 1:1 assessment, task orientation; simple 1 to 2 step directions, positive reinforcement, swallow precautions, fall precautions, one person assist with ambulation, toileting, bathing, and feeding, medication administration/monitoring/education, routine toileting, Q15 min safety checks. Restraints/seclusion/emergency medication: N/A Justification of Continued Inpatient Treatment: Pt has a history of catatonic episodes, he is currently gravely disabled. He needs therapeutic support and medication management to provide stabilization and return to baseline level of function. If pt does not return to previous baseline level of functioning, he may need a higher level of care.
[2019-01-25] MEDS: mesalamine 1.2gm ER tablet PO SCH ×3 (07:29→17:23)
[2019-01-25] MEDS: divalproex sod 250mg ER (24-hour) tablet PO SCH (07:36)
[2019-01-25] MEDS: FLUoxetine 20mg capsule PO SCH (07:37)
[2019-01-25] MEDS: aspirin 81mg tablet.DR PO SCH (07:37)
[2019-01-25] MEDS: magnesium oxide 400mg tablet PO SCH (07:37)
[2019-01-25] MEDS: cyanocobalamin 500mcg tablet PO SCH (07:37)
[2019-01-25] MEDS: pantoprazole 40mg Tablet.DR PO SCH (07:37)
[2019-01-25] MEDS: lactobacillus rhamnosus 10,000 MMU CELLS/CAPSULE PO SCH ×2 (07:37→20:30)
[2019-01-25] MEDS: multivitamins, therapeutics tablet PO SCH (07:38)
[2019-01-25] MEDS: LORazepam 0.5 MG tablet PO SCH ×3 (07:38→20:31)
[2019-01-25] MEDS: tamsulosin 0.4mg capsule PO SCH (07:38)
[2019-01-25] MEDS: docusate sod 100mg capsule PO SCH ×2 (07:39→20:30)
[2019-01-25 07:42] VITALS: BP 149/69
[2019-01-25 08:00] VITALS: BP 150/70
[2019-01-25] MEDS: insulin Lispro (HumaLOG) vial - multi-dose SQ SCH ×3 (08:48→18:09)
--- NOTE | 2019-01-25 15:12 | NUR ---
NURSING PROGRESS REPORT: Legal hold: Voluntary Client on voluntary status for GD. Report received from FRANK Jacobo with use of SBAR. Why are they here: Pt. admitted for a mental health evaluation. His staff of the [facility] residence he lives at in [place] stated Mr. Turpin has been refusing to care for himself for the past week. According to staff, Mr. Turpin has not been eating or drinking, and has not been taking his medications. Per staff, Mr. Turpin has schizophrenia and has gone into catatonic states in the past associated with his diabetes. Mr. Turpin was seen at [facility] prior to this admission and prescribed antibiotics for possible pneumonia. Assessment What has happened this shift: Sleeping soundly at change of shift. Awakened and assisted to the bathroom. Voided large amount. Engaged easily with staff. Smiling easily as staff made silly conversation with him. Medication compliant. Patient ambulated to community room with use of his walker and stand by assist. He was able to feed himself and consumed 100% of breakfast. Mood and affect marked improved since admission. Awake and alert. Able to tell staff when he is tired and needs to rest. Took himself to the bathroom for a large bowel movement. After lunch stated he was tired and needed to go to my bed. Slept soundly throughout the afternoon. S/I, H/I: Denies A/VH: No indications of response to internal stimuli Sleep: 7.75 ADL's: With assistance (no shower today) Group attendance: No Were meds taken: Yes Any med S/E: None observed Mental Status Exam Appearance: Slow moving, showered, cropped white hair dressed in green hospital scrubs. Eye contact: Direct Behavior: Engaged in limited conversation with PCT and assigned RN Speech: Slow, soft, deliberate Mood: Bright Affect: Congruent to mood Thought process: Linear Thought Content: Family, returning to [facility], new orders for BG treatment Cognition: Alert to self and place Insight: Fair Judgment: Fair Interventions PRN's used: Lyrica Therapeutic interventions: 1:1 assessment, task orientation; simple 1 to 2 step directions, positive reinforcement, swallow precautions, fall precautions, one person assist with ambulation, toileting, bathing, and feeding, medication administration/monitoring/education, routine toileting, Q15 min safety checks. Restraints/seclusion/emergency medication: N/A Justification of Continued Inpatient Treatment: Pt has a history of catatonic episodes, he is currently nonverbal and gravely disabled. He needs therapeutic support and medication management to provide stabilization and return to baseline level of function. If pt does not return to previous baseline level of functioning, he may need a higher level of care.
[2019-01-25] MEDS: JUVEN Shake w/Arg/Glut/Ca2+Bmb (Juven 19.3gm) pkt 240ml PO SCH (18:02)
[2019-01-25] MEDS: Melatonin 3mg tablet PO SCH (20:31)
[2019-01-25] MEDS: insulin glargine (Lantus) pen - multi-dose SQ SCH (20:45)
--- NOTE | 2019-01-25 23:58 | NUR ---
NURSING PROGRESS REPORT: Legal hold: Voluntary Client on voluntary status for GD. Report received from Galindo RN with use of SBAR. Why are they here: Pt. admitted for a mental health evaluation. His staff of the [facility] residence he lives at in [place] stated Mr. Turpin has been refusing to care for himself for the past week. According to staff, Mr. Turpin has not been eating or drinking, and has not been taking his medications. Per staff, Mr. Turpin has schizophrenia and has gone into catatonic states in the past associated with his diabetes. Mr. Turpin was seen at [facility] prior to this admission and prescribed antibiotics for possible pneumonia. Assessment What has happened this shift: Pt ambulating independently in reeves using a FWW at start of shift. Pt irritable at start of shift. Says he wants to go home. Sister and nephew visited pt became cheerful and cooperative rest of shit. Sister is talking pts previous caregivers and trying to arrange pt returning to previous living situation. Pt has improved dramatically he is able to perform ADLs with minimal assist. Pt continent of Bowel and bladder. Excused himself from group room to use bathroom completely independently. Eating 100% of meals. HS blood sugar 113. Drsing to sacrum and heel CD+I S/I, H/I: Denies A/VH: No indications of response to internal stimuli Sleep: Asleep at this time ADL's: With assistance (no shower today) Group attendance: No Were meds taken: Yes Any med S/E: None observed Mental Status Exam Appearance: Slow moving, showered, cropped white hair dressed in green hospital scrubs. Eye contact: Direct Behavior: Engaged in limited conversation with PCT and assigned RN Speech: Slow, soft, deliberate Mood: Bright Affect: Congruent to mood Thought process: Linear Thought Content: Family, returning to [facility], new orders for BG treatment Cognition: Alert to self and place Insight: Fair Judgment: Fair Interventions PRN's used: none Therapeutic interventions: 1:1 assessment, task orientation; simple 1 to 2 step directions, positive reinforcement, swallow precautions, fall precautions, one person assist with ambulation, toileting, bathing, and feeding, medication administration/monitoring/education, routine toileting, Q15 min safety checks. Restraints/seclusion/emergency medication: N/A Justification of Continued Inpatient Treatment: Pt has a history of catatonic episodes, he is currently nonverbal and gravely disabled. He needs therapeutic support and medication management to provide stabilization and return to baseline level of function. If pt does not return to previous baseline level of functioning, he may need a higher level of care.
[2019-01-26] MEDS: mesalamine 1.2gm ER tablet PO SCH ×3 (07:45→17:04)
[2019-01-26] MEDS: aspirin 81mg tablet.DR PO SCH (07:46)
[2019-01-26] MEDS: lactobacillus rhamnosus 10,000 MMU CELLS/CAPSULE PO SCH ×2 (07:46→20:41)
[2019-01-26] MEDS: tamsulosin 0.4mg capsule PO SCH (07:46)
[2019-01-26] MEDS: docusate sod 100mg capsule PO SCH ×2 (07:46→20:41)
[2019-01-26] MEDS: pantoprazole 40mg Tablet.DR PO SCH (07:47)
[2019-01-26] MEDS: magnesium oxide 400mg tablet PO SCH (07:47)
[2019-01-26] MEDS: multivitamins, therapeutics tablet PO SCH (07:48)
[2019-01-26] MEDS: divalproex sod 250mg ER (24-hour) tablet PO SCH (07:48)
[2019-01-26] MEDS: FLUoxetine 20mg capsule PO SCH (07:48)
[2019-01-26] MEDS: cyanocobalamin 500mcg tablet PO SCH (07:49)
[2019-01-26] MEDS: LORazepam 0.5 MG tablet PO SCH ×3 (07:49→20:41)
[2019-01-26 08:00] VITALS: BP 135/71
[2019-01-26] MEDS: insulin Lispro (HumaLOG) vial - multi-dose SQ SCH ×3 (08:27→18:03)
[2019-01-26] MEDS: JUVEN Shake w/Arg/Glut/Ca2+Bmb (Juven 19.3gm) pkt 240ml PO SCH ×2 (12:38→18:18)
--- NOTE | 2019-01-26 16:14 | NUR ---
NURSING PROGRESS REPORT: Buster Legal hold: Voluntary Client on voluntary status for GD. Report received from Galindo RN with use of SBAR. Why are they here: Pt. admitted for a mental health evaluation. His staff of the [facility] residence he lives at in [place] stated Mr. Turpin has been refusing to care for himself for the past week. According to staff, Mr. Turpin has not been eating or drinking, and has not been taking his medications. Per staff, Mr. Turpin has schizophrenia and has gone into catatonic states in the past associated with his diabetes. Mr. Turpin was seen at [facility] prior to this admission and prescribed antibiotics for possible pneumonia. Assessment What has happened this shift: Initially received client who was in bed with eyes closed. No somatic complaints during assessment and was compliant with medications. BS this am was 161 and appropriate coverage was given per orders. Client had a visit from his sister and her and ambulated in halls with their assistance. Client had a visit from [facility] insurance service representative and it appears as though they will accept client this . Client participated in meeting and was able to support his argument for discharge to his home. No signs of hyper or hypo glycemia noted this shift. S/I, H/I: Denies A/VH: No indications of response to internal stimuli Sleep: ADL's: With assistance (no shower today) Group attendance: No Were meds taken: Yes Any med S/E: None observed Mental Status Exam Appearance: Slow moving, showered, cropped white hair dressed in green hospital scrubs. Eye contact: Direct Behavior: Engaged in limited conversation with PCT and assigned RN Speech: Slow, soft, deliberate Mood: Bright Affect: Congruent to mood Thought process: Linear Thought Content: Family, returning to [facility], new orders for BG treatment Cognition: Alert to self and place Insight: Fair Judgment: Fair Interventions PRN's used: none Therapeutic interventions: 1:1 assessment, task orientation; simple 1 to 2 step directions, positive reinforcement, swallow precautions, fall precautions, one person assist with ambulation, toileting, bathing, and feeding, medication administration/monitoring/education, routine toileting, Q15 min safety checks. Restraints/seclusion/emergency medication: N/A Justification of Continued Inpatient Treatment: Pt has a history of catatonic episodes, he is currently nonverbal and gravely disabled. He needs therapeutic support and medication management to provide stabilization and return to baseline level of function. If pt does not return to previous baseline level of functioning, he may need a higher level of care.
[2019-01-26] MEDS: Melatonin 3mg tablet PO SCH (20:41)
[2019-01-26] MEDS: insulin glargine (Lantus) pen - multi-dose SQ SCH (20:44)
[2019-01-26 20:54] VITALS: BP 182/71
[2019-01-26 20:55] VITALS: BP 148/61
--- NOTE | 2019-01-26 22:09 | NUR ---
NURSING PROGRESS REPORT: Buster Legal hold: Voluntary Client on voluntary status for GD. Report received from FRANK Orellana with use of SBAR. Why are they here: Pt. admitted for a mental health evaluation. His staff of the [facility] residence he lives at in [place] stated Mr. Turpin has been refusing to care for himself for the past week. According to staff, Mr. Turpin has not been eating or drinking, and has not been taking his medications. Per staff, Mr. Turpin has schizophrenia and has gone into catatonic states in the past associated with his diabetes. Mr. Turpin was seen at [facility] prior to this admission and prescribed antibiotics for possible pneumonia. Assessment What has happened this shift: Pt was walking in the reeves at change of shift. Pt reports he had a good day, he is talkative with bright affect. Pt is happy he is going to be leaving soon. Pt spent evening visiting with his twin sister shannan. Pt reports his appetite is good, HS BG was 123. Pt requests to not wear his boots while sleeping stating he is up walking around more and heels are feeling better. S/I, H/I: Denies A/VH: No indications of response to internal stimuli Sleep: sleeps well at night. ADL's: With assistance Group attendance: No Were meds taken: Yes Any med S/E: None observed Mental Status Exam Appearance: Pt is clean and neat wearing hospital scrubs and a sweater Eye contact: Direct Behavior: pt is smiling engages with staff and his family during visitation Speech: Slow, soft, deliberate Mood: Bright Affect: Congruent to mood Thought process: Linear Thought Content: Family, returning to [facility], Cognition: a/o x4 Insight: Fair Judgment: Fair Interventions PRN's used: none Therapeutic interventions: 1:1 assessment, task orientation; simple 1 to 2 step directions, positive reinforcement, swallow precautions, fall precautions, one person assist with ambulation, toileting, bathing, and feeding, medication administration/monitoring/education, routine toileting, Q15 min safety checks. Restraints/seclusion/emergency medication: N/A Justification of Continued Inpatient Treatment: Pt has a history of catatonic episodes, he is currently nonverbal and gravely disabled. He needs therapeutic support and medication management to provide stabilization and return to baseline level of function. If pt does not return to previous baseline level of functioning, he may need a higher level of care.
[2019-01-27 08:00] VITALS: BP 154/76
[2019-01-27] MEDS: FLUoxetine 20mg capsule PO SCH (08:07)
[2019-01-27] MEDS: tamsulosin 0.4mg capsule PO SCH (08:07)
[2019-01-27] MEDS: lactobacillus rhamnosus 10,000 MMU CELLS/CAPSULE PO SCH ×2 (08:08→20:13)
[2019-01-27] MEDS: LORazepam 0.5 MG tablet PO SCH ×3 (08:08→20:12)
[2019-01-27] MEDS: magnesium oxide 400mg tablet PO SCH (08:08)
[2019-01-27] MEDS: pantoprazole 40mg Tablet.DR PO SCH (08:08)
[2019-01-27] MEDS: docusate sod 100mg capsule PO SCH ×2 (08:08→20:13)
[2019-01-27] MEDS: cyanocobalamin 500mcg tablet PO SCH (08:08)
[2019-01-27] MEDS: mesalamine 1.2gm ER tablet PO SCH ×3 (08:08→17:37)
[2019-01-27] MEDS: multivitamins, therapeutics tablet PO SCH (08:08)
[2019-01-27] MEDS: aspirin 81mg tablet.DR PO SCH (08:09)
[2019-01-27] MEDS: divalproex sod 250mg ER (24-hour) tablet PO SCH (08:11)
[2019-01-27] MEDS: insulin Lispro (HumaLOG) vial - multi-dose SQ SCH ×3 (08:40→18:11)
[2019-01-27] MEDS: JUVEN Shake w/Arg/Glut/Ca2+Bmb (Juven 19.3gm) pkt 240ml PO SCH ×2 (13:06→17:38)
--- NOTE | 2019-01-27 17:41 | NUR ---
NURSING PROGRESS REPORT Legal hold: Voluntary Client on voluntary status for GD. Report received from FRANK Smalls with use of SBAR. Why are they here: Pt. admitted for a mental health evaluation. His staff of the [facility] residence he lives at in [place] stated Mr. Turpin has been refusing to care for himself for the past week. According to staff, Mr. Turpin has not been eating or drinking, and has not been taking his medications. Per staff, Mr. Turpni has schizophrenia and has gone into catatonic states in the past associated with his diabetes. Mr. Turpin was seen at [facility] prior to this admission and prescribed antibiotics for possible pneumonia. Assessment What has happened this shift: The patient was asleep at change of shift. He was up to breakfast and in a happy mood, smiling and interacting with others. He remains a brittle diabetic but was maintained on the hyperglycemic protocol. He is eating 100% of his meals and supplements. He is moving his bowels and is able to ambulate freely on his own steadily with his walker. He has no suicidal thoughts and no hallucinations. States he is looking forward to going home tomorrow. S/I, H/I: Denies A/VH: No indications of response to internal stimuli Sleep: None ADL's: With assistance Group attendance: yes Were meds taken: Yes Any med S/E: None observed Mental Status Exam Appearance: Good, clean, dressed in scrubs and a sweater Eye contact: Direct Behavior: calm and interacting with others Speech: talkative Mood: Bright Affect: Congruent to mood Thought process: Linear Thought Content: Family, returning to [facility] Cognition: Alert to self and place Insight: Fair Judgment: Fair Interventions PRN's used: none Therapeutic interventions: 1:1 assessment, task orientation; simple 1 to 2 step directions, positive reinforcement, swallow precautions, fall precautions, one person assist with ambulation, toileting, bathing, and feeding, medication administration/monitoring/education, routine toileting, Q15 min safety checks. Restraints/seclusion/emergency medication: N/A Justification of Continued Inpatient Treatment: Pt has a history of catatonic episodes, he is currently nonverbal and gravely disabled. He needs therapeutic support and medication management to
[2019-01-27 20:00] VITALS: BP 117/56
[2019-01-27] MEDS: Melatonin 3mg tablet PO SCH (20:13)
[2019-01-27] MEDS: insulin glargine (Lantus) pen - multi-dose SQ SCH (20:16)
--- NOTE | 2019-01-28 04:36 | NUR ---
NURSING PROGRESS REPORT: Buster Legal hold: Voluntary Client on voluntary status for GD. Report received from FRANK Orellana with use of SBAR. Why are they here: Pt. admitted for a mental health evaluation. His staff of the [facility] residence he lives at in [place] stated Mr. Turpin has been refusing to care for himself for the past week. According to staff, Mr. Turpin has not been eating or drinking, and has not been taking his medications. Per staff, Mr. Turpin has schizophrenia and has gone into catatonic states in the past associated with his diabetes. Mr. Turpin was seen at [facility] prior to this admission and prescribed antibiotics for possible pneumonia. Assessment What has happened this shift: Pt was visible on the unit at change of shift. He was walking in the reeves, smiling. His HS BS was 170. PT states he is excited to go home. He has a bright affect and makes eye contact. Dressing is clean,dry,and intact. Pt requests to not wear his boots while sleeping stating he is up walking around more and heels are feeling better. Pt is woken up to ask if he needs to use the restroom, each time he wakes up and says he does not have to go. S/I, H/I: Denies A/VH: No indications of response to internal stimuli Sleep: sleeps well at night. ADL's: With assistance Group attendance: No Were meds taken: Yes Any med S/E: None observed Mental Status Exam Appearance: Pt is clean and neat wearing hospital scrubs and a sweater Eye contact: Direct Behavior: pt is smiling engages with staff and his family during visitation Speech: Slow, soft, deliberate Mood: Bright Affect: Congruent to mood Thought process: Linear Thought Content: Family, returning to [facility], Cognition: a/o x4 Insight: Fair Judgment: Fair Interventions PRN's used: none Therapeutic interventions: 1:1 assessment, task orientation; simple 1 to 2 step directions, positive reinforcement, swallow precautions, fall precautions, one person assist with ambulation, toileting, bathing, and feeding, medication administration/monitoring/education, routine toileting, Q15 min safety checks. Restraints/seclusion/emergency medication: N/A Justification of Continued Inpatient Treatment: Pt has a history of catatonic episodes, he is currently nonverbal and gravely disabled. He needs therapeutic support and medication management to provide stabilization and return to baseline level of function. If pt does not return to previous baseline level of functioning, he may need a higher level of care.
[2019-01-28] MEDS: magnesium oxide 400mg tablet PO SCH (08:00)
[2019-01-28] MEDS: divalproex sod 250mg ER (24-hour) tablet PO SCH (09:05)
[2019-01-28] MEDS: FLUoxetine 20mg capsule PO SCH (09:05)
[2019-01-28] MEDS: tamsulosin 0.4mg capsule PO SCH (09:06)
[2019-01-28] MEDS: multivitamins, therapeutics tablet PO SCH (09:06)
[2019-01-28] MEDS: mesalamine 1.2gm ER tablet PO SCH (09:06)
[2019-01-28] MEDS: pantoprazole 40mg Tablet.DR PO SCH (09:06)
[2019-01-28] MEDS: aspirin 81mg tablet.DR PO SCH (09:06)
[2019-01-28] MEDS: cyanocobalamin 500mcg tablet PO SCH (09:06)
[2019-01-28] MEDS: docusate sod 100mg capsule PO SCH (09:06)
[2019-01-28] MEDS: lactobacillus rhamnosus 10,000 MMU CELLS/CAPSULE PO SCH (09:06)
[2019-01-28] MEDS: JUVEN Shake w/Arg/Glut/Ca2+Bmb (Juven 19.3gm) pkt 240ml PO SCH (09:07)
[2019-01-28] MEDS: LORazepam 0.5 MG tablet PO SCH (09:07)
[2019-01-28] MEDS: insulin Lispro (HumaLOG) vial - multi-dose SQ SCH (09:28)
[2019-01-28] MEDS ORDERED: tamsulosin capsule PO (10:04)
[2019-01-28] MEDS ORDERED: FLUO20CA22 PO (10:04)
[2019-01-28] MEDS ORDERED: DIVA250T8 PO (10:04)
[2019-01-28] MEDS ORDERED: LORA0.5T PO (10:04)
--- NOTE | 2019-01-28 10:30 | NUR ---
DISCHARGE NOTE The patient was discharged today at 1030.He was picked up by care givers from [facility]. He left with all instructions, prescriptions, and belongings. The patient stated he was very happy to be going home and was looking forward to shopping for food and getting back into his daily routine. He had no suicidal thoughts and no hallucinations. He was escorted to the lobby by DONNY Noble.
== END 2019-01-28 10:30 | disposition home or self-care (01) | DRG 885 ==
LOC: ADULT MH 11:33
PROVIDERS: ADMIT Psychiatry & Neurology Psychiatry; ATTEND Psychiatry & Neurology Psychiatry
DX: F33.3 Major depressive disorder, recurrent, severe with psychotic symptoms (principal); E44.0 Moderate protein-calorie malnutrition; D64.9 Anemia, unspecified; K21.9 Gastro-esophageal reflux disease without esophagitis; E78.5 Hyperlipidemia, unspecified; E11.9 Type 2 diabetes mellitus without complications; J32.9 Chronic sinusitis, unspecified; L89.899 Pressure ulcer of other site, unspecified stage; I10 Essential (primary) hypertension; I25.10 Atherosclerotic heart disease of native coronary artery without angina pectoris; L89.159 Pressure ulcer of sacral region, unspecified stage; N40.0 Benign prostatic hyperplasia without lower urinary tract symptoms; Z79.4 Long term (current) use of insulin; Z79.82 Long term (current) use of aspirin; Z79.899 Other long term (current) drug therapy; Z86.14 Personal history of Methicillin resistant Staphylococcus aureus infection; Z91.14 Patient's other noncompliance with medication regimen; Z82.5 Family history of asthma and other chronic lower respiratory diseases; Z82.3 Family history of stroke; Z80.9 Family history of malignant neoplasm, unspecified
CPT/HCPCS: 36415; 70551; 71045; 71046; 80053; 80061; 80320; 82948; 83036; 84443; 85025; 87081; 92508; 92616; 97116; 97161; 97530; 99285; J1610; J1815; J2060; J7500

== ENCOUNTER 2019-06-11 19:26 | Emergency (ER) | payer MEDICARE, MEDICAID ==
[~2019-06-11] VITALS: Ht 175.3 cm; Wt 65.9 kg
[~2019-06-11 19:26] MED LIST changes: -ACET-76 PO; -DIVA125T31 PO; +DIVA250T8 PO; +DIVA500T9 PO; -EZET10TA21 PO; +EZET10TA6 PO; +FLUO-167 PO; +MELA3TAB64 PO; -TAMS0.4C32 PO; +tamsulosin capsule PO
--- NOTE | 2019-06-11 19:50 | NUR ---
Pt is calm and cooperative and caregiver from the home is at the bedside.
--- NOTE | 2019-06-11 20:48 | NUR ---
No change in condition. Continuing to monitor.
[2019-06-11 21:08] LABS: LYMPHOCYTES # (AUTO) 1.3 X10'3 (1.1-4.8); MEAN PLATELET VOLUME 9.3 FL (7.4-10.4); MONOCYTES # (AUTO) 0.7 X10'3 (0-0.9)
[2019-06-11 21:11] LABS: BASOPHILS % (AUTO) 0.6 % (0-1); EOSINOPHILS # (AUTO) 0.2 X10'3 (0-0.9); EOSINOPHILS % (AUTO) 2.8 % (0-6); HEMATOCRIT 49.8 % (42.0-52.0); HEMOGLOBIN 16.4 g/dl (14.0-17.9); LYMPHOCYTES % (AUTO) 15.8 % (21-51); MEAN CORPUSCULAR HEMOGLOBIN 28.4 PG (27.0-31.0); MEAN CORPUSCULAR HGB CONC 33.1 g/dL (33.0-36.5); MEAN CORPUSCULAR VOLUME 85.9 FL (78-98); MONOCYTES % (AUTO) 9.4 % (2-12); NEUTROPHILS # (AUTO) 5.7 X10'3 (1.8-7.7); NEUTROPHILS % (AUTO) 71.4 % (42-75); PLATELET COUNT 152 X10'3 (140-440); RED BLOOD COUNT 5.79 X10'6 (4.70-6.10); RED CELL DISTRIBUTION WIDTH 16.5 % (11.5-14.5); WHITE BLOOD COUNT 7.9 X10'3 (4.5-11.0)
--- NOTE | 2019-06-11 21:39 | NUR ---
Jia, lead of his senior living. [phone] Sheryl Scanlon, sister. [phone]
[2019-06-11 21:48] LABS: CLARITY,URINE CLEAR (Clear); COLOR,URINE YELLOW (Yellow); GLUCOSE, URINE NEGATIVE (Neg); KETONES,URINE NEGATIVE (Neg); LEUKOCYTE ESTERASE ,URINE NEGATIVE (Neg); NITRITES, URINE NEGATIVE (Neg); OCCULT BLOOD,URINE NEGATIVE (Neg); PROTEIN,URINE 30 mg/dl (Neg); UROBILINOGEN,URINE 0.2 E.U/dL (0.2-1.0)
--- NOTE | 2019-06-11 21:50 | NUR ---
Pt resting in a position of comfort, no change in condition.
[2019-06-11 21:57] LABS: UA COLLECTION TYPE CLN CATCH MIDSTREAM
[2019-06-11 21:58] LABS: BACTERIA,URINE NONE SEEN /HPF (Neg); RBC,URINE 0-2 /HPF (0-2); SQUAMOUS EPITHELIAL CELL,UR FEW /LPF (FEW); WBC,URINE NONE SEEN /HPF (0-4)
[2019-06-11 22:00] LABS: URINE AMPHETAMINE SCREEN NEGATIVE (Neg); URINE BARBITUATE SCREEN NEGATIVE (Neg); URINE BENZODIAZEPINES SCREEN NEGATIVE (Neg); URINE CANNABINOID SCREEN NEGATIVE (Neg); URINE COCAINE SCREEN NEGATIVE (Neg); URINE METHADONE SCREEN NEGATIVE (Neg); URINE OPIATE SCREEN NEGATIVE (Neg); URINE PHENCYCLIDINE SCREEN NEGATIVE (Neg)
[2019-06-11] MEDS ORDERED: ARIP20TA4 PO (22:04)
[2019-06-11] MEDS ORDERED: LORA-269 PO (22:04)
[2019-06-11] MEDS ORDERED: DIVA500T9 PO (22:04)
[2019-06-11] MEDS ORDERED: INSU100C10 SQ (22:04)
[2019-06-11 22:43] LABS: ACETAMINOPHEN < 2.0 UG/ML (10-30); ALANINE AMINOTRANSFERASE 62 U/L (12-78); ALBUMIN 2.5 G/DL (3.4-5.0); ALBUMIN/GLOBULIN RATIO 0.8 (1.1-1.5); ALKALINE PHOSPHATASE 122 IU/L (46-116); ANION GAP 4 (8-16); ASPARTATE AMINO TRANSFERASE 41 U/L (10-37); BILIRUBIN,TOTAL 0.3 MG/DL (0.1-1.0); BLOOD UREA NITROGEN 19 MG/DL (7-18); BUN/CREATININE RATIO 20.7 (5.4-32.0); CALCIUM 8.3 MG/DL (8.5-10.1); CHLORIDE 106 MMOL/L (99-107); CREATININE 0.92 MG/DL (0.60-1.10); ETHANOL < 0.010 GM/DL (0.0-0.010); GLUCOSE 237 MG/DL (70-104); POTASSIUM 4.6 MMOL/L (3.5-5.1); SODIUM 140 MMOL/L (135-145); TOTAL CARBON DIOXIDE 29.9 MMOL/L (24-32); TOTAL PROTEIN 5.5 G/DL (6.4-8.2); VALPROATE 6 UG/ML (50-100); eGFR 83 ML/MIN
--- NOTE | 2019-06-11 22:50 | NUR ---
Pt is resting comfortably on the gurney. Pt denies pain or other complaints. Sitter nearby.
[2019-06-11] MEDS ORDERED: nitroGLYCERIN 0.4mg SUBLingual tab SL PRN (23:40)
[2019-06-11] MEDS ORDERED: pregabalin 75mg capsule PO PRN (23:40)
[2019-06-11] MEDS ORDERED: Melatonin 3mg tablet PO SCH (23:45)
--- NOTE | 2019-06-11 23:47 | NUR ---
Chart faxed to [facility] office. [facility] Staff will not evaluate the patient until tomorrow am. Pt's caregiver from [facility] is in the room with the patient at this time.
[2019-06-11] MEDS ORDERED: divalproex sod 250mg ER (24-hour) tablet PO SCH ×2 (23:53→23:54)
[2019-06-11] MEDS ORDERED: insulin glargine (Lantus) pen - multi-dose SQ SCH (23:55)
[2019-06-12] MEDS: multivitamins, therapeutics tablet PO SCH ×2 (00:09→08:00)
[2019-06-12] MEDS: LORazepam 1 MG tablet PO SCH ×3 (00:10→12:10)
--- NOTE | 2019-06-12 00:30 | NUR ---
patient in bed eyes closed covers on rr even un labored no observable s/s of acute stress at this time
--- NOTE | 2019-06-12 01:47 | NUR ---
packet faxed to [facility]
--- NOTE | 2019-06-12 02:31 | NUR ---
PATIENT IN BED SUPINE COVERS ON EYES CLOSED RR EVEN UN LABORED NO OBSERVABLE S/S OF ACUTE STRESS AT THIS TIME WILL CONTINUE TO MONITOR, PATIENT IN HOME HEALTH WORKER AT BEDSIDE ALL NIGHT PER [employer] POLICY , PROVIDED HEALTH CARE WORKER WITH WATER AND WARM BLANKETS
--- NOTE | 2019-06-12 04:31 | NUR ---
patient in bed covers on eyes closed rr even un labored no observable s/s of acute stress at this time will continue to monitor, patient in home health care personal at bedside
[2019-06-12 06:00] VITALS: BP 151/69
--- NOTE | 2019-06-12 06:19 | NUR ---
PATIENT IN BED EYES CLOSED RR EVEN UN LABORED NO OBSERVABLE S/S OF ACUTE STRESS AT THIS TIME
--- NOTE | 2019-06-12 06:37 | NUR ---
SBAR TO IRA RN NO QUESTIONS OR CONCERNS AFTER ASSUMING CARE
[2019-06-12] MEDS ORDERED: insulin Lispro (HumaLOG) vial - multi-dose SQ SCH ×2 (07:30→09:30)
[2019-06-12] MEDS ORDERED: ZINC AMINO ACID CHELATE PO SCH (08:00)
[2019-06-12] MEDS ORDERED: ARIPIPRAZOLE 10 MG TABLET PO SCH (08:00)
[2019-06-12] MEDS ORDERED: pantoprazole 40mg Tablet.DR PO SCH (08:00)
[2019-06-12] MEDS ORDERED: lactobacillus rhamnosus 10,000 MMU CELLS/CAPSULE PO SCH (08:00)
[2019-06-12] MEDS: ezetimibe 10mg tablet PO SCH ×2 (08:00→12:08)
[2019-06-12] MEDS ORDERED: cyanocobalamin 500mcg tablet PO SCH (08:00)
[2019-06-12] MEDS ORDERED: tamsulosin 0.4mg capsule PO SCH (08:00)
[2019-06-12] MEDS: FLUoxetine 20mg capsule PO SCH ×2 (08:00→12:10)
[2019-06-12] MEDS: ascorbic acid 500mg tablet PO SCH ×2 (08:00→12:08)
[2019-06-12] MEDS: ferrous sulfate 325mg tablet PO SCH ×2 (08:00→12:10)
[2019-06-12] MEDS: atorvastatin 20mg tablet PO SCH ×2 (08:00→12:09)
[2019-06-12] MEDS: magnesium oxide 400mg tablet PO SCH ×2 (08:00→12:09)
[2019-06-12] MEDS ORDERED: aspirin 81mg tablet.DR PO SCH (08:00)
[2019-06-12] MEDS ORDERED: ipratropium/albuterol 3ml nebule NEB ONE (08:50)
[2019-06-12] MEDS ORDERED: albuterol 2.5 MG/3 ML nebule NEB ONE (08:50)
[2019-06-12 08:55] LABS: BASOPHILS # (AUTO) 0.1 X10'3 (0-0.2); EOSINOPHILS # (AUTO) 0.2 X10'3 (0-0.9); EOSINOPHILS % (AUTO) 2.1 % (0-6); HEMATOCRIT 49.2 % (42.0-52.0); HEMOGLOBIN 16.4 g/dl (14.0-17.9); LYMPHOCYTES # (AUTO) 1.6 X10'3 (1.1-4.8); LYMPHOCYTES % (AUTO) 18.7 % (21-51); MEAN CORPUSCULAR HEMOGLOBIN 28.5 PG (27.0-31.0); MEAN CORPUSCULAR HGB CONC 33.4 g/dL (33.0-36.5); MEAN CORPUSCULAR VOLUME 85.3 FL (78-98); MEAN PLATELET VOLUME 9.4 FL (7.4-10.4); MONOCYTES # (AUTO) 0.7 X10'3 (0-0.9); MONOCYTES % (AUTO) 8.6 % (2-12); NEUTROPHILS # (AUTO) 5.8 X10'3 (1.8-7.7); NEUTROPHILS % (AUTO) 69.6 % (42-75); PLATELET COUNT 165 X10'3 (140-440); RED BLOOD COUNT 5.77 X10'6 (4.70-6.10); RED CELL DISTRIBUTION WIDTH 16.6 % (11.5-14.5); WHITE BLOOD COUNT 8.3 X10'3 (4.5-11.0)
[2019-06-12 09:06] LABS: ALANINE AMINOTRANSFERASE 62 U/L (12-78); ALBUMIN 2.6 G/DL (3.4-5.0); ALBUMIN/GLOBULIN RATIO 0.9 (1.1-1.5); ALKALINE PHOSPHATASE 123 IU/L (46-116); ASPARTATE AMINO TRANSFERASE 44 U/L (10-37); BILIRUBIN,TOTAL 0.5 MG/DL (0.1-1.0); BLOOD UREA NITROGEN 21 MG/DL (7-18); BUN/CREATININE RATIO 20.8 (5.4-32.0); CALCIUM 8.8 MG/DL (8.5-10.1); CHLORIDE 108 MMOL/L (99-107); CREATININE 1.01 MG/DL (0.60-1.10); GLUCOSE 209 MG/DL (70-104); POTASSIUM 4.5 MMOL/L (3.5-5.1); TOTAL PROTEIN 5.6 G/DL (6.4-8.2); VALPROATE 5 UG/ML (50-100); eGFR 74 ML/MIN
[2019-06-12 09:09] LABS: ANION GAP 6 (8-16); SODIUM 141 MMOL/L (135-145)
[2019-06-12] MEDS ORDERED: divalproex sod 250mg ER (24-hour) tablet PO STA (09:23)
--- NOTE | 2019-06-12 09:25 | NUR ---
RECEIVED VO TO GIVE PT 7 UNITS HUMALOG INSULIN SUBCUT X 1 NOW
[2019-06-12] MEDS ORDERED: insulin Lispro (HumaLOG) vial - multi-dose SQ ONE (09:30)
[2019-06-12] MEDS ORDERED: DIVA-76 PO (09:51)
--- NOTE | 2019-06-12 10:24 | NUR ---
PT PEDIATRIC CLINICAL DIETICIAN RELala CONSULT WITH [facility] AWAITING KHOI RUIZ DECISION TO COME DOWN AND CONSULT OR NOT
--- NOTE | 2019-06-12 10:55 | NUR ---
KHOI RUIZ AT BEDSIDE
--- NOTE | 2019-06-12 11:10 | NUR ---
KHOI RUIZ TO TALK TO PROVIDER AND UPSTAIRS AND THEN GIVE INPUT, CAREGIVER CONTINUE TO BE AT BEDSIDE, PT CALM
[2019-06-12] MEDS ORDERED: FLUO20CA39 PO (11:48)
== END 2019-06-12 13:02 ==
LOC: ER 19:27
DX: F20.2 Catatonic schizophrenia (principal); E11.9 Type 2 diabetes mellitus without complications; Z88.8 Allergy status to other drugs, medicaments and biological substances; Z79.82 Long term (current) use of aspirin; Z79.4 Long term (current) use of insulin; Z79.899 Other long term (current) drug therapy
CPT/HCPCS: 36415; 70450; 71045; 80053; 80164; 80178; 80305; 80320; 80329; 81001; 82948; 83605; 84145; 84443; 85025; 87040; 94640; 94760; 96372; 99285; J1815